=== PATIENT | female | born 1960 | race Caucasian/White ===

== ENCOUNTER 2017-12-22 09:45 | Emergency (ER) | END 2017-12-22 11:54 | disposition home or self-care (01) ==

== ENCOUNTER 2018-10-29 05:25 | Day surgery (SDC) | payer OTHER ==
[2018-10-29] VITALS (8 sets, daily range): BP systolic 111–160; BP diastolic 48–75; PULSE 68–75; RESP 16–18; Ht 165.1 cm; Wt 59.3 kg
[~2018-10-29] VITALS: Ht 165.1 cm; Wt 59.3 kg
[~2018-10-29 05:25] MED LIST: ACET325T33 PO; ATOR40TA68 PO; CARAS PO; CEPH500C PO; CHOL200056 PO; CLOP75TA19 PO; FENO160T13 PO; FER325 PO; GABA100C14 PO; GLIP10TA14 PO; Insulin Glargine SC; LACT1CAP28 PO; LEVO250T9 PO; LISI-313 PO; NOVO3I SC; PANT40TA4 PO; SAN30GM TOP; SITA1TBM7 PO
[2018-10-29] MEDS ORDERED: CEFAZOLIN 2 GM/50 ML (PMX) 50 ML IVPB ONE (07:00)
[2018-10-29] MEDS ORDERED: LACTATED RINGER'S 1,000 ML IV* SCH (07:00)
[2018-10-29] MEDS ORDERED: POLYMYXIN/BACITRACIN 1L IRRIG ONE (07:00)
[2018-10-29] MEDS ORDERED: BUPIVACAINE 0.5% (SDV) 30 ML INJ ONE (07:00)
[2018-10-29] MEDS ORDERED: INSU200I SQ (07:01)
[2018-10-29] MEDS ORDERED: INSU100I33 SC (07:02)
--- NOTE | 2018-10-29 07:02 | HPN ---
Date/Time of Note Date/Time of Note DATE: 10/29/18 TIME: 07:02 Interval H&P Admission Note Pt. seen H&P reviewed: No system changes MEENU PATRICK DPM Oct 29, 2018 07:02
[2018-10-29] MEDS ORDERED: FER325 PO (07:04)
[2018-10-29] MEDS ORDERED: HYDR100T25 PO (07:06)
[2018-10-29] MEDS ORDERED: MECL-77 PO (07:08)
--- NOTE | 2018-10-29 07:18 | PREAC ---
Date/Time of Note Date/Time of Note DATE: 10/29/18 TIME: 07:16 Anesthesia Eval and Record Evaluation Time Pre-Procedure Interview DATE: 10/29/18 TIME: 07:16 Age 58 Sex female NPO: 8 hrs Preoperative diagnosis left foot diabetic ulcer Planned procedure left foot debridement Past Medical History Past Medical History: Includes Cardio: HTN, Dyslipidemia Endo: Diabetes Neuro: Peripheral neuropathy Surgery & Anesthesia Issues No known issue Meds Anticoagulation: No Beta Kristen within 24 hr: No Reason Beta Kristen not given: Pt. not on B-Kristen Active Scripts Levofloxacin* (Levofloxacin*) 250 Mg Tablet, 250 MG PO DAILY@06, #38 TAB 6 weeks therapy (already received 4 days). Prov:LAMONT MARTINS SCIENTOLOGIST 09/05/18 Pantoprazole* (Pantoprazole*) 40 Mg Tablet.dr, 40 MG PO DAILY@06 for 14 Days, #14 Prov:CASSIUS NEGRETE MD 08/26/18 Acetaminophen* (Tylenol*) 325 Mg Tablet, 650 MG PO Q6H PRN for FEVER GREATER THAN 100.6 for 1 Day, #1 TAB Prov:CASSIUS NEGRETE MD 08/26/18 Reported Medications Meclizine Hcl* (Meclizine Hcl*) 25 Mg Tablet, 25 MG PO TID PRN for DIZZINESS, TAB 10/29/18 Hydralazine Hcl* (Hydralazine Hcl*) 100 Mg Tablet, 100 MG PO BID PRN for ELEVATED BLOOD PRESSURE, #90 TAB 10/29/18 Ferrous Sulfate* (Ferrous Sulfate*) 325 Mg Tabec, 325 MG PO DAILY, TAB 10/29/18 Insulin Glargine,Hum.rec.anlog (Basaglar Kwikpen U-100) 100 Unit/1 Ml Insuln.pen, 40 UNIT SC QHS, EA 10/29/18 Insulin Lispro (Humalog Kwikpen) 200 Unit/1 Ml Insuln.pen, 20 UNIT SQ AC BREAKFAST DINNER, EA 10/29/18 Cholecalciferol (Vitamin D3) (Vitamin D-3) 2,000 Unit Tablet, 2000 UNIT PO DAILY, TAB 08/20/18 Glipizide* (Glipizide*) 10 Mg Tablet, 10 MG PO AC BREAKFAST DINNER, TAB 08/20/18 Sitagliptin Phos-Metformin Hcl (Janumet XR) 100-1,000 Mg Tbmp.24hr, 1 TAB PO WITH DINNER, #30 TAB 08/20/18 Lisinopril* (Lisinopril*) 5 Mg Tablet, 5 MG PO BID, #30 TAB 08/20/18 Gabapentin* (Gabapentin*) 100 Mg Capsule, 100 MG PO BID, #90 CAP 08/20/18 Discontinued Reported Medications Ferrous Sulfate* (Ferrous Sulfate*) 325 Mg Tabec, 325 MG PO DAILY, TAB 08/20/18 Clopidogrel Bisulfate* (Clopidogrel Bisulfate*) 75 Mg Tablet, 75 MG PO DAILY, #30 TAB 08/20/18 Fenofibrate, Micronized* (Fenofibrate*) 160 Mg Tablet, 160 MG PO DAILY, TAB 08/20/18 Atorvastatin* (Atorvastatin*) 40 Mg Tablet, 40 MG PO QHS, #30 TAB 08/20/18 Cephalexin* (Cephalexin*) 500 Mg Capsule, 500 MG PO QID, #28 CAP 08/20/18 Discontinued Scripts Collagenase* (Santyl*) 30 Gm Oint..gm., 1 APPLIC TOP DAILY for 14 Days, #14 Prov:CASSIUS NEGRETE MD 08/26/18 [Insulin Glargine] 100 UNITS/ML SOLN No Conflict Check, 40 UNITS SC QHS for 14 Days Check blood sugars at home before meals and at bedtime. Prov:CASSIUS NEGRETE MD 08/26/18 Insulin Aspart* (Novolog Insulin Pen*) 100 Unit/Ml Soln, 13 UNIT SC WITH MEALS for 10 Days, #1 Prov:CASSIUS NEGRETE MD 08/26/18 Sucralfate* (Carafate*) 1 Gm/10 Ml Susp, 1 GM PO QID for 14 Days, #30 2 Refills Prov:CASSIUS NEGRETE MD 08/26/18 Lactobacillus Rhamnosus GG (Culturelle) 1 Each Capsule, 1 CAP PO BID for 7 Days, CAP OTC Prov:CASSIUS NEGRETE MD 08/26/18 Current Medications Cefazolin Sodium/ Dextrose 50 ml @ 100 mls/hr PRE-OP ONCE IVPB ; Start 10/29/18 at 07:00; Stop 10/29/18 at 07:29 Lactated Ringer's 1,000 ml @ 25 mls/hr Q24H IV* ; Start 10/29/18 at 07:00; Stop 10/30/18 at 22:59 Insulin Human Regular (Humulin R) 10 unit ONCE ONCE SC ; Start 10/29/18 at 07:30; Stop 10/29/18 at 07:31; Status UNV Meds reviewed: Yes Allergies Coded Allergies: aspirin (Unverified Allergy, Unknown, itching, 10/29/18) Allergies Reviewed: Yes Labs/Studies Labs Reviewed: Reviewed by anesthesiologist (glucose 298, dr keith is aware and wishes to proceed with case, plan to give 10 units insulin.) test: N/A Studies: ECG, CXR Pre-procedure Exam Last vitals Vital Signs Date Temp Pulse Resp B/P (MAP) Pulse Ox O2 O2 Flow FiO2 Time Delivery Rate 10/29/18 97.8 68 16 160/75 96 05:40 (103) Airway: Adequate mouth opening, Adequate thyromental dist Mallampati: Mallampati II Teeth: Normal (edentulous) Lung: Normal Heart: Normal ASA Physical Status ASA physical status: 3 Emergency: None Planned Anesthetic General/MAC: LMA Planned Pain Management Parenteral pain med, Local by surgeon Pre-operative Attestations Prior to commencing anesthesia and surgery, the patient was re-evaluated, there was verification of: *The patient's identity *The results of appropriate recent lab work and preoperative vital signs *The above evaluation not changing prior to induction *Anesthetic plan, risk benefits, alternative and complications discussed with patient/family; questions answered; patient/family understands, accepts and wishes to proceed. JIMI PATEL Oct 29, 2018 07:18
[2018-10-29] MEDS ORDERED: FENTAnyl 50 MCG/ML VIAL ONE (07:27)
[2018-10-29] MEDS ORDERED: CEFAZOLIN 1 GM INJ ONE (07:27)
[2018-10-29] MEDS ORDERED: PROPOFOL 40 ML ONE (07:27)
[2018-10-29] MEDS ORDERED: MIDAZOLAM 1 MG/ML 2 ML INJ ONE (07:27)
[2018-10-29] MEDS ORDERED: HYDROCODONE/APAP (10/325) TAB PO PRN (07:30)
[2018-10-29] MEDS ORDERED: ONDANSETRON (ODT) 4 MG TAB ODT PRN (07:30)
[2018-10-29] MEDS ORDERED: GLUCAGON 1 MG INJ IM PRN (07:30)
[2018-10-29] MEDS ORDERED: GLUCOSE GEL 15 GRAM TUBE BUCCAL PRN (07:30)
[2018-10-29] MEDS ORDERED: GLUCOSE GEL 15 GRAM TUBE PO PRN ×2 (07:30)
[2018-10-29] MEDS ORDERED: DEXTROSE 50% 50 ML SYRINGE IV PRN ×2 (07:30)
[2018-10-29] MEDS ORDERED: INSULIN REGULAR, HUMAN 100 UNIT/1 ML 3ML VIAL SC ONE (07:30)
[2018-10-29] MEDS ORDERED: METOCLOPRAMIDE 10 MG INJ ONE (07:38)
[2018-10-29] MEDS ORDERED: ONDANSETRON 4 MG INJ ONE (07:38)
[2018-10-29] MEDS ORDERED: POLYMYXIN B 500000 UNIT INJ ONE (07:38)
[2018-10-29] MEDS ORDERED: BACITRACIN 50000 UNITS INJ ONE (07:39)
[2018-10-29] MEDS ORDERED: VANCOMYCIN 1 GM INJ ONE (07:48)
[2018-10-29] MEDS ORDERED: TOBRAMYCIN 1.2 GM POWDER ONE (07:48)
[2018-10-29] MEDS ORDERED: FENTAnyl 50 MCG/ML VIAL IV PRN ×3 (08:30)
[2018-10-29] MEDS ORDERED: ONDANSETRON 4 MG INJ IV PRN (08:30)
[2018-10-29] MEDS ORDERED: OXYCODONE/ACETAMINOPHEN (5/325) TAB PO PRN ×2 (08:30)
--- NOTE | 2018-10-29 09:04 | SIPON ---
Date/Time of Note Date/Time of Note DATE: 10/29/18 TIME: 09:01 Operative Report Preoperative Diagnosis Osteomyelitis 1st Met. and Prox Phalanx Postoperative Diagnosis Same Operation/Procedure Performed Debridement of Osteomyelitis Bone application of antibiotic beads. Allograft. Calcaneal region. Surgeon see signature line operator/assistant foreman none. Anesthesia: MAC Estimated blood loss: minimal Transfusion Required none Specimen Osteomyelitic bone. Grafts/Implants none Complications none MEENU PATRICK DPM Oct 29, 2018 09:04
--- NOTE | 2018-10-29 09:21 | PAC ---
Date/Time of Note Date/Time of Note DATE: 10/29/18 TIME: 09:21 Post-Anesthesia Notes Post-Anesthesia Note Last documented vital signs Vital Signs Date Temp Pulse Resp B/P (MAP) Pulse Ox O2 O2 Flow FiO2 Time Delivery Rate 10/29/18 98.9 09:04 10/29/18 75 118/54 99 Room Air 08:58 (75) 10/29/18 16 05:40 Activity: WNL Respiratory function: WNL Cardiovascular function: WNL Mental status: Baseline Pain reasonably controlled: Yes Hydration appropriate: Yes Nausea/Vomiting absent: Yes JIMI PATEL Oct 29, 2018 09:21
--- NOTE | 2018-10-29 13:34 | OPR ---
DATE OF OPERATION: 10/29/2018 PREOPERATIVE DIAGNOSIS: Left foot osteomyelitis of the 1st metatarsal and proximal phalanx. POSTOPERATIVE DIAGNOSIS: Left foot osteomyelitis of the 1st metatarsal and proximal phalanx. OPERATIONS: Debridement of osteomyelitic bone of the 1st metatarsal and proximal phalanx of the left foot, ulceration of the medial calcaneal region, osteomyelitis. DESCRIPTION OF PROCEDURE: The patient was brought into the OR and left foot and ankle was prepared utilizing Betadine solution. A tourniquet was applied around the left ankle. The foot and ankle were then exsanguinated and the tourniquet was applied and was elevated to approximately 250 mmHg. It should be noted that approximately 10 mL of 0.5% plain Marcaine was utilized circumferentially around the 1st metatarsophalangeal joint region and approximately 5 mL was used around the ulceration at the calcaneal region medially, left foot. Attention was then directed to the dorsomedial aspect where the ulceration which is approximately 2.5 x 2 cm was circumscribed with a skin arthroplasty. The incision site was then deepened down to the capsular tissue. It should be noted that the capsular tissue demonstrated very atypical dystrophic scar tissue. The #15 blade was then utilized to perform a linear capsulotomy down to the bone of head of 1st metatarsal and the base of the proximal phalanx. The osteomyelitic bone was noted at the distal aspect of the 1st metatarsal. Utilizing a sagittal saw, the osteomyelitic bone region was removed in toto. At the base of proximal phalanx, the sagittal saw was utilized to remove approximately 3 to 4 mm of bone which was osteomyelitic. The bone was then inspected both at the proximal phalanx and the 1st metatarsal and no osteomyelitic changes clinically were noted. It should be noted that deep culture was taken, aerobic and anaerobic. The joint space was then once again inspected and the area was copiously lavaged with antibiotic solution. Utilizing a #15 blade, the scar tissue was freed up more over at lateral aspect of head of the 1st metatarsal as well as base of the proximal phalanx. After copiously lavaged with antibiotic solution, the deep space was filled utilizing antibiotic beads approximately 10 mL of Stimulan into the space area. This aligned and approximated the 1st metatarsal and the proximal phalanx. The area was then inspected once again utilizing a scissor and #15 blade, any remaining scar tissue was removed around the capsular region. The capsule was then closed utilizing 2-0 Vicryl suture. There was good range of motion noted of the great toe on the 1st metatarsal. The capsular area was closed in the subcutaneous tissue was closed with 2-0 Vicryl suture. Utilizing 3-0 nylon suture in horizontal mattress was utilized to close the incision site back to the proximal aspect. Approximately 1 cm of the proximal incision was left nonsutured and quarter-inch [place] drain was applied to the area. Attention was then redirected to the medial calcaneal region where utilizing a #10 blade and a curet, the ulceration was debrided down to the fascial layer. After debridement, application of Stravix 2 x 4 cm allograft was applied over the ulceration. This was secured down with a 3-0 nylon suture of circumferentially around the allograft. At the end of the case, approximately 7 mL of 0.5% plain Marcaine was utilized around the 1st metatarsal and the calcaneal region. The dressing of Adaptic, 4 x 4's, rolled gauze and Coban was then applied. The tourniquet was released and normoactive hyperemia was noted to the digits of the left foot. The patient tolerated the procedure well and left the room in stable condition. There were no intraoperative complications. There was minimal blood loss noted. Dictated By: MEENU SHEPHERD/KAMRYN Conf#: [id number] DID#: [id number]
== END 2018-10-29 12:06 | disposition home or self-care (01) ==
LOC: SDS 05:25
PROVIDERS: ATTEND Podiatrist Foot & Ankle Surgery
DX: M86.672 Other chronic osteomyelitis, left ankle and foot (principal); E11.621 Type 2 diabetes mellitus with foot ulcer; I10 Essential (primary) hypertension
CPT/HCPCS: 11044; 73630; 82962; 84132; 87070; 87075; 88304; 88311; 97162; C1713; J0690; J1815; J2250; J2405; J2765; J3010; J3370; Z7512; Z7610

== ENCOUNTER 2018-11-11 03:35 | Inpatient (IN) | payer OTHER ==
[~2018-11-11] VITALS: Ht 162.6 cm; Wt 67.8 kg
[~2018-11-11 03:35] MED LIST changes: -ATOR40TA68 PO; -CARAS PO; -CEPH500C PO; -CLOP75TA19 PO; -FENO160T13 PO; +HYDR100T25 PO; +INSU100I33 SC; +INSU200I SQ; -Insulin Glargine SC; -LACT1CAP28 PO; +MECL-77 PO; -NOVO3I SC; -SAN30GM TOP
[2018-11-11] MEDS ORDERED: SOD CHLORIDE 0.9% 500 ML IV STA (05:09)
[2018-11-11] MEDS ORDERED: ONDANSETRON 4 MG INJ IV STA (05:09)
[2018-11-11] MEDS ORDERED: morphine 4 MG/ML VIAL IV STA (05:09)
[2018-11-11] MEDS ORDERED: PIPER-TAZO 3.375 GM IV (PMX) 100 ML IVPB STA (06:10)
[2018-11-11] MEDS ORDERED: ACETAMINOPHEN 325 MG TAB PO PRN ×2 (06:30→07:00)
[2018-11-11] MEDS ORDERED: VANCOMYCIN 1 GM (PMX) 250 ML IVPB ONE (06:30)
[2018-11-11] MEDS ORDERED: ONDANSETRON 4 MG INJ IV PRN ×2 (06:30→07:00)
[2018-11-11] MEDS ORDERED: VANCOMYCIN IV PER PHARMACY XX SCH (07:00)
[2018-11-11] MEDS ORDERED: LEVOFLOXACIN 750MG/D5W (PMX) 150 ML IVPB SCH (07:00)
[2018-11-11] MEDS ORDERED: BISACODYL (EC) 5 MG TAB PO PRN (07:00)
[2018-11-11] MEDS ORDERED: HYDROCODONE/APAP (5/325) TAB PO PRN (07:00)
[2018-11-11] MEDS ORDERED: NACL 0.9% 3 ML SYG IV SCH (07:00)
[2018-11-11] MEDS ORDERED: DOCUSATE SODIUM 100 MG CAP PO PRN (07:00)
[2018-11-11] MEDS ORDERED: hydrALAzine 20 MG INJ IV ONE (07:30)
--- NOTE | 2018-11-11 07:32 | ERD ---
ER Documentation Chief Complaint Chief Complaint Pt reports sx on L foot 10/29/18 c/o vomiting and pain to foot HPI Patient is a 58-year-old female with hypertension and diabetes who presents with a left foot wound. The patient said that she recently had a procedure done on her left foot by podiatry and they took out the stitches. However the wound is open and there is yellow water coming from the wound. The patient has no fever s. She is having vomiting. She has foot pain as well. Upon review of old medical records this is the patient's third visit to the ER since November 2017. ROS All systems reviewed and are negative except as per history of present illness. Medications Home Meds Active Scripts Levofloxacin* (Levofloxacin*) 250 Mg Tablet, 250 MG PO DAILY@06, #38 TAB 6 weeks therapy (already received 4 days). Prov:LAMONT MARTINS NP 09/05/18 Pantoprazole* (Pantoprazole*) 40 Mg Tablet.dr, 40 MG PO DAILY@06 for 14 Days, #14 Prov:CASSIUS NEGRETE MD 08/26/18 Acetaminophen* (Tylenol*) 325 Mg Tablet, 650 MG PO Q6H PRN for FEVER GREATER THAN 100.6 for 1 Day, #1 TAB Prov:CASSIUS NEGRETE MD 08/26/18 Reported Medications Meclizine Hcl* (Meclizine Hcl*) 25 Mg Tablet, 25 MG PO TID PRN for DIZZINESS, TAB 10/29/18 Hydralazine Hcl* (Hydralazine Hcl*) 100 Mg Tablet, 100 MG PO BID PRN for ELEVATED BLOOD PRESSURE, #90 TAB 10/29/18 Ferrous Sulfate* (Ferrous Sulfate*) 325 Mg Tabec, 325 MG PO DAILY, TAB 10/29/18 Insulin Glargine,Hum.rec.anlog (Basaglar Kwikpen U-100) 100 Unit/1 Ml Insuln.pen, 40 UNIT SC QHS, EA 10/29/18 Insulin Lispro (Humalog Kwikpen) 200 Unit/1 Ml Insuln.pen, 20 UNIT SQ AC BREAKFAST DINNER, EA 10/29/18 Cholecalciferol (Vitamin D3) (Vitamin D-3) 2,000 Unit Tablet, 2000 UNIT PO DAILY, TAB 08/20/18 Glipizide* (Glipizide*) 10 Mg Tablet, 10 MG PO AC BREAKFAST DINNER, TAB 08/20/18 Sitagliptin Phos-Metformin Hcl (Janumet XR) 100-1,000 Mg Tbmp.24hr, 1 TAB PO WITH DINNER, #30 TAB 08/20/18 Lisinopril* (Lisinopril*) 5 Mg Tablet, 5 MG PO BID, #30 TAB 08/20/18 Gabapentin* (Gabapentin*) 100 Mg Capsule, 100 MG PO BID, #90 CAP 08/20/18 Allergies Allergies: Coded Allergies: aspirin (Unverified Allergy, Unknown, itching, 10/29/18) PMhx/Soc History of Surgery: Yes (LEFT FOOT X2,RIGHT FOOT X1) Anesthesia Reaction: No Hx Neurological Disorder: No Hx Respiratory Disorders: No Hx Cardiac Disorders: Yes (HTN, HLD) Hx Psychiatric Problems: No Hx Miscellaneous Medical Probl: Yes (DM) Hx Alcohol Use: No Hx Substance Use: No Hx Tobacco Use: No Smoking Status: Never smoker FmHx Family History: No diabetes Physical Exam Vitals Vital Signs Date Temp Pulse Resp B/P (MAP) Pulse Ox O2 O2 Flow FiO2 Time Delivery Rate 11/11/18 98.4 82 19 156/77 100 Room Air 07:20 (103) 11/11/18 97.8 96 20 227/88 99 03:37 (134) Physical Exam Const: No acute distress Head: Atraumatic Eyes: Normal Conjunctiva ENT: Normal External Ears, Nose and Mouth. Neck: Full range of motion. No meningismus. Resp: Clear to auscultation bilaterally Cardio: Regular rate and rhythm, no murmurs Abd: Soft, non tender, non distended. Normal bowel sounds Skin: Open wound to the medial aspect of the left foot with drainage, foul- smelling, dry wound to the left heel Back: No midline or flank tenderness Ext: No cyanosis, or edema Neur: Awake and alert Psych: Normal Mood and Affect Result Diagram: 11/11/1852511/11/18 0526 Results 24 hrs Laboratory Tests Test 11/11/18 05:26 White Blood Count 9.7 10^3/ul Red Blood Count 4.29 10^6/ul Hemoglobin 8.4 g/dl Hematocrit 27.9 % Mean Corpuscular Volume 65.0 fl Mean Corpuscular Hemoglobin 19.6 pg Mean Corpuscular Hemoglobin Concent 30.1 g/dl Red Cell Distribution Width 16.0 % Platelet Count 322 10^3/UL Mean Platelet Volume 10.4 fl Immature Granulocytes % 0.300 % Neutrophils % 72.7 % Lymphocytes % 18.9 % Monocytes % 6.5 % Eosinophils % 1.2 % Basophils % 0.4 % Nucleated Red Blood Cells % 0.0 /100WBC Immature Granulocytes # 0.030 10^3/ul Neutrophils # 7.0 10^3/ul Lymphocytes # 1.8 10^3/ul Monocytes # 0.6 10^3/ul Eosinophils # 0.1 10^3/ul Basophils # 0.0 10^3/ul Nucleated Red Blood Cells # 0.0 10^3/ul Sodium Level 138 mmol/L Potassium Level 5.4 mmol/L Chloride Level 105 mmol/L Carbon Dioxide Level 22 mmol/L Anion Gap 11 Blood Urea Nitrogen 26 mg/dl Creatinine 0.98 mg/dl Est Glomerular Filtrat Rate mL/min 58 mL/min Glucose Level 220 mg/dl Calcium Level 10.4 mg/dl Total Bilirubin 0.2 mg/dl Direct Bilirubin 0.00 mg/dl Indirect Bilirubin 0.2 mg/dl Aspartate Amino Transf (AST/SGOT) 19 IU/L Alanine Aminotransferase (ALT/SGPT) 17 IU/L Alkaline Phosphatase 170 IU/L Troponin I < 0.012 ng/ml B-Type Natriuretic Peptide 340 PG/ML Total Protein 8.0 g/dl Albumin 4.4 g/dl Globulin 3.60 g/dl Albumin/Globulin Ratio 1.22 Current Medications Medications Dose Sig/Jyothi Start Time Status Last (Trade) Ordered Route PRN Stop Time Admin Dose Reason Admin Sodium 500 ml @ Q1H STAT 11/11/18 DC 11/11/18 Chloride 500 mls/hr IV 05:09 05:26 11/11/18 06:08 Morphine 4 mg ONCE STAT 11/11/18 DC 11/11/18 Sulfate IV 05:09 05:26 (morphine) 11/11/18 05:10 Ondansetron 4 mg ONCE STAT 11/11/18 DC 11/11/18 HCl (Zofran IV 05:09 05:26 Inj) 11/11/18 05:10 Vancomycin 250 ml @ ONCE ONCE 11/11/18 11/11/18 HCl 125 mls/hr IVPB 06:30 07:27 11/11/18 08:29 Piperacillin 100 ml @ ONCE STAT 11/11/18 DC 11/11/18 Sod/ 200 mls/hr IVPB 06:10 06:58 Tazobactam 11/11/18 06:39 Sod Ondansetron 4 mg BRIDGE ORDER 11/11/18 DC HCl (Zofran PRN IV 06:30 Inj) NAUSEA/VOMITI 11/11/18 07:23 NG 650 mg ER BRIDGE 11/11/18 DC Acetaminophen PRN PO 06:30 (Tylenol .MILD PAIN 11/11/18 07:23 Tab) 1-3 OR TEMP IV Flush 3 ml PER 11/11/18 (NS 3 ml) PROTOCOL IV 07:00 Ondansetron 4 mg Q6H PRN 11/11/18 HCl (Zofran IV 07:00 Inj) NAUSEA/VOMITI NG 650 mg Q6H PRN 11/11/18 Acetaminophen PO .PAIN 1-3 07:00 (Tylenol OR TEMP Tab) 1 tab Q6H PRN 11/11/18 Acetaminophen PO .MOD PAIN 07:00 / 4-6 Hydrocodone Bitart ([place] (5/325)) Docusate 100 mg Q12H PRN 11/11/18 Sodium PO 07:00 (Colace) .CONSTIPATION Bisacodyl 5 mg DAILY PRN 11/11/18 (Dulcolax) PO 07:00 .CONSTIPATION 150 ml @ Q24H IVPB 11/11/18 UNV Levofloxacin/ 100 mls/hr 07:00 Dextrose Vancomycin VANCOMYCIN PER 11/11/18 UNV HCl (Vanco PER PHARMACY PROTOCOL XX 07:00 Iv Per Pharmacy) Hydralazine 100 mg BID PRN 11/11/18 UNV HCl PO ELEVATED 07:30 (Apresoline) BLOOD PRESSURE Insulin 40 unit QHS SC 11/11/18 UNV Glargine 21:00 (Lantus) 40 mg DAILY@06 11/12/18 Pantoprazole PO 06:00 (Protonix Tab) 20 unit AC BREAKFAST 11/11/18 UNV Miscellaneous DINNER SQ 17:30 Information Lisinopril 5 mg BID PO 11/11/18 UNV (Zestril) 09:00 Hydralazine 10 mg ONCE ONCE 11/11/18 HCl IV 07:30 (Apresoline) 11/11/18 07:31 Procedures/MDM Chest x-ray done by radiology. X-ray left foot read by radiology. Ultrasound of the lower extremities read by radiology. Patient is a 58-year-old female who presents with a diabetic foot wound with infection. I doubt sepsis at this time. However this is a nonhealing wound that is getting worse. There is drainage and she does have diabetes. For this reason I believe the patient requires inpatient admission for IV antibiotics. Vancomycin and Zosyn were given after blood cultures were obtained. The patient will be admitted to the care of Dr. Topete from the panel team. The patient will likely need podiatry and wound care consults while admitted to the hospital. Departure Diagnosis: Primary Impression: Diabetic foot infection Additional Impression: Vomiting Vomiting type: unspecified Vomiting Intractability: non-intractable Nausea presence: with nausea Qualified Codes: R11.2 - Nausea with vomiting, unspecified Condition: GOLDIE Duarte MD Nov 11, 2018 07:31
[2018-11-11] MEDS ORDERED: GLUCOSE GEL 15 GRAM TUBE PO PRN ×2 (08:00)
[2018-11-11] MEDS ORDERED: INSULIN ASPART [NOVOLOG] 3 ML PEN SC SCH (08:00)
[2018-11-11] MEDS ORDERED: GLUCOSE GEL 15 GRAM TUBE BUCCAL PRN (08:00)
[2018-11-11] MEDS ORDERED: DEXTROSE 50% 50 ML SYRINGE IV PRN ×2 (08:00)
[2018-11-11] MEDS ORDERED: GLUCAGON 1 MG INJ IM PRN (08:00)
[2018-11-11] MEDS ORDERED: LISINOPRIL 5 MG TAB PO SCH (09:00)
[2018-11-11 09:50] VITALS: Ht 162.6 cm; Wt 67.8 kg
[2018-11-11 10:05] VITALS: BP 119/57; PULSE 85; RESP 18
--- NOTE | 2018-11-11 13:17 | HP ---
Date/Time of Note Date/Time of Note DATE: 11/11/18 TIME: 13:07 Assessment/Plan VTE Prophylaxis SCD contraindicated: other Pharmacological prophylaxis: LMWH Lines/Catheters IV Catheter Type (from Nrs): Saline Lock Assessment/Plan Hospital Course SUBJECTIVE: Lying in bed comfortably. No acute distress. OBJECTIVE: Vital signs-see below PHYSICAL EXAM: Constitutional: Well-developed, well-nourished not in acute distress. HEENT: Head atraumatic and normocephalic. Eyes: Extraocular muscles intact. Anicteric sclerae. Pupils equal bilaterally, reactive to light. NECK: Supple without lymph node. CHEST: Clear and good breath sounds equally. No wheezing. No rhonchi. HEART: S1, S2. Regular rate and rhythm. ABDOMEN: Soft with no rebound tenderness. Bowel sounds were present. EXTREMITIES: Left foot covered with Kerlix dressing, clean/dry/intact. No oozing noted outside. Full range of motion in all the extremities. No cyanosis, clubbing or edema. NEUROLOGIC: Alert and oriented x3. No focal deficit. No sensory deficit. PSYCHOSOCIAL: In a good mood. No signs of depression. INTEGUMENTARY: Moist mucous membranes. Good skin turgor, intact. ASSESSMENT AND PLAN: 58-year-old female with diabetes, hypertension, diabetic foot ulcers with history of multiple toe amputations, osteomyelitis, who also had a recent procedure done on her left foot with sutures removed last week, came back with wound remained open and started draining yellow secretions. 1. Left draining diabetic foot ulcer. -Podiatry consult with -Wound management per side stapler. Obtain cultures. -IV antimicrobials and ID consultation for further abx management. 2. Chronic anemia with inflammation -Stable H&H -on iron 3. Essential hypertension. -Needs more control. We will up titrate lisinopril 4.Diabetic neuropathy Resume gabapentin 5.Type 2 diabetes -A1c -Continue insulin Lantus. Start Accu-Cheks/pre-meal insulin and sliding scale insulin. -Normal heart rate controlled diet. 6.Vitamin D deficiency. -resume supplementation. DVT prophylaxis: Lovenox PUD prophylaxis: PPI Rest of the management depend on hospital course. Approximately 60 m spent on this history and physical. Patient was seen in collaboration with Dr. Junior. Result Diagram: 4/16/19 0526 4/16/19 0526 Results 24hrs Laboratory Tests Test 11/11/18 05:26 White Blood Count 9.7 # Red Blood Count 4.29 Hemoglobin 8.4 L Hematocrit 27.9 L Mean Corpuscular Volume 65.0 L Mean Corpuscular Hemoglobin 19.6 L Mean Corpuscular Hemoglobin Concent 30.1 L Red Cell Distribution Width 16.0 H Platelet Count 322 Mean Platelet Volume 10.4 Immature Granulocytes % 0.300 Neutrophils % 72.7 Lymphocytes % 18.9 Monocytes % 6.5 Eosinophils % 1.2 Basophils % 0.4 Nucleated Red Blood Cells % 0.0 Immature Granulocytes # 0.030 Neutrophils # 7.0 Lymphocytes # 1.8 Monocytes # 0.6 Eosinophils # 0.1 Basophils # 0.0 Nucleated Red Blood Cells # 0.0 Sodium Level 138 Potassium Level 5.4 H Chloride Level 105 Carbon Dioxide Level 22 Anion Gap 11 Blood Urea Nitrogen 26 H Creatinine 0.98 Est Glomerular Filtrat Rate mL/min 58 L Glucose Level 220 Calcium Level 10.4 H Total Bilirubin 0.2 Direct Bilirubin 0.00 Indirect Bilirubin 0.2 Aspartate Amino Transf (AST/SGOT) 19 Alanine Aminotransferase (ALT/SGPT) 17 Alkaline Phosphatase 170 H Troponin I < 0.012 B-Type Natriuretic Peptide 340 H Total Protein 8.0 Albumin 4.4 Globulin 3.60 H Albumin/Globulin Ratio 1.22 HPI/ROS Admit Date/Time Admit Date/Time Nov 11, 2018 at 06:24 Hx of Present Illness This is a 58-year-old female with type 2 diabetes, hypertension, iron deficient anemia, diabetic foot ulceration, history of multiple toe amputations, neurop athy, history of osteomyelitis, admitted with left foot diabetic ulcer with draining. Apparently, patient had recent left foot/toe debridement about 2 weeks ago and was seen by her side stapler in the clinic last week and her sutures were removed. Wound remained open since sutures were taken out and then it started to drain yellow secretions for which she decided to come back to the emergency room. Patient denied chest pain, dizziness, shortness of breath, nausea, vomiting, abdominal pain, loss of consciousness, dizziness, speech difficulties, vision changes, numbness, tingling or other constitutional symptoms. Initial labs hemoglobin 8.4, hematocrit 27.9, potassium 5.4. Did not show any acute process or evidence of osteomyelitis. Venous ultrasound was negative for DVT. ROS A 12 point review of system was assessed and is negative other than what is ment ioned in the HPI. PMH/Family/Social Past Medical History See HPI Medications Current Medications IV Flush (NS 3 ml) 3 ml PER PROTOCOL IV ; Start 11/11/18 at 07:00 Ondansetron HCl (Zofran Inj) 4 mg Q6H PRN IV NAUSEA/VOMITING; Start 11/11/18 at 07:00 Acetaminophen (Tylenol Tab) 650 mg Q6H PRN PO .PAIN 1-3 OR TEMP; Start 11/11/18 at 07:00 Acetaminophen/ Hydrocodone Bitart ([place] (5/325)) 1 tab Q6H PRN PO .MOD PAIN 4- 6; Start 11/11/18 at 07:00 Docusate Sodium (Colace) 100 mg Q12H PRN PO .CONSTIPATION; Start 11/11/18 at 07:00 Bisacodyl (Dulcolax) 5 mg DAILY PRN PO .CONSTIPATION; Start 11/11/18 at 07:00 Vancomycin HCl (Vanco Iv Per Pharmacy) VANCOMYCIN PER PHARMACY PER PROTOCOL XX ; Start 11/11/18 at 07:00 Hydralazine HCl (Apresoline) 100 mg BID PO ; Start 11/11/18 at 09:00 Insulin Glargine (Lantus) 40 units QHS SC ; Start 11/11/18 at 21:00 Pantoprazole (Protonix Tab) 40 mg DAILY@06 PO ; Start 11/12/18 at 06:00 Insulin Aspart (Novolog Insulin Pen) 20 unit AC BREAKFAST DINNER SC ; Start 11/11/18 at 08:00 Lisinopril (Zestril) 5 mg BID PO ; Start 11/11/18 at 09:00 Miscellaneous Information 1 ea NOTE XX ; Start 11/11/18 at 08:00 Glucose (Glutose) 15 gm Q15M PRN PO DECREASED GLUCOSE; Start 11/11/18 at 08:00 Glucose (Glutose) 22.5 gm Q15M PRN PO DECREASED GLUCOSE; Start 11/11/18 at 08:00 Dextrose (D50w Syringe) 25 ml Q15M PRN IV DECREASED GLUCOSE; Start 11/11/18 at 08:00 Dextrose (D50w Syringe) 50 ml Q15M PRN IV DECREASED GLUCOSE; Start 11/11/18 at 08:00 Glucagon (Glucagen) 1 mg Q15M PRN IM DECREASED GLUCOSE; Start 11/11/18 at 08:00 Glucose (Glutose) 15 gm Q15M PRN BUCCAL DECREASED GLUCOSE; Start 11/11/18 at 08:00 Vancomycin HCl 100 ml @ 100 mls/hr Q12H IVPB ; Start 11/11/18 at 18:00 Levofloxacin/ Dextrose 150 ml @ 100 mls/hr Q24H IVPB ; Start 11/11/18 at 14:00 Miscellaneous Information (* Miscellaneous Pharmacy Order) Discontinue current oral sulfonylur... ONCE ONCE XX ; Start 11/11/18 at 13:00; Stop 11/11/18 at 13:01; Status UNV Diagnostic Test (Pha) (Accu-Chek) 1 ea 02 XX ; Start 11/12/18 at 02:00; Status UNV Insulin Aspart (Novolog Insulin Pen) 7 unit WITH MEALS SC ; Start 11/11/18 at 17:35; Status UNV Miscellaneous Information (* Miscellaneous Pharmacy Order) HYPOGLYCEMIA PROTOCOL w... ONCE ONCE XX ; Start 11/11/18 at 13:00; Stop 11/11/18 at 13:01; Status UNV Insulin Aspart (Novolog Insulin Pen) NOVOLOG *MILD* ALGORITHM WITH MEALS BEDTIME SC ; Start 11/11/18 at 18:05; Status UNV Miscellaneous Information (* Miscellaneous Pharmacy Order) Discontinue all previ... ONCE ONCE XX ; Start 11/11/18 at 13:00; Stop 11/11/18 at 13:01; Status UNV Coded Allergies: aspirin (Verified Allergy, Unknown, itching, 11/11/18) Past Surgical History See HPI Family History Significant Family History: no pertinent family hx Social History Denied history of alcohol, smoking or illicit drug use. Smoking Status: Never smoker Exam/Review of Systems Vital Signs Vitals Vital Signs Date Temp Pulse Resp B/P (MAP) Pulse Ox O2 O2 Flow FiO2 Time Delivery Rate 11/11/18 98.6 85 18 119/57 94 Room Air 10:05 (77) FLORENCE SAUNDERS NP Nov 11, 2018 13:17
[2018-11-11 14:52] VITALS: BP 136/62; PULSE 81; RESP 18
[2018-11-11] MEDS: LEVOFLOXACIN 750MG/D5W (PMX) 150 ML IVPB SCH (15:23)
--- NOTE | 2018-11-11 17:32 | CONS ---
Consultation Date/Type/Reason Admit Date/Time Nov 11, 2018 at 06:24 Date/Time of Note DATE: 11/11/18 TIME: 17:30 Hx of Present Illness Approximately 2 weeks post debridement of the osteomyelitic bone of the left foot 1st Met. Past Medical History Home Meds Active Scripts Levofloxacin* (Levofloxacin*) 250 Mg Tablet, 250 MG PO DAILY@06, #38 TAB 6 weeks therapy (already received 4 days). Prov:LAMONT MARTINS NP 09/05/18 Pantoprazole* (Pantoprazole*) 40 Mg Tablet.dr, 40 MG PO DAILY@06 for 14 Days, #14 Prov:CASSIUS NEGRETE MD 08/26/18 Acetaminophen* (Tylenol*) 325 Mg Tablet, 650 MG PO Q6H PRN for FEVER GREATER THAN 100.6 for 1 Day, #1 TAB Prov:CASSIUS NEGRETE MD 08/26/18 Reported Medications Meclizine Hcl* (Meclizine Hcl*) 25 Mg Tablet, 25 MG PO TID PRN for DIZZINESS, TAB 10/29/18 Hydralazine Hcl* (Hydralazine Hcl*) 100 Mg Tablet, 100 MG PO BID PRN for ELEVATED BLOOD PRESSURE, #90 TAB 10/29/18 Ferrous Sulfate* (Ferrous Sulfate*) 325 Mg Tabec, 325 MG PO DAILY, TAB 10/29/18 Insulin Glargine,Hum.rec.anlog (Basaglar Kwikpen U-100) 100 Unit/1 Ml Ins uln.pen, 40 UNIT SC QHS, EA 10/29/18 Insulin Lispro (Humalog Kwikpen) 200 Unit/1 Ml Insuln.pen, 20 UNIT SQ AC BREAKFAST DINNER, EA 10/29/18 Cholecalciferol (Vitamin D3) (Vitamin D-3) 2,000 Unit Tablet, 2000 UNIT PO DAILY, TAB 08/20/18 Glipizide* (Glipizide*) 10 Mg Tablet, 10 MG PO AC BREAKFAST DINNER, TAB 08/20/18 Sitagliptin Phos-Metformin Hcl (Janumet XR) 100-1,000 Mg Tbmp.24hr, 1 TAB PO WITH DINNER, #30 TAB 08/20/18 Lisinopril* (Lisinopril*) 5 Mg Tablet, 5 MG PO BID, #30 TAB 08/20/18 Gabapentin* (Gabapentin*) 100 Mg Capsule, 100 MG PO BID, #90 CAP 08/20/18 Medications Current Medications IV Flush (NS 3 ml) 3 ml PER PROTOCOL IV ; Start 11/11/18 at 07:00 Ondansetron HCl (Zofran Inj) 4 mg Q6H PRN IV NAUSEA/VOMITING; Start 11/11/18 at 07:00 Acetaminophen (Tylenol Tab) 650 mg Q6H PRN PO .PAIN 1-3 OR TEMP; Start 11/11/18 at 07:00 Acetaminophen/ Hydrocodone Bitart ([place] (5/325)) 1 tab Q6H PRN PO .MOD PAIN 4- 6; Start 11/11/18 at 07:00 Docusate Sodium (Colace) 100 mg Q12H PRN PO .CONSTIPATION; Start 11/11/18 at 07:00 Bisacodyl (Dulcolax) 5 mg DAILY PRN PO .CONSTIPATION; Start 11/11/18 at 07:00 Vancomycin HCl (Vanco Iv Per Pharmacy) VANCOMYCIN PER PHARMACY PER PROTOCOL XX ; Start 11/11/18 at 07:00 Insulin Glargine (Lantus) 40 units QHS SC ; Start 11/11/18 at 21:00 Pantoprazole (Protonix Tab) 40 mg DAILY@06 PO ; Start 11/12/18 at 06:00 Miscellaneous Information 1 ea NOTE XX ; Start 11/11/18 at 08:00 Glucose (Glutose) 15 gm Q15M PRN PO DECREASED GLUCOSE; Start 11/11/18 at 08:00 Glucose (Glutose) 22.5 gm Q15M PRN PO DECREASED GLUCOSE; Start 11/11/18 at 08:00 Dextrose (D50w Syringe) 25 ml Q15M PRN IV DECREASED GLUCOSE; Start 11/11/18 at 08:00 Dextrose (D50w Syringe) 50 ml Q15M PRN IV DECREASED GLUCOSE; Start 11/11/18 at 08:00 Glucagon (Glucagen) 1 mg Q15M PRN IM DECREASED GLUCOSE; Start 11/11/18 at 08:00 Glucose (Glutose) 15 gm Q15M PRN BUCCAL DECREASED GLUCOSE; Start 11/11/18 at 08:00 Vancomycin HCl 100 ml @ 100 mls/hr Q12H IVPB ; Start 11/11/18 at 18:00 Levofloxacin/ Dextrose 150 ml @ 100 mls/hr Q24H IVPB Last administered on 11/11/18at 15:23; Admin Dose 100 MLS/HR; Start 11/11/18 at 14:00 Diagnostic Test (Pha) (Accu-Chek) 1 ea 02 XX ; Start 11/12/18 at 02:00 Insulin Aspart (Novolog Insulin Pen) 7 unit WITH MEALS SC ; Start 11/11/18 at 17:35 Insulin Aspart (Novolog Insulin Pen) NOVOLOG *MILD* ALGORITHM WITH MEALS BEDTIME SC ; Start 11/11/18 at 18:05 Lisinopril (Zestril) 10 mg BID PO ; Start 11/11/18 at 21:00 Hydralazine HCl (Apresoline) 50 mg BID PO ; Start 11/11/18 at 21:00 Enoxaparin Sodium (Lovenox) 40 mg DAILY SC ; Start 11/12/18 at 09:00 Allergies: Coded Allergies: aspirin (Verified Allergy, Unknown, itching, 11/11/18) Social History Smoking Status: Never smoker Exam/Review of Systems Exam Vitals Vital Signs Date Temp Pulse Resp B/P (MAP) Pulse Ox O2 O2 Flow FiO2 Time Delivery Rate 11/11/18 98.6 81 18 136/62 97 Room Air 14:52 (86) Results Result Diagram: 11/11/18 0511/11/18 05 Results 24hrs Laboratory Tests Test 11/11/18 05:26 11/11/18 17:26 White Blood Count 9.7 # Red Blood Count 4.29 Hemoglobin 8.4 L Hematocrit 27.9 L Mean Corpuscular Volume 65.0 L Mean Corpuscular Hemoglobin 19.6 L Mean Corpuscular Hemoglobin Concent 30.1 L Red Cell Distribution Width 16.0 H Platelet Count 322 Mean Platelet Volume 10.4 Immature Granulocytes % 0.300 Neutrophils % 72.7 Lymphocytes % 18.9 Monocytes % 6.5 Eosinophils % 1.2 Basophils % 0.4 Nucleated Red Blood Cells % 0.0 Immature Granulocytes # 0.030 Neutrophils # 7.0 Lymphocytes # 1.8 Monocytes # 0.6 Eosinophils # 0.1 Basophils # 0.0 Nucleated Red Blood Cells # 0.0 Sodium Level 138 Potassium Level 5.4 H Chloride Level 105 Carbon Dioxide Level 22 Anion Gap 11 Blood Urea Nitrogen 26 H Creatinine 0.98 Est Glomerular Filtrat Rate mL/min 58 L Glucose Level 220 Calcium Level 10.4 H Total Bilirubin 0.2 Direct Bilirubin 0.00 Indirect Bilirubin 0.2 Aspartate Amino Transf (AST/SGOT) 19 Alanine Aminotransferase (ALT/SGPT) 17 Alkaline Phosphatase 170 H Troponin I < 0.012 B-Type Natriuretic Peptide 340 H Total Protein 8.0 Albumin 4.4 Globulin 3.60 H Albumin/Globulin Ratio 1.22 Bedside Glucose 306 H Medications Medication Current Medications IV Flush (NS 3 ml) 3 ml PER PROTOCOL IV ; Start 11/11/18 at 07:00 Ondansetron HCl (Zofran Inj) 4 mg Q6H PRN IV NAUSEA/VOMITING; Start 11/11/18 at 07:00 Acetaminophen (Tylenol Tab) 650 mg Q6H PRN PO .PAIN 1-3 OR TEMP; Start 11/11/18 at 07:00 Acetaminophen/ Hydrocodone Bitart ([place] (5/325)) 1 tab Q6H PRN PO .MOD PAIN 4- 6; Start 11/11/18 at 07:00 Docusate Sodium (Colace) 100 mg Q12H PRN PO .CONSTIPATION; Start 11/11/18 at 07:00 Bisacodyl (Dulcolax) 5 mg DAILY PRN PO .CONSTIPATION; Start 11/11/18 at 07:00 Vancomycin HCl (Vanco Iv Per Pharmacy) VANCOMYCIN PER PHARMACY PER PROTOCOL XX ; Start 11/11/18 at 07:00 Insulin Glargine (Lantus) 40 units QHS SC ; Start 11/11/18 at 21:00 Pantoprazole (Protonix Tab) 40 mg DAILY@06 PO ; Start 11/12/18 at 06:00 Miscellaneous Information 1 ea NOTE XX ; Start 11/11/18 at 08:00 Glucose (Glutose) 15 gm Q15M PRN PO DECREASED GLUCOSE; Start 11/11/18 at 08:00 Glucose (Glutose) 22.5 gm Q15M PRN PO DECREASED GLUCOSE; Start 11/11/18 at 08:00 Dextrose (D50w Syringe) 25 ml Q15M PRN IV DECREASED GLUCOSE; Start 11/11/18 at 08:00 Dextrose (D50w Syringe) 50 ml Q15M PRN IV DECREASED GLUCOSE; Start 11/11/18 at 08:00 Glucagon (Glucagen) 1 mg Q15M PRN IM DECREASED GLUCOSE; Start 11/11/18 at 08:00 Glucose (Glutose) 15 gm Q15M PRN BUCCAL DECREASED GLUCOSE; Start 11/11/18 at 08:00 Vancomycin HCl 100 ml @ 100 mls/hr Q12H IVPB ; Start 11/11/18 at 18:00 Levofloxacin/ Dextrose 150 ml @ 100 mls/hr Q24H IVPB Last administered on 11/11/18at 15:23; Admin Dose 100 MLS/HR; Start 11/11/18 at 14:00 Diagnostic Test (Pha) (Accu-Chek) 1 ea 02 XX ; Start 11/12/18 at 02:00 Insulin Aspart (Novolog Insulin Pen) 7 unit WITH MEALS SC ; Start 11/11/18 at 17:35 Insulin Aspart (Novolog Insulin Pen) NOVOLOG *MILD* ALGORITHM WITH MEALS BEDTIME SC ; Start 11/11/18 at 18:05 Lisinopril (Zestril) 10 mg BID PO ; Start 11/11/18 at 21:00 Hydralazine HCl (Apresoline) 50 mg BID PO ; Start 11/11/18 at 21:00 Enoxaparin Sodium (Lovenox) 40 mg DAILY SC ; Start 11/12/18 at 09:00 MEENU PATRICK DPM Nov 11, 2018 17:32
--- NOTE | 2018-11-11 17:37 | CONS ---
DATE OF ADMISSION: 11/11/2018 DATE OF CONSULTATION: 11/11/2018 TYPE OF CONSULTATION: Infectious Disease. REASON FOR CONSULTATION: Antibiotic management. HISTORY OF PRESENT ILLNESS: Sharee Lazcano is a 58-year-old female with a number of proble ms including hypertension and diabetes, who presents with a left foot wound. She recently had a proc edure done on her left foot by podiatry and the stitches were all taken out. However, the wound open ed and there is yellow fluid coming from the wound. She has no fever. She does have nausea and vomi ting. She has foot pain as well. Her past problems include as noted. 1. Hypertension. 2. Diabetes. 3. Hyperlipidemia. 4. Surgery on her left foot x2. Her right foot x1. FAMILY HISTORY: Noncontributory. SOCIAL HISTORY: She does not smoke, drink or abuse drugs. ALLERGIES: NONE TO PENICILLIN, SULFA OR FOODS. MEDICATIONS: Per chart. REVIEW OF SYSTEMS: As per HPI. PHYSICAL EXAMINATION: GENERAL: The patient is a well-developed, well-nourished female, who is alert, responsive, in no acu te distress. VITAL SIGNS: Stable. She is afebrile. SKIN: Without generalized rash. HEENT: Within normal limits. NECK: Supple. LYMPH NODES: None palpable. CHEST: Decreased breath sounds at the bases. HEART: Without murmur or gallop. ABDOMEN: Soft, nontender, without organosplenomegaly or masses. EXTREMITIES: Without cyanosis, clubbing, or edema. She has an open wound on the medial aspect of he r left foot with drainage, which is foul smelling. There is a dry wound in the left heel. RECTAL AND GENITAL: Deferred. NEUROLOGIC EVALUATION: No focal neurological abnormality. ANCILLARY LABORATORY DATA: On admission, white count 9.7 with 73% neutrophils, H and H of 8.4 and 27 .9, platelet count 322,000. BUN and creatinine 26/0.98, with a glucose of 220 random. The patient w as started on vancomycin and Zosyn, also on Levaquin. Chest x-ray shows no acute cardiopulmonary disease. X-ray of the foot, soft tissue swelling at the b ase of the great toe and throughout the mid foot with associated postsurgical changes and amputations , which include a second and third digits of the left foot being amputated at the base of the 2nd pro ximal phalanx and the distal third metatarsal. Postsurgical changes versus bony remodeling at the la teral aspect of the distal first metatarsal. There is generalized soft tissue swelling at the base o f the great toe and throughout the mid foot. No soft tissue gas or evidence of foreign body. No def inite radiographic evidence of osteomyelitis. The patient was started on vancomycin as noted before, and is also on Levaquin. She had previously b een on Zosyn as well. She has a left draining diabetic foot ulcer. Podiatry consult was called with Dr. Uribe. We will continue her on her current regimen. I will dictate my findings to the hospital ist and to Dr. Uribe. Dictated By: SALEEM CRUZ MD, JD/NTS Conf#: [id number] DID#: [id number] CC: ANABELLE ZHANG MD;*EndCC*
[2018-11-11] MEDS: INSULIN ASPART [NOVOLOG] 3 ML PEN SC SCH ×3 (18:06→21:48)
[2018-11-11] MEDS: VANCOMYCIN 500 MG (PMX) 100 ML IVPB SCH (18:46)
--- NOTE | 2018-11-11 18:50 | PN ---
DATE: 11/11/2018 HISTORY OF PRESENT ILLNESS: This is a patient that had debridement of osteomyelitic bone of the proximal phalanx and head of the 1st metatarsal approximately 2 weeks ago. She was admitted through the ER today with nausea. She she is on IV antibiotics and bedrest. She is a diabetic who has a history of previous amputations of the left foot. PAST MEDICAL HISTORY: Diabetes with neuropathy, previous ulcerations, previous chronic osteomyelitis. PHYSICAL EXAMINATION: VASCULAR: A +2/4 for dorsalis pedis and posterior tibial pulses bilaterally. NEUROLOGIC: Neuropathic to the metatarsophalangeal joint regions bilaterally confirmed with 5.07 monofilament. DERMATOLOGIC: There is approximately a 2 x 2 ulceration of the medial aspect of the left foot 1st metatarsophalangeal joint region. Allograft covering ulceration on calcaneal region. There is local erythema, but no ascending cellulitis noted from forefoot ulceration. There is the ability to probe to bone. There is no odor and minimal drainage. IMPRESSION: Osteomyelitis, 1st metatarsal of the foot. PLAN: Continue bed rest with IV antibiotics. We need to get her labs and her diabetes under better control. Continue with daily local wound care with Betadine and dry dressing over the left foot ulceration. Dry dressing only for resolving ulceration of the calcaneal region. Possible debridement of the osteomyelitic bone of the 1st metatarsal while she is in-house once stabilized. Authorization for Wound Vac. Dictated By: MEENU PATRICK MD RS/NTS Conf#: [id number] DID#: [id number] CC: SALEEM CRUZ MD; ANABELLE ZHANG MD;*EndCC* MTDD
[2018-11-11 20:05] VITALS: BP 136/63; PULSE 74; RESP 18
[2018-11-11] MEDS: LISINOPRIL 10 MG TAB PO SCH (20:56)
[2018-11-11] MEDS ORDERED: INSULIN GLARGINE [LANTus] (100 UNITS/ML) SYG SC SCH (21:00)
[2018-11-11] MEDS ORDERED: INSULIN ASPART [NOVOLOG] 3 ML PEN SC ONE (23:30)
[2018-11-11] MEDS ORDERED: ACCU-CHEK XX ONE (23:30)
[2018-11-12] MEDS: ACCU-CHEK XX SCH (02:00)
[2018-11-12 02:10] VITALS: BP 108/53; PULSE 73; RESP 18
[2018-11-12] MEDS: PANTOPRAZOLE (EC) 40 MG TAB PO SCH (06:14)
[2018-11-12] MEDS: VANCOMYCIN 500 MG (PMX) 100 ML IVPB SCH (06:15)
[2018-11-12] MEDS: INSULIN ASPART [NOVOLOG] 3 ML PEN SC SCH ×7 (08:00→20:56)
[2018-11-12 08:06] VITALS: BP 108/55; PULSE 65; RESP 18
[2018-11-12] MEDS: LISINOPRIL 10 MG TAB PO SCH ×2 (08:44→21:00)
[2018-11-12] MEDS ORDERED: ENOXAPARIN 40 MG/0.4 ML SYG SC SCH (09:00)
[2018-11-12] MEDS: NA POLYST SULFON 15 GM/60 ML BTL PO ONE ×2 (12:19→12:42)
[2018-11-12] MEDS ORDERED: SOD CHLORIDE 0.9% 250 ML IV* ONE (13:37)
--- NOTE | 2018-11-12 13:45 | PN ---
Date/Time of Note Date/Time of Note DATE: 11/12/18 TIME: 13:33 Assessment/Plan VTE Prophylaxis Risk score (from Ns)>0 risk: 2 SCD applied (from [facility] [place]): Yes Pharmacological prophylaxis: NA/contraindicated Pharm contraindication: anticoag not tolerated Lines/Catheters IV C[facility]ter Type (from [facility]): Saline Lock Assessment/Plan Hospital Course Change sUBJECTIVE: no acute distress OBJECTIVE: Vital signs-see below PHYSICAL EXAM: Constitutional: Well-developed, well-nourished not in acute distress. HEENT: Head atraumatic and normocephalic. Eyes: Extraocular muscles intact. Anicteric sclerae. Pupils equal bilaterally, reactive to light. NECK: Supple without lymph node. CHEST: Clear and good breath sounds equally. No wheezing. No rhonchi. HEART: S1, S2. Regular rate and rhythm. ABDOMEN: Soft with no rebound tenderness. Bowel sounds were present. EXTREMITIES: Left foot covered with Kerlix dressing, clean/dry/intact. No oozing noted outside. Full range of motion in all the extremities. No cyanosis, clubbing or edema. NEUROLOGIC: Alert and oriented x3. No focal deficit. No sensory deficit. PSYCHOSOCIAL: In a good mood. No signs of depression. INTEGUMENTARY: Moist mucous membranes. Good skin turgor, intact. ASSESSMENT AND PLAN: 58-year-old female with diabetes, hypertension, diabetic foot ulcers with history of multiple toe amputations, osteomyelitis, who also had a recent procedure done on her left foot with sutures removed last week, came back with wound remained open and started draining yellow secretions. 1. Left foot draining diabetic ulcer w/OM -management per podiatry=>Plan for wound Vac application w/ possible debridement of the osteomyelitic bone of the 1st metatarsal. -Cont.wound care as instructed per podiatry -CS growing polymicrobials-abx per ID-growing GNR/Enterococcus 2. Acute on Chronic anemia with inflammation -HH dropped-give 1 PRBC -Obtain iron panel, stool ob. Hold Lovenox for now. -1 Dose IV iron for now 3. Mild acute kidney injury, likely secondary to hemodynamics versus up titration of ben inhibitors. -Currently blood pressure stable, as such I will change a centimeters back to 5 mg. Give 500 mm normal saline bolus. -Continue monitoring renal function. -Renal us 4.Hyperkalemia in light of CHRISSY -Shaina exalate -monitor. 5. Essential hypertension. -now stable. -Decrease ACEI dose back 2/2 CHRISSY 6.Diabetic neuropathy cont. gabapentin 7.Type 2 diabetes,poorly controlled -Stable glycemic trends..Cont. Accu-Cheks/lantus/pre-meal insulin and sliding scale insulin. -carb-controlled controlled diet. 8.Vitamin D deficiency. -on supplementation. 9.Triglyceridemia -Fish oil sup. LDL stable DVT prophylaxis:SCDs PUD prophylaxis: PPI disp;cont.wound care per podiatry.cont.antimicrobials. Await for cultures final. Patient was seen in collaboration with Dr. Junior. Result Diagram: 11/12/18 0552 11/12/18 0552 Results 24hrs Laboratory Tests Test 11/11/18 17:26 11/11/18 21:45 11/12/18 02:11 11/12/18 05:52 Bedside Glucose 306 H 355 H 129 White Blood Count 7.8 Red Blood Count 3.85 L Hemoglobin 7.6 L Hematocrit 25.4 L Mean Corpuscular 66.0 L Volume Mean Corpuscular 19.7 L Hemoglobin Mean Corpuscular 29.9 L Hemoglobin Concent Red Cell 15.9 H Distribution Width Platelet Count 314 Mean Platelet Volume 10.2 Immature 0.400 Granulocytes % Neutrophils % 64.0 Lymphocytes % 24.5 Monocytes % 8.8 Eosinophils % 1.8 Basophils % 0.5 Nucleated Red Blood 0.0 Cells % Immature 0.030 Granulocytes # Neutrophils # 5.0 Lymphocytes # 1.9 Monocytes # 0.7 Eosinophils # 0.1 Basophils # 0.0 Nucleated Red Blood 0.0 Cells # Sodium Level 138 Potassium Level 5.4 H Chloride Level 105 Carbon Dioxide Level 26 Anion Gap 7 Blood Urea Nitrogen 21 H Creatinine 1.22 H Est Glomerular 45 L Filtrat Rate mL/min Glucose Level 134 # Hemoglobin A1c 9.4 H Calcium Level 9.9 Magnesium Level 2.0 Total Bilirubin 0.2 Direct Bilirubin 0.00 Indirect Bilirubin 0.2 Aspartate Amino 14 L Transf (AST/SGOT) Alanine 14 Aminotransferase (AL T/SGPT) Alkaline Phosphatase 123 H Total Protein 6.4 # Albumin 3.5 Globulin 2.90 Albumin/Globulin 1.20 Ratio Triglycerides Level 255 H Cholesterol Level 178 LDL Cholesterol, 95 Calculated HDL Cholesterol 32 L Cholesterol/HDL 5.5 Ratio Test 4/17/19 08:11 11/12/18 12:16 Bedside Glucose 138 119 Exam/Review of Systems Exam Vitals Vital Signs Date Temp Pulse Resp B/P (MAP) Pulse Ox O2 O2 Flow FiO2 Time Delivery Rate 11/12/18 98.6 65 18 108/55 96 Room Air 08:06 (72) Intake and Output 11/11/18 11/11/18 11/12/18 1515:00 23:00 07:00 IntakeIntake Total 450 ml 970 ml 240 ml BalanceBalance 450 ml 970 ml 240 ml Results Results 24hrs Laboratory Tests Test 11/11/18 17:26 11/11/18 21:45 11/12/18 02:11 11/12/18 05:52 Bedside Glucose 306 H 355 H 129 White Blood Count 7.8 Red Blood Count 3.85 L Hemoglobin 7.6 L Hematocrit 25.4 L Mean Corpuscular 66.0 L Volume Mean Corpuscular 19.7 L Hemoglobin Mean Corpuscular 29.9 L Hemoglobin Concent Red Cell 15.9 H Distribution Width Platelet Count 314 Mean Platelet Volume 10.2 Immature 0.400 Granulocytes % Neutrophils % 64.0 Lymphocytes % 24.5 Monocytes % 8.8 Eosinophils % 1.8 Basophils % 0.5 Nucleated Red Blood 0.0 Cells % Immature 0.030 Granulocytes # Neutrophils # 5.0 Lymphocytes # 1.9 Monocytes # 0.7 Eosinophils # 0.1 Basophils # 0.0 Nucleated Red Blood 0.0 Cells # Sodium Level 138 Potassium Level 5.4 H Chloride Level 105 Carbon Dioxide Level 26 Anion Gap 7 Blood Urea Nitrogen 21 H Creatinine 1.22 H Est Glomerular 45 L Filtrat Rate mL/min Glucose Level 134 # Hemoglobin A1c 9.4 H Calcium Level 9.9 Magnesium Level 2.0 Total Bilirubin 0.2 Direct Bilirubin 0.00 Indirect Bilirubin 0.2 Aspartate Amino 14 L Transf (AST/SGOT) Alanine 14 Aminotransferase (AL T/SGPT) Alkaline Phosphatase 123 H Total Protein 6.4 # Albumin 3.5 Globulin 2.90 Albumin/Globulin 1.20 Ratio Triglycerides Level 255 H Cholesterol Level 178 LDL Cholesterol, 95 Calculated HDL Cholesterol 32 L Cholesterol/HDL 5.5 Ratio Test 11/12/18 08:11 11/12/18 12:16 Bedside Glucose 138 119 Medications Medication Current Medications IV Flush (NS 3 ml) 3 ml PER PROTOCOL IV ; Start 11/11/18 at 07:00 Ondansetron HCl (Zofran Inj) 4 mg Q6H PRN IV NAUSEA/VOMITING; Start 11/11/18 at 07:00 Acetaminophen (Tylenol Tab) 650 mg Q6H PRN PO .PAIN 1-3 OR TEMP; Start 11/11/18 at 07:00 Acetaminophen/ Hydrocodone Bitart ([place] (5/325)) 1 tab Q6H PRN PO .MOD PAIN 4- 6; Start 11/11/18 at 07:00 Docusate Sodium (Colace) 100 mg Q12H PRN PO .CONSTIPATION; Start 11/11/18 at 07:00 Bisacodyl (Dulcolax) 5 mg DAILY PRN PO .CONSTIPATION; Start 11/11/18 at 07:00 Vancomycin HCl (Vanco Iv Per Pharmacy) VANCOMYCIN PER PHARMACY PER PROTOCOL XX ; Start 11/11/18 at 07:00 Pantoprazole (Protonix Tab) 40 mg DAILY@06 PO Last administered on 11/12/18at 06:14; Admin Dose 40 MG; Start 11/12/18 at 06:00 Miscellaneous Information 1 ea NOTE XX ; Start 11/11/18 at 08:00 Glucose (Glutose) 15 gm Q15M PRN PO DECREASED GLUCOSE; Start 11/11/18 at 08:00 Glucose (Glutose) 22.5 gm Q15M PRN PO DECREASED GLUCOSE; Start 11/11/18 at 08:00 Dextrose (D50w Syringe) 25 ml Q15M PRN IV DECREASED GLUCOSE; Start 11/11/18 at 08:00 Dextrose (D50w Syringe) 50 ml Q15M PRN IV DECREASED GLUCOSE; Start 11/11/18 at 08:00 Glucagon (Glucagen) 1 mg Q15M PRN IM DECREASED GLUCOSE; Start 11/11/18 at 08:00 Glucose (Glutose) 15 gm Q15M PRN BUCCAL DECREASED GLUCOSE; Start 11/11/18 at 08:00 Vancomycin HCl 100 ml @ 100 mls/hr Q12H IVPB Last administered on 11/12/18at 06:15; Admin Dose 100 MLS/HR; Start 11/11/18 at 18:00 Levofloxacin/ Dextrose 150 ml @ 100 mls/hr Q24H IVPB Last administered on 11/11/18at 15:23; Admin Dose 100 MLS/HR; Start 11/11/18 at 14:00 Diagnostic Test (Pha) (Accu-Chek) 1 ea 02 XX ; Start 11/12/18 at 02:00 Insulin Aspart (Novolog Insulin Pen) 7 unit WITH MEALS SC Last administered on 11/12/18at 12:24; Admin Dose 7 UNIT; Start 11/11/18 at 17:35 Insulin Aspart (Novolog Insulin Pen) NOVOLOG *MILD* ALGORITHM WITH MEALS BEDTIME SC Last administered on 11/11/18at 21:48; Admin Dose 4 UNIT; Start 11/11/18 at 18:05 Lisinopril (Zestril) 10 mg BID PO Last administered on 11/12/18 08:44; Admin Dose 10 MG; Start 11/11/18 at 21:00 Hydralazine HCl (Apresoline) 50 mg BID PO Last administered on 11/11/18at 20:56; Admin Dose 50 MG; Start 11/11/18 at 21:00 Enoxaparin Sodium (Lovenox) 40 mg DAILY SC Last administered on 11/12/18at 08:44; Admin Dose 40 MG; Start 11/12/18 at 09:00 Insulin Glargine (Lantus) 40 units QHS SC ; Start 11/11/18 at 21:55 FLORENCE SAUNDERS NP Nov 12, 2018 13:44
[2018-11-12] MEDS ORDERED: SOD CHLORIDE 0.9% 500 ML IV ONE (14:00)
[2018-11-12] MEDS: LEVOFLOXACIN 750MG/D5W (PMX) 150 ML IVPB SCH (14:02)
[2018-11-12] MEDS ORDERED: SOD FERRIC GLUC COMPLX 125 MG in SOD CHLORIDE 0.9% 100 ML IVPB ONE (15:00)
[2018-11-12 15:14] VITALS: BP 105/52; PULSE 68; RESP 18
--- NOTE | 2018-11-12 15:26 | CONS ---
Assessment/Plan Assessment/Plan Hospital Course (Demo Recall) No acute changes overnight patient is alert complaining of diarrhea looks comfortable no fevers overnight. WBC 7.8 no shift no bands BUN 21 creatinine 1.22 Microbiology: Blood culture since admission grew gram-positive cocci in clusters, 1 set, left foot wound culture growing enterococcus and gram-negative rods. Antimicrobials: Vancomycin, Levaquin Physical examination: This is well-developed fragile elderly woman who is awake in no distress. Head atraumatic normocephalic sclera nonicteric vehicle mucosa dry neck is supple chest rise symmetrical breath sounds diminished bases. Hear t: S1-S2. Abdomen soft bowel sounds present. Extremities with left foot dressing intact Assessment: 1. Left diabetic ulceration with osteomyelitis 2. Diabetes 3. Diarrhea, rule out C. difficile 4. Anemia 5. Peripheral arterial disease 6. Bacteremia Plan: Patient is stable, podiatry on case, were going to send stool for C. difficile and add Flagyl, f/u final cx. Possible debridement per podiatry note Consultation Date/Type/Reason Admit Date/Time Nov 11, 2018 at 06:24 Initial Consult Date Type of Consult id Date/Time of Note DATE: 11/12/18 TIME: 15:26 Exam/Review of Systems Exam Vitals Vital Signs Date Temp Pulse Resp B/P (MAP) Pulse Ox O2 O2 Flow FiO2 Time Delivery Rate 11/12/18 98.8 68 18 105/52 97 Room Air 15:14 (69) Intake and Output 11/11/18 11/11/18 11/12/18 1515:00 23:00 07:00 IntakeIntake Total 450 ml 970 ml 240 ml BalanceBalance 450 ml 970 ml 240 ml Results Result Diagram: 11/12/18 0552 11/12/18 0552 Results 24hrs Laboratory Tests Test 11/11/18 17:26 11/11/18 21:45 11/12/18 02:11 11/12/18 05:50 Bedside Glucose 306 H 355 H 129 Iron Level 57 Total Iron Binding 238 L Capacity Percent Iron 24 Saturation Test 11/12/18 05:52 11/12/18 08:11 11/12/18 12:16 White Blood Count 7.8 Red Blood Count 3.85 L Hemoglobin 7.6 L Hematocrit 25.4 L Mean Corpuscular 66.0 L Volume Mean Corpuscular 19.7 L Hemoglobin Mean Corpuscular 29.9 L Hemoglobin Concent Red Cell 15.9 H Distribution Width Platelet Count 314 Mean Platelet Volume 10.2 Immature 0.400 Granulocytes % Neutrophils % 64.0 Lymphocytes % 24.5 Monocytes % 8.8 Eosinophils % 1.8 Basophils % 0.5 Nucleated Red Blood 0.0 Cells % Immature 0.030 Granulocytes # Neutrophils # 5.0 Lymphocytes # 1.9 Monocytes # 0.7 Eosinophils # 0.1 Basophils # 0.0 Nucleated Red Blood 0.0 Cells # Sodium Level 138 Potassium Level 5.4 H Chloride Level 105 Carbon Dioxide Level 26 Anion Gap 7 Blood Urea Nitrogen 21 H Creatinine 1.22 H Est Glomerular 45 L Filtrat Rate mL/min Glucose Level 134 # Hemoglobin A1c 9.4 H Calcium Level 9.9 Magnesium Level 2.0 Total Bilirubin 0.2 Direct Bilirubin 0.00 Indirect Bilirubin 0.2 Aspartate Amino 14 L Transf (AST/SGOT) Alanine 14 Aminotransferase (AL T/SGPT) Alkaline Phosphatase 123 H Total Protein 6.4 # Albumin 3.5 Globulin 2.90 Albumin/Globulin 1.20 Ratio Triglycerides Level 255 H Cholesterol Level 178 LDL Cholesterol, 95 Calculated HDL Cholesterol 32 L Cholesterol/HDL 5.5 Ratio Bedside Glucose 138 119 Medications Medication Current Medications IV Flush (NS 3 ml) 3 ml PER PROTOCOL IV ; Start 11/11/18 at 07:00 Ondansetron HCl (Zofran Inj) 4 mg Q6H PRN IV NAUSEA/VOMITING; Start 11/11/18 at 07:00 Acetaminophen (Tylenol Tab) 650 mg Q6H PRN PO .PAIN 1-3 OR TEMP; Start 11/11/18 at 07:00 Acetaminophen/ Hydrocodone Bitart ([place] (5/325)) 1 tab Q6H PRN PO .MOD PAIN 4- 6; Start 11/11/18 at 07:00 Docusate Sodium (Colace) 100 mg Q12H PRN PO .CONSTIPATION; Start 11/11/18 at 07:00 Bisacodyl (Dulcolax) 5 mg DAILY PRN PO .CONSTIPATION; Start 11/11/18 at 07:00 Vancomycin HCl (Vanco Iv Per Pharmacy) VANCOMYCIN PER PHARMACY PER PROTOCOL XX ; Start 11/11/18 at 07:00 Pantoprazole (Protonix Tab) 40 mg DAILY@06 PO Last administered on 11/12/18at 06:14; Admin Dose 40 MG; Start 11/12/18 at 06:00 Miscellaneous Information 1 ea NOTE XX ; Start 11/11/18 at 08:00 Glucose (Glutose) 15 gm Q15M PRN PO DECREASED GLUCOSE; Start 11/11/18 at 08:00 Glucose (Glutose) 22.5 gm Q15M PRN PO DECREASED GLUCOSE; Start 11/11/18 at 08:00 Dextrose (D50w Syringe) 25 ml Q15M PRN IV DECREASED GLUCOSE; Start 11/11/18 at 08:00 Dextrose (D50w Syringe) 50 ml Q15M PRN IV DECREASED GLUCOSE; Start 11/11/18 at 08:00 Glucagon (Glucagen) 1 mg Q15M PRN IM DECREASED GLUCOSE; Start 11/11/18 at 08:00 Glucose (Glutose) 15 gm Q15M PRN BUCCAL DECREASED GLUCOSE; Start 11/11/18 at 08:00 Vancomycin HCl 100 ml @ 100 mls/hr Q12H IVPB Last administered on 11/12/18at 06:15; Admin Dose 100 MLS/HR; Start 11/11/18 at 18:00 Levofloxacin/ Dextrose 150 ml @ 100 mls/hr Q24H IVPB Last administered on 11/12/18at 14:02; Admin Dose 100 MLS/HR; Start 11/11/18 at 14:00 Diagnostic Test (Pha) (Accu-Chek) 1 ea 02 XX ; Start 11/12/18 at 02:00 Insulin Aspart (Novolog Insulin Pen) 7 unit WITH MEALS SC Last administered on 11/12/18at 12:24; Admin Dose 7 UNIT; Start 11/11/18 at 17:35 Insulin Aspart (Novolog Insulin Pen) NOVOLOG *MILD* ALGORITHM WITH MEALS BEDTIME SC Last administered on 11/11/18at 21:48; Admin Dose 4 UNIT; Start 10/27 01/14 at 18:05 Hydralazine HCl (Apresoline) 50 mg BID PO Last administered on 11/11/18at 20:56; Admin Dose 50 MG; Start 11/11/18 at 21:00 Enoxaparin Sodium (Lovenox) 40 mg DAILY SC Last administered on 11/12/18at 08:44; Admin Dose 40 MG; Start 11/12/18 at 09:00; Status Hold Insulin Glargine (Lantus) 40 units QHS SC ; Start 11/11/18 at 21:55 Lisinopril (Zestril) 5 mg BID PO ; Start 11/12/18 at 21:00 Ferric Sodium Gluconate Complex 125 mg/Sodium Chloride 100 ml @ 100 mls/hr ONCE ONCE IVPB ; Start 11/12/18 at 15:00; Stop 11/12/18 at 15:59 VIVIENNE COOL NP Nov 12, 2018 15:26
[2018-11-12 20:14] VITALS: BP 172/73; PULSE 76; RESP 18
[2018-11-12] MEDS ORDERED: metroNIDAZOLE 500 MG TAB ONE (20:44)
[2018-11-12] MEDS: INSULIN GLARGINE [LANTus] (100 UNITS/ML) SYG SC SCH (20:57)
[2018-11-12] MEDS: metroNIDAZOLE 500 MG TAB PO SCH (21:00)
[2018-11-13 01:59] VITALS: BP 162/68; PULSE 66; RESP 20
[2018-11-13] MEDS: ACCU-CHEK XX SCH (02:51)
[2018-11-13] MEDS: VANCOMYCIN 500 MG (PMX) 100 ML IVPB SCH ×2 (03:06→15:43)
[2018-11-13] MEDS: metroNIDAZOLE 500 MG TAB PO SCH ×3 (05:23→21:37)
[2018-11-13] MEDS: PANTOPRAZOLE (EC) 40 MG TAB PO SCH (05:23)
[2018-11-13 08:00] VITALS: BP 133/60; PULSE 70; RESP 20
[2018-11-13] MEDS: INSULIN ASPART [NOVOLOG] 3 ML PEN SC SCH ×7 (08:00→20:34)
[2018-11-13] MEDS: LISINOPRIL 10 MG TAB PO SCH ×2 (08:07→20:41)
--- NOTE | 2018-11-13 11:55 | PN ---
Date/Time of Note Date/Time of Note DATE: 11/13/18 TIME: 11:50 Assessment/Plan VTE Prophylaxis Risk score (from Ns)>0 risk: 2 SCD applied (from Ns): No SCD contraindicated: other Pharmacological prophylaxis: LMWH Lines/Catheters IV [facility] Type [facility]from [facility] Saline Lock Urinary Cath still in place: No Assessment/Plan Hospital Course SUBJECTIVE: no acute distress OBJECTIVE: Vital signs-see below PHYSICAL EXAM: Constitutional: Well-developed, well-nourished not in acute distress. HEENT: Head atraumatic and normocephalic. Eyes: Extraocular muscles intact. Anicteric sclerae. Pupils equal bilaterally, reactive to light. NECK: Supple without lymph node. CHEST: Clear and good breath sounds equally. No wheezing. No rhonchi. HEART: S1, S2. Regular rate and rhythm. ABDOMEN: Soft with no rebound tenderness. Bowel sounds were present. EXTREMITIES: Left foot covered with Kerlix dressing, clean/dry/intact. No oozing noted outside. Full range of motion in all the extremities. No cyanosis, clubbing or edema. NEUROLOGIC: Alert and oriented x3. No focal deficit. No sensory deficit. PSYCHOSOCIAL: In a good mood. No signs of depression. INTEGUMENTARY: Moist mucous membranes. Good skin turgor, intact. ASSESSMENT AND PLAN: 58-year-old female with diabetes, hypertension, diabetic foot ulcers with history of multiple toe amputations, osteomyelitis, who also had a recent procedure done on her left foot with sutures removed last week, came back with wound remained open and started draining yellow secretions. 1. Left foot draining diabetic ulcer w/OM -management per podiatry=>On wound vac therapy w/ possible debridement of the osteomyelitic bone of the 1st metatarsal. -Cont.wound care as instructed per podiatry -CS growing polymicrobials-abx per ID 2. Acute on Chronic anemia with inflammation -s/p1 PRBC ,now stable HH -Monitor 3. Mild acute kidney injury, likely secondary to hemodynamics -resolved w/fluids -tolerates ACEI 4.Hyperkalemia in light of CHRISSY -S/P Shaina exalate-Resolved 5. Essential hypertension. -now stable. -cont.low dose ACEi 6.Diabetic neuropathy cont. gabapentin 7.Type 2 diabetes,poorly controlled -Stable glycemic trends..Cont. Accu-Cheks/lantus/pre-meal insulin and sliding scale insulin. -carb-controlled controlled diet. 8.Vitamin D deficiency. -on supplementation. 9.Triglyceridemia -Fish oil sup. LDL stable DVT prophylaxis:SCDs PUD prophylaxis: PPI disp;cont.wound care per podiatry.cont.antimicrobials. f/u podiatry recs Patient was seen in collaboration with Dr. Junior. Result Diagram: 11/13/1815 11/13/1815 Results 24hrs Laboratory Tests Test 11/12/18 12:16 11/12/18 14:40 11/12/18 17:18 11/12/18 20:53 Bedside Glucose 119 162 292 H Stool Occult NEGATIVE Blood Test 11/13/18 02:40 11/13/18 05:15 11/13/18 08:05 11/13/18 08:58 Bedside Glucose 136 78 White Blood Count 5.6 # Red Blood Count 4.25 Hemoglobin 8.8 L Hematocrit 28.6 L Mean Corpuscular 67.3 L Volume Mean Corpuscular 20.7 L Hemoglobin Mean Corpuscular 30.8 L Hemoglobin Concen t Red Cell 18.6 H Distribution Width Platelet Count 304 Mean Platelet 10.2 Volume Immature 0.200 Granulocytes % Neutrophils % 52.8 Lymphocytes % 34.6 Monocytes % 9.0 Eosinophils % 2.3 Basophils % 1.1 Nucleated Red 0.0 Blood Cells % Immature 0.010 Granulocytes # Neutrophils # 3.0 Lymphocytes # 2.0 Monocytes # 0.5 Eosinophils # 0.1 Basophils # 0.1 Nucleated Red 0.0 Blood Cells # Sodium Level 141 Potassium Level 4.2 Chloride Level 110 Carbon Dioxide 23 Level Anion Gap 8 Blood Urea 16 Nitrogen Creatinine 0.93 Est Glomerular > 60 Filtrat Rate mL/min Glucose Level 108 Calcium Level 9.6 Lab Scanned BLOOD TRANSFUSIO Report N Exam/Review of Systems Exam Vitals Vital Signs Date Temp Pulse Resp B/P (MAP) Pulse Ox O2 O2 Flow FiO2 Time Delivery Rate 11/13/18 98.6 70 20 133/60 96 08:00 (84) 11/12/18 Room Air 15:14 Intake and Output 11/12/18 11/12/18 11/13/18 1515:00 23:00 07:00 IntakeIntake Total 340 ml 1110 ml 100 ml BalanceBalance 340 ml 1110 ml 100 ml Results Results 24hrs Laboratory Tests Test 11/12/18 12:16 11/12/18 14:40 11/12/18 17:18 11/12/18 20:53 Bedside Glucose 119 162 292 H Stool Occult NEGATIVE Blood Test 11/13/18 02:40 11/13/18 05:15 11/13/18 08:05 11/13/18 08:58 Bedside Glucose 136 78 White Blood Count 5.6 # Red Blood Count 4.25 Hemoglobin 8.8 L Hematocrit 28.6 L Mean Corpuscular 67.3 L Volume Mean Corpuscular 20.7 L Hemoglobin Mean Corpuscular 30.8 L Hemoglobin Concen t Red Cell 18.6 H Distribution Width Platelet Count 304 Mean Platelet 10.2 Volume Immature 0.200 Granulocytes % Neutrophils % 52.8 Lymphocytes % 34.6 Monocytes % 9.0 Eosinophils % 2.3 Basophils % 1.1 Nucleated Red 0.0 Blood Cells % Immature 0.010 Granulocytes # Neutrophils # 3.0 Lymphocytes # 2.0 Monocytes # 0.5 Eosinophils # 0.1 Basophils # 0.1 Nucleated Red 0.0 Blood Cells # Sodium Level 141 Potassium Level 4.2 Chloride Level 110 Carbon Dioxide 23 Level Anion Gap 8 Blood Urea 16 Nitrogen Creatinine 0.93 Est Glomerular > 60 Filtrat Rate mL/min Glucose Level 108 Calcium Level 9.6 Lab Scanned BLOOD TRANSFUSIO Report N Medications Medication Current Medications IV Flush (NS 3 ml) 3 ml PER PROTOCOL IV ; Start 11/11/18 at 07:00 Ondansetron HCl (Zofran Inj) 4 mg Q6H PRN IV NAUSEA/VOMITING; Start 11/11/18 at 07:00 Acetaminophen (Tylenol Tab) 650 mg Q6H PRN PO .PAIN 1-3 OR TEMP; Start 11/11/18 at 07:00 Acetaminophen/ Hydrocodone Bitart ([place] (5/325)) 1 tab Q6H PRN PO .MOD PAIN 4- 6; Start 11/11/18 at 07:00 Docusate Sodium (Colace) 100 mg Q12H PRN PO .CONSTIPATION; Start 11/11/18 at 07:00 Bisacodyl (Dulcolax) 5 mg DAILY PRN PO .CONSTIPATION; Start 11/11/18 at 07:00 Vancomycin HCl (Vanco Iv Per Pharmacy) VANCOMYCIN PER PHARMACY PER PROTOCOL XX ; Start 11/11/18 at 07:00 Pantoprazole (Protonix Tab) 40 mg DAILY@06 PO Last administered on 11/13/18at 05:23; Admin Dose 40 MG; Start 11/12/18 at 06:00 Miscellaneous Information 1 ea NOTE XX ; Start 11/11/18 at 08:00 Glucose (Glutose) 15 gm Q15M PRN PO DECREASED GLUCOSE; Start 11/11/18 at 08:00 Glucose (Glutose) 22.5 gm Q15M PRN PO DECREASED GLUCOSE; Start 11/11/18 at 08:00 Dextrose (D50w Syringe) 25 ml Q15M PRN IV DECREASED GLUCOSE; Start 11/11/18 at 08:00 Dextrose (D50w Syringe) 50 ml Q15M PRN IV DECREASED GLUCOSE; Start 11/11/18 at 08:00 Glucagon (Glucagen) 1 mg Q15M PRN IM DECREASED GLUCOSE; Start 11/11/18 at 08:00 Glucose (Glutose) 15 gm Q15M PRN BUCCAL DECREASED GLUCOSE; Start 11/11/18 at 08:00 Levofloxacin/ Dextrose 150 ml @ 100 mls/hr Q24H IVPB Last administered on 11/12/18at 14:02; Admin Dose 100 MLS/HR; Start 11/11/18 at 14:00 Diagnostic Test (Pha) (Accu-Chek) 1 ea 02 XX Last administered on 11/13/18at 02:51; Admin Dose 1 EA; Start 11/12/18 at 02:00 Insulin Aspart (Novolog Insulin Pen) 7 unit WITH MEALS SC Last administered on 11/13/18at 08:10; Admin Dose 7 UNIT; Start 11/11/18 at 17:35 Insulin Aspart (Novolog Insulin Pen) NOVOLOG *MILD* ALGORITHM WITH MEALS BEDT JO ANN SC Last administered on 11/12/18at 20:56; Admin Dose 3 UNIT; Start 11/11/18 at 18:05 Hydralazine HCl (Apresoline) 50 mg BID PO Last administered on 11/13/18at 08:07; Admin Dose 50 MG; Start 11/11/18 at 21:00 Enoxaparin Sodium (Lovenox) 40 mg DAILY SC Last administered on 11/12/18at 08:44; Admin Dose 40 MG; Start 11/12/18 at 09:00; Status Hold Insulin Glargine (Lantus) 40 units QHS SC Last administered on 11/12/18at 20:57; Admin Dose 40 UNITS; Start 11/11/18 at 21:55 Lisinopril (Zestril) 5 mg BID PO Last administered on 11/13/18 08:07; Admin Dose 5 MG; Start 11/12/18 at 21:00 Metronidazole (Flagyl) 500 mg Q8 PO Last administered on 11/13/18at 05:23; Admin Dose 500 MG; Start 11/12/18 at 22:00 Vancomycin HCl 100 ml @ 100 mls/hr Q12H IVPB Last administered on 11/13/18 03:06; Admin Dose 100 MLS/HR; Start 11/13/18 at 03:00 Simethicone (Mylicon) 80 mg Q6H PRN PO gas Last administered on 11/13/18at 03:06; Admin Dose 80 MG; Start 11/13/18 at 03:00 Miscellaneous Information (*Rx Drug Level Order Reminder*) 1 0200 ONCE XX ; Start 11/14/18 at 02:00; Stop 11/14/18 at 02:01 FLORENCE SAUNDERS NP Nov 13, 2018 11:55
[2018-11-13] MEDS: LEVOFLOXACIN 750MG/D5W (PMX) 150 ML IVPB SCH (13:53)
[2018-11-13 14:00] VITALS: BP 188/75; PULSE 71; RESP 20
--- NOTE | 2018-11-13 14:06 | CONS ---
Assessment/Plan Assessment/Plan Hospital Course (Demo Recall) Sleeping, looks comfortable, no fevers overnight. WBC today 5.6, no shift no bands BUN 16 creatinine 0.93 Microbiology: Blood culture on admission grew coag negative staph species one set. Wound cultures growing Klebsiella, enterococcus, gram-negative rods Antimicrobials: Vancomycin, Levaquin Flagyl Physical examination: This is well-developed fragile elderly woman who is awake in no distress. Head atraumatic normocephalic sclera nonicteric vehicle mucosa dry neck is supple chest rise symmetrical breath sounds diminished bases. Heart: S1-S2. Abdomen soft bowel sounds present. Extremities with left foot dressing intact Assessment: 1. Left diabetic ulceration with osteomyelitis 2. Diabetes 3. Diarrhea, rule out C. difficile 4. Anemia 5. Peripheral arterial disease 6. Bacteremia, consistent with contaminant Plan: Remains stable, continue antibiotics, follow final cultures, stool for C. difficile, podiatry recommendations Consultation Date/Type/Reason Admit Date/Time Nov 11, 2018 at 06:24 Initial Consult Date Type of Consult id Date/Time of Note DATE: 11/13/18 TIME: 14:05 Exam/Review of Systems Exam Vitals Vital Signs Date Temp Pulse Resp B/P (MAP) Pulse Ox O2 O2 Flow FiO2 Time Delivery Rate 11/13/18 98.6 70 20 133/60 96 08:00 (84) 11/12/18 Room Air 15:14 Intake and Output 11/12/18 11/12/18 11/13/18 1414:59 22:59 06:59 IntakeIntake Total 340 ml 1110 ml 100 ml BalanceBalance 340 ml 1110 ml 100 ml Results Result Diagram: 11/13/18 0515 11/13/18 0515 Results 24hrs Laboratory Tests Test 11/12/18 14:40 11/12/18 17:18 11/12/18 20:53 11/13/18 02:40 Stool Occult NEGATIVE Blood Bedside Glucose 162 292 H 136 Test 11/13/18 05:15 11/13/18 08:05 11/13/18 08:58 11/13/18 12:06 White Blood Count 5.6 # Red Blood Count 4.25 Hemoglobin 8.8 L Hematocrit 28.6 L Mean Corpuscular 67.3 L Volume Mean Corpuscular 20.7 L Hemoglobin Mean Corpuscular 30.8 L Hemoglobin Concen t Red Cell 18.6 H Distribution Width Platelet Count 304 Mean Platelet 10.2 Volume Immature 0.200 Granulocytes % Neutrophils % 52.8 Lymphocytes % 34.6 Monocytes % 9.0 Eosinophils % 2.3 Basophils % 1.1 Nucleated Red 0.0 Blood Cells % Immature 0.010 Granulocytes # Neutrophils # 3.0 Lymphocytes # 2.0 Monocytes # 0.5 Eosinophils # 0.1 Basophils # 0.1 Nucleated Red 0.0 Blood Cells # Sodium Level 141 Potassium Level 4.2 Chloride Level 110 Carbon Dioxide 23 Level Anion Gap 8 Blood Urea 16 Nitrogen Creatinine 0.93 Est Glomerular > 60 Filtrat Rate mL/min Glucose Level 108 Calcium Level 9.6 Bedside Glucose 78 154 Lab Scanned BLOOD TRANSFUSIO Report N Medications Medication Current Medications IV Flush (NS 3 ml) 3 ml PER PROTOCOL IV ; Start 11/11/18 at 07:00 Ondansetron HCl (Zofran Inj) 4 mg Q6H PRN IV NAUSEA/VOMITING; Start 11/11/18 at 07:00 Acetaminophen (Tylenol Tab) 650 mg Q6H PRN PO .PAIN 1-3 OR TEMP; Start 11/11/18 at 07:00 Acetaminophen/ Hydrocodone Bitart ([place] (5/325)) 1 tab Q6H PRN PO .MOD PAIN 4- 6; Start 11/11/18 at 07:00 Docusate Sodium (Colace) 100 mg Q12H PRN PO .CONSTIPATION; Start 11/11/18 at 07:00 Bisacodyl (Dulcolax) 5 mg DAILY PRN PO .CONSTIPATION; Start 11/11/18 at 07:00 Vancomycin HCl (Vanco Iv Per Pharmacy) VANCOMYCIN PER PHARMACY PER PROTOCOL XX ; Start 11/11/18 at 07:00 Pantoprazole (Protonix Tab) 40 mg DAILY@06 PO Last administered on 11/13/18at 05:23; Admin Dose 40 MG; Start 11/12/18 at 06:00 Miscellaneous Information 1 ea NOTE XX ; Start 11/11/18 at 08:00 Glucose (Glutose) 15 gm Q15M PRN PO DECREASED GLUCOSE; Start 11/11/18 at 08:00 Glucose (Glutose) 22.5 gm Q15M PRN PO DECREASED GLUCOSE; Start 11/11/18 at 08:00 Dextrose (D50w Syringe) 25 ml Q15M PRN IV DECREASED GLUCOSE; Start 11/11/18 at 08:00 Dextrose (D50w Syringe) 50 ml Q15M PRN IV DECREASED GLUCOSE; Start 11/11/18 at 08:00 Glucagon (Glucagen) 1 mg Q15M PRN IM DECREASED GLUCOSE; Start 11/11/18 at 08:00 Glucose (Glutose) 15 gm Q15M PRN BUCCAL DECREASED GLUCOSE; Start 11/11/18 at 08:00 Levofloxacin/ Dextrose 150 ml @ 100 mls/hr Q24H IVPB Last administered on 11/13/18 13:53; Admin Dose 100 MLS/HR; Start 11/11/18 at 14:00 Diagnostic Test (Pha) (Accu-Chek) 1 ea 02 XX Last administered on 11/13/18 02:51; Admin Dose 1 EA; Start 11/12/18 at 02:00 Insulin Aspart (Novolog Insulin Pen) 7 unit WITH MEALS SC Last administered on 11/13/18 12:12; Admin Dose 7 UNIT; Start 11/11/18 at 17:35 Insulin Aspart (Novolog Insulin Pen) NOVOLOG *MILD* ALGORITHM WITH MEALS BEDTIME SC Last administered on 11/13/18 12:12; Admin Dose 1 UNIT; Start 11/11/18 at 18:05 Hydralazine HCl (Apresoline) 50 mg BID PO Last administered on 11/13/18 08:07; Admin Dose 50 MG; Start 11/11/18 at 21:00 Insulin Glargine (Lantus) 40 units QHS SC Last administered on 11/12/18 20:57; Admin Dose 40 UNITS; Start 11/11/18 at 21:55 Lisinopril (Zestril) 5 mg BID PO Last administered on 11/13/18 08:07; Admin Dose 5 MG; Start 11/12/18 at 21:00 Metronidazole (Flagyl) 500 mg Q8 PO Last administered on 11/13/18 13:52; Admin Dose 500 MG; Start 11/12/18 at 22:00 Vancomycin HCl 100 ml @ 100 mls/hr Q12H IVPB Last administered on 11/13/18 03:06; Admin Dose 100 MLS/HR; Start 11/13/18 at 03:00 Simethicone (Mylicon) 80 mg Q6H PRN PO gas Last administered on 11/13/18at 03:06; Admin Dose 80 MG; Start 11/13/18 at 03:00 Miscellaneous Information (*Rx Drug Level Order Reminder*) 1 0200 ONCE XX ; Start 11/14/18 at 02:00; Stop 11/14/18 at 02:01 Enoxaparin Sodium (Lovenox) 30 mg DAILY SC ; Start 11/14/18 at 09:00 Fish Oil (Fish Oil) 1,000 mg BID PO ; Start 11/13/18 at 21:00 VIVIENNE COOL NP Nov 13, 2018 14:06
[2018-11-13 20:00] VITALS: BP 193/77; PULSE 74; RESP 20
[2018-11-13] MEDS: INSULIN GLARGINE [LANTus] (100 UNITS/ML) SYG SC SCH (20:40)
[2018-11-13] MEDS: FISH OIL 1,000 MG CAP PO SCH (20:40)
[2018-11-14 02:00] VITALS: BP 154/68; PULSE 68; RESP 18
[2018-11-14] MEDS: ACCU-CHEK XX SCH (02:00)
[2018-11-14] MEDS: VANCOMYCIN 500 MG (PMX) 100 ML IVPB SCH (03:20)
[2018-11-14] MEDS: metroNIDAZOLE 500 MG TAB PO SCH ×3 (04:54→21:02)
[2018-11-14] MEDS: PANTOPRAZOLE (EC) 40 MG TAB PO SCH (04:54)
[2018-11-14 07:25] VITALS: BP 104/50; PULSE 58; RESP 16
[2018-11-14] MEDS: INSULIN ASPART [NOVOLOG] 3 ML PEN SC SCH ×7 (08:00→20:59)
[2018-11-14] MEDS: ENOXAPARIN 30 MG/0.3 ML SYG SC SCH (08:13)
[2018-11-14] MEDS: LISINOPRIL 10 MG TAB PO SCH ×2 (08:13→21:04)
[2018-11-14] MEDS: FISH OIL 1,000 MG CAP PO SCH ×2 (08:14→21:01)
--- NOTE | 2018-11-14 09:17 | PREAC ---
Date/Time of Note Date/Time of Note DATE: 11/14/18 TIME: 09:15 Anesthesia Eval and Record Evaluation Time Pre-Procedure Interview DATE: 11/14/18 TIME: 09:15 Age 58 Sex female NPO: 8 hrs Preoperative diagnosis left inner foot wound Planned procedure WOUND DEBRIDEMENT LEFT INNER FOOT Past Medical History Past Medical History: Includes Cardio: HTN Endo: Diabetes Heme: Anemia Surgery & Anesthesia Issues No known issue Meds Anticoagulation: No Beta Kristen within 24 hr: No Reason Beta Kristen not given: Pt. not on B-Kristen Active Scripts Levofloxacin* (Levofloxacin*) 250 Mg Tablet, 250 MG PO DAILY@06, #38 TAB 6 weeks therapy (already received 4 days). 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 09/05/18 Pantoprazole* (Pantoprazole*) 40 Mg Tablet.dr, 40 MG PO DAILY@06 for 14 Days, #14 Prov:CASSIUS NEGRETE MD 08/26/18 Acetaminophen* (Tylenol*) 325 Mg Tablet, 650 MG PO Q6H PRN for FEVER GREATER THAN 100.6 for 1 Day, #1 TAB Prov:CASSIUS NEGRETE MD 08/26/18 Reported Medications Meclizine Hcl* (Meclizine Hcl*) 25 Mg Tablet, 25 MG PO TID PRN for DIZZINESS, TAB 10/29/18 Hydralazine Hcl* (Hydralazine Hcl*) 100 Mg Tablet, 100 MG PO BID PRN for ELEVATED BLOOD PRESSURE, #90 TAB 10/29/18 Ferrous Sulfate* (Ferrous Sulfate*) 325 Mg Tabec, 325 MG PO DAILY, TAB 10/29/18 Insulin Glargine,Hum.rec.anlog (Basaglar Kwikpen U-100) 100 Unit/1 Ml Insuln.pen, 40 UNIT SC QHS, EA 10/29/18 Insulin Lispro (Humalog Kwikpen) 200 Unit/1 Ml Insuln.pen, 20 UNIT SQ AC YARON AKFAST DINNER, EA 10/29/18 Cholecalciferol (Vitamin D3) (Vitamin D-3) 2,000 Unit Tablet, 2000 UNIT PO DAILY, TAB 08/20/18 Glipizide* (Glipizide*) 10 Mg Tablet, 10 MG PO AC BREAKFAST DINNER, TAB 08/20/18 Sitagliptin Phos-Metformin Hcl (Janumet XR) 100-1,000 Mg Tbmp.24hr, 1 TAB PO WITH DINNER, #30 TAB 08/20/18 Lisinopril* (Lisinopril*) 5 Mg Tablet, 5 MG PO BID, #30 TAB 08/20/18 Gabapentin* (Gabapentin*) 100 Mg Capsule, 100 MG PO BID, #90 CAP 08/20/18 Current Medications IV Flush (NS 3 ml) 3 ml PER PROTOCOL IV ; Start 11/11/18 at 07:00 Ondansetron HCl (Zofran Inj) 4 mg Q6H PRN IV NAUSEA/VOMITING; Start 11/11/18 at 07:00 Acetaminophen (Tylenol Tab) 650 mg Q6H PRN PO .PAIN 1-3 OR TEMP; Start 11/11/18 at 07:00 Acetaminophen/ Hydrocodone Bitart ([place] (5/325)) 1 tab Q6H PRN PO .MOD PAIN 4- 6 Last administered on 11/14/18at 04:49; Admin Dose 1 TAB; Start 11/11/18 at 07 :00 Docusate Sodium (Colace) 100 mg Q12H PRN PO .CONSTIPATION; Start 11/11/18 at 07:00 Bisacodyl (Dulcolax) 5 mg DAILY PRN PO .CONSTIPATION; Start 11/11/18 at 07:00 Vancomycin HCl (Vanco Iv Per Pharmacy) VANCOMYCIN PER PHARMACY PER PROTOCOL XX ; Start 11/11/18 at 07:00 Pantoprazole (Protonix Tab) 40 mg DAILY@06 PO Last administered on 11/14/18at 04:54; Admin Dose 40 MG; Start 11/12/18 at 06:00 Miscellaneous Information 1 ea NOTE XX ; Start 11/11/18 at 08:00 Glucose (Glutose) 15 gm Q15M PRN PO DECREASED GLUCOSE; Start 11/11/18 at 08:00 Glucose (Glutose) 22.5 gm Q15M PRN PO DECREASED GLUCOSE; Start 11/11/18 at 08:00 Dextrose (D50w Syringe) 25 ml Q15M PRN IV DECREASED GLUCOSE; Start 11/11/18 at 08:00 Dextrose (D50w Syringe) 50 ml Q15M PRN IV DECREASED GLUCOSE; Start 11/11/18 at 08:00 Glucagon (Glucagen) 1 mg Q15M PRN IM DECREASED GLUCOSE; Start 11/11/18 at 08:00 Glucose (Glutose) 15 gm Q15M PRN BUCCAL DECREASED GLUCOSE; Start 11/11/18 at 08:00 Levofloxacin/ Dextrose 150 ml @ 100 mls/hr Q24H IVPB Last administered on 11/13/18 13:53; Admin Dose 100 MLS/HR; Start 11/11/18 at 14:00 Diagnostic Test (Pha) (Accu-Chek) 1 ea 02 XX Last administered on 11/13/18 02:51; Admin Dose 1 EA; Start 11/12/18 at 02:00 Insulin Aspart (Novolog Insulin Pen) 7 unit WITH MEALS SC Last administered on 11/14/18 08:12; Admin Dose 7 UNIT; Start 11/11/18 at 17:35 Insulin Aspart (Novolog Insulin Pen) NOVOLOG *MILD* ALGORITHM WITH MEALS BEDTIME SC Last administered on 11/13/18 17:52; Admin Dose 2 UNIT; Start 11/11/18 at 18:05 Hydralazine HCl (Apresoline) 50 mg BID PO Last administered on 11/14/18 08:13; Admin Dose 50 MG; Start 11/11/18 at 21:00 Insulin Glargine (Lantus) 40 units QHS SC Last administered on 11/13/18 20:40; Admin Dose 40 UNITS; Start 11/11/18 at 21:55 Lisinopril (Zestril) 5 mg BID PO Last administered on 11/14/18 08:13; Admin Dose 5 MG; Start 11/12/18 at 21:00 Metronidazole (Flagyl) 500 mg Q8 PO Last administered on 11/14/18 04:54; Admin Dose 500 MG; Start 11/12/18 at 22:00 Vancomycin HCl 100 ml @ 100 mls/hr Q12H IVPB Last administered on 11/14/18 03:20; Admin Dose 100 MLS/HR; Start 11/13/18 at 03:00 Simethicone (Mylicon) 80 mg Q6H PRN PO gas Last administered on 11/13/18 03:06; Admin Dose 80 MG; Start 11/13/18 at 03:00 Enoxaparin Sodium (Lovenox) 30 mg DAILY SC Last administered on 4/19/19at 08:13; Admin Dose 30 MG; Start 11/14/18 at 09:00 Fish Oil (Fish Oil) 1,000 mg BID PO Last administered on 11/14/18at 08:14; Admin Dose 1,000 MG; Start 11/13/18 at 21:00 Meds reviewed: Yes Allergies Coded Allergies: aspirin (Verified Allergy, Unknown, itching, 11/11/18) Allergies Reviewed: Yes Labs/Studies Labs Reviewed: Reviewed by anesthesiologist Result Diagram: 11/13/1851411/13/18514 test: N/A Studies: ECG (SR), CXR (The cardiomediastinal silhouette is normal.The aortic arch is calcified. No focal consolidation, pleural effusion or pneumothorax is seen. The osseous structures are intact. ) Pre-procedure Exam Last vitals Vital Signs Date Temp Pulse Resp B/P (MAP) Pulse Ox O2 O2 Flow FiO2 Time Delivery Rate 11/14/18 98.1 58 16 104/50 99 Room Air 07:25 (68) Airway: Adequate mouth opening Mallampati: Mallampati II Teeth: Normal Lung: Normal Heart: Normal ASA Physical Status ASA physical status: 2 Emergency: None Planned Anesthetic General/MAC: ETT Pre-operative Attestations Prior to commencing anesthesia and surgery, the patient was re-evaluated, there was verification of: *The patient's identity *The results of appropriate recent lab work and preoperative vital signs *The above evaluation not changing prior to induction *Anesthetic plan, risk benefits, alternative and complications discussed with patient/family; questions answered; patient/family understands, accepts and wishes to proceed. TATI MALHOTRA Nov 14, 2018 09:17
--- NOTE | 2018-11-14 10:20 | PN ---
Date/Time of Note Date/Time of Note DATE: 11/14/18 TIME: 10:17 Assessment/Plan VTE Prophylaxis Risk score (from Ns)>0 risk: 2 SCD applied (from Ns): No SCD contraindicated: other Pharmacological prophylaxis: LMWH Lines/Catheters IV Catheter Type (from [facility]): Peripheral IV Urinary Cath still in place: No Assessment/Plan Hospital Course SUBJECTIVE: no acute distress OBJECTIVE: Vital signs-see below PHYSICAL EXAM: Constitutional: Well-developed, well-nourished not in acute distress. HEENT: Head atraumatic and normocephalic. Eyes: Extraocular muscles intact. Anicteric sclerae. Pupils equal bilaterally, reactive to light. NECK: Supple without lymph node. CHEST: Clear and good breath sounds equally. No wheezing. No rhonchi. HEART: S1, S2. Regular rate and rhythm. ABDOMEN: Soft with no rebound tenderness. Bowel sounds were present. EXTREMITIES: Left foot covered with Kerlix dressing, clean/dry/intact. No oozing noted outside. Full range of motion in all the extremities. No cyanosis, clubbing or edema. NEUROLOGIC: Alert and oriented x3. No focal deficit. No sensory deficit. PSYCHOSOCIAL: In a good mood. No signs of depression. INTEGUMENTARY: Moist mucous membranes. Good skin turgor, intact. ASSESSMENT AND PLAN: 58-year-old female with diabetes, hypertension, diabetic foot ulcers with history of multiple toe amputations, osteomyelitis, who also had a recent procedure done on her left foot with sutures removed last week, came back with wound remained open and started draining yellow secretions. 1. Left foot diabetic ulcer w/OM first MTP joint -management per podiatry=>On wound vac therapy w/ possible debridement of the osteomyelitic bone of the 1st metatarsal. -Cont.wound care as instructed per podiatry -CS growing polymicrobials-abx per ID -Picc line today 2. Acute on Chronic anemia with inflammation -s/p1 PRBC ,now stable HH -Monitor 3. Essential hypertension. -now stable. -cont.low dose ACEi 4.Diabetic neuropathy cont. gabapentin 5.Type 2 diabetes,poorly controlled -Stable glycemic trends..Cont. Accu-Cheks/lantus/pre-meal insulin and sliding scale insulin. -carb-controlled controlled diet. 6.Vitamin D deficiency. -on supplementation. 7.Triglyceridemia -Fish oil sup. LDL stable DVT prophylaxis:Lovenox PUD prophylaxis: PPI disp;cont.wound care per podiatry.cont.antimicrobials. f/u podiatry recs, likely plan for debridement of left first MT on Saturday. PICC line in anticipation for long-term IV antimicrobials, case management to arrange home health for IV antibiotic and wound VAC if needed on discharge. Patient was seen in collaboration with Dr. Junior. Result Diagram: 11/13/1851411/13/1815 Results 24hrs Laboratory Tests Test 11/13/18 12:06 11/13/18 17:50 11/13/18 20:32 11/14/18 02:02 Bedside Glucose 154 197 179 Vancomycin Level 11.1 Trough Test 11/14/18 02:20 11/14/18 08:07 Bedside Glucose 117 80 Exam/Review of Systems Exam Vitals Vital Signs Date Temp Pulse Resp B/P (MAP) Pulse Ox O2 O2 Flow FiO2 Time Delivery Rate 11/14/18 98.1 58 16 104/50 99 Room Air 07:25 (68) Intake and Output 11/13/18 11/13/18 11/14/18 1515:00 23:00 07:00 IntakeIntake Total 470 ml 250 ml 350 ml BalanceBalance 470 ml 250 ml 350 ml Results Results 24hrs Laboratory Tests Test 11/13/18 12:06 11/13/18 17:50 11/13/18 20:32 11/14/18 02:02 Bedside Glucose 154 197 179 Vancomycin Level 11.1 Trough Test 11/14/18 02:20 11/14/18 08:07 Bedside Glucose 117 80 Medications Medication Current Medications IV Flush (NS 3 ml) 3 ml PER PROTOCOL IV ; Start 11/11/18 at 07:00 Ondansetron HCl (Zofran Inj) 4 mg Q6H PRN IV NAUSEA/VOMITING; Start 11/11/18 at 07:00 Acetaminophen (Tylenol Tab) 650 mg Q6H PRN PO .PAIN 1-3 OR TEMP; Start 11/11/18 at 07:00 Acetaminophen/ Hydrocodone Bitart ([place] (5/325)) 1 tab Q6H PRN PO .MOD PAIN 4- 6 Last administered on 11/14/18at 04:49; Admin Dose 1 TAB; Start 11/11/18 at 07 :00 Docusate Sodium (Colace) 100 mg Q12H PRN PO .CONSTIPATION; Start 11/11/18 at 07:00 Bisacodyl (Dulcolax) 5 mg DAILY PRN PO .CONSTIPATION; Start 11/11/18 at 07:00 Vancomycin HCl (Vanco Iv Per Pharmacy) VANCOMYCIN PER PHARMACY PER PROTOCOL XX ; Start 11/11/18 at 07:00 Pantoprazole (Protonix Tab) 40 mg DAILY@06 PO Last administered on 11/14/18at 04:54; Admin Dose 40 MG; Start 11/12/18 at 06:00 Miscellaneous Information 1 ea NOTE XX ; Start 11/11/18 at 08:00 Glucose (Glutose) 15 gm Q15M PRN PO DECREASED GLUCOSE; Start 11/11/18 at 08:00 Glucose (Glutose) 22.5 gm Q15M PRN PO DECREASED GLUCOSE; Start 11/11/18 at 08:00 Dextrose (D50w Syringe) 25 ml Q15M PRN IV DECREASED GLUCOSE; Start 11/11/18 at 08:00 Dextrose (D50w Syringe) 50 ml Q15M PRN IV DECREASED GLUCOSE; Start 11/11/18 at 08:00 Glucagon (Glucagen) 1 mg Q15M PRN IM DECREASED GLUCOSE; Start 11/11/18 at 08:00 Glucose (Glutose) 15 gm Q15M PRN BUCCAL DECREASED GLUCOSE; Start 11/11/18 at 08:00 Levofloxacin/ Dextrose 150 ml @ 100 mls/hr Q24H IVPB Last administered on 11/13/18at 13:53; Admin Dose 100 MLS/HR; Start 11/11/18 at 14:00 Diagnostic Test (Pha) (Accu-Chek) 1 ea 02 XX Last administered on 11/13/18at 02:51; Admin Dose 1 EA; Start 11/12/18 at 02:00 Insulin Aspart (Novolog Insulin Pen) 7 unit WITH MEALS SC Last administered on 11/14/18at 08:12; Admin Dose 7 UNIT; Start 11/11/18 at 17:35 Insulin Aspart (Novolog Insulin Pen) NOVOLOG *MILD* ALGORITHM WITH MEALS BEDTIME SC Last administered on 11/13/18at 17:52; Admin Dose 2 UNIT; Start 11/11/18 at 18:05 Hydralazine HCl (Apresoline) 50 mg BID PO Last administered on 11/14/18 08:13; Admin Dose 50 MG; Start 11/11/18 at 21:00 Insulin Glargine (Lantus) 40 units QHS SC Last administered on 11/13/18 20:40; Admin Dose 40 UNITS; Start 11/11/18 at 21:55 Lisinopril (Zestril) 5 mg BID PO Last administered on 11/14/18 08:13; Admin Dose 5 MG; Start 11/12/18 at 21:00 Metronidazole (Flagyl) 500 mg Q8 PO Last administered on 11/14/18 04:54; Admin Dose 500 MG; Start 11/12/18 at 22:00 Vancomycin HCl 100 ml @ 100 mls/hr Q12H IVPB Last administered on 11/14/18 03:20; Admin Dose 100 MLS/HR; Start 11/13/18 at 03:00 Simethicone (Mylicon) 80 mg Q6H PRN PO gas Last administered on 11/13/18 03:06; Admin Dose 80 MG; Start 11/13/18 at 03:00 Enoxaparin Sodium (Lovenox) 30 mg DAILY SC Last administered on 11/14/18 08:13; Admin Dose 30 MG; Start 11/14/18 at 09:00 Fish Oil (Fish Oil) 1,000 mg BID PO Last administered on 11/14/18 08:14; Admin Dose 1,000 MG; Start 11/13/18 at 21:00 FLORENCE SAUNDERS NP Nov 14, 2018 10:20
[2018-11-14] MEDS ORDERED: LIDOCAINE 1% (MPF) 5 ML VIAL SC ONE (11:00)
--- NOTE | 2018-11-14 13:27 | CONS ---
Assessment/Plan Assessment/Plan Hospital Course (Demo Recall) Alert, feels good, no v/d Microbiology: Blood culture on admission grew coag negative staph species one set. Wound culture growing Klebsiella oxytoca, enterococcus, staph aureus, Enterobacter cloaca Antimicrobials: Vancomycin, Levaquin Flagyl Physical examination: This is well-developed fragile elderly woman who is awake in no distress. Head atraumatic normocephalic sclera nonicteric vehicle mucosa dry neck is supple chest rise symmetrical breath sounds diminished bases. Heart: S1-S2. Abdomen soft bowel sounds present. Extremities with left foot dressing intact Assessment: 1. Left diabetic ulceration with osteomyelitis 2. Diabetes 3. Diarrhea, rule out C. difficile 4. Anemia 5. Peripheral arterial disease 6. Bacteremia, consistent with contaminant Plan: Remains stable, continue antibiotics, follow final cultures, podiatry recommendations Consultation Date/Type/Reason Admit Date/Time Nov 11, 2018 at 06:24 Initial Consult Date Type of Consult id Date/Time of Note DATE: 11/14/18 TIME: 13:26 Exam/Review of Systems Exam Vitals Vital Signs Date Temp Pulse Resp B/P (MAP) Pulse Ox O2 O2 Flow FiO2 Time Delivery Rate 11/14/18 98.1 58 16 104/50 99 Room Air 07:25 (68) Intake and Output 11/13/18 11/13/18 11/14/18 1515:00 23:00 07:00 IntakeIntake Total 470 ml 250 ml 350 ml BalanceBalance 470 ml 250 ml 350 ml Results Result Diagram: 11/13/18 0515 11/13/18 0515 Results 24hrs Laboratory Tests Test 11/13/18 17:50 11/13/18 20:32 11/14/18 02:02 11/14/18 02:20 Bedside Glucose 197 179 117 Vancomycin Level 11.1 Trough Test 11/14/18 08:07 11/14/18 12:08 Bedside Glucose 80 182 Medications Medication Current Medications IV Flush (NS 3 ml) 3 ml PER PROTOCOL IV ; Start 11/11/18 at 07:00 Ondansetron HCl (Zofran Inj) 4 mg Q6H PRN IV NAUSEA/VOMITING; Start 11/11/18 at 07:00 Acetaminophen (Tylenol Tab) 650 mg Q6H PRN PO .PAIN 1-3 OR TEMP; Start 11/11/18 at 07:00 Acetaminophen/ Hydrocodone Bitart ([place] (5/325)) 1 tab Q6H PRN PO .MOD PAIN 4- 6 Last administered on 11/14/18at 04:49; Admin Dose 1 TAB; Start 11/11/18 at 07:00 Docusate Sodium (Colace) 100 mg Q12H PRN PO .CONSTIPATION; Start 11/11/18 at 07:00 Bisacodyl (Dulcolax) 5 mg DAILY PRN PO .CONSTIPATION; Start 11/11/18 at 07:00 Vancomycin HCl (Vanco Iv Per Pharmacy) VANCOMYCIN PER PHARMACY PER PROTOCOL XX ; Start 11/11/18 at 07:00 Pantoprazole (Protonix Tab) 40 mg DAILY@06 PO Last administered on 11/14/18at 04:54; Admin Dose 40 MG; Start 11/12/18 at 06:00 Miscellaneous Information 1 ea NOTE XX ; Start 11/11/18 at 08:00 Glucose (Glutose) 15 gm Q15M PRN PO DECREASED GLUCOSE; Start 11/11/18 at 08:00 Glucose (Glutose) 22.5 gm Q15M PRN PO DECREASED GLUCOSE; Start 11/11/18 at 08:00 Dextrose (D50w Syringe) 25 ml Q15M PRN IV DECREASED GLUCOSE; Start 11/11/18 at 08:00 Dextrose (D50w Syringe) 50 ml Q15M PRN IV DECREASED GLUCOSE; Start 11/11/18 at 08:00 Glucagon (Glucagen) 1 mg Q15M PRN IM DECREASED GLUCOSE; Start 11/11/18 at 08:00 Glucose (Glutose) 15 gm Q15M PRN BUCCAL DECREASED GLUCOSE; Start 11/11/18 at 08:00 Levofloxacin/ Dextrose 150 ml @ 100 mls/hr Q24H IVPB Last administered on 11/13/18at 13:53; Admin Dose 100 MLS/HR; Start 11/11/18 at 14:00 Diagnostic Test (Pha) (Accu-Chek) 1 ea 02 XX Last administered on 11/13/18at 02:51; Admin Dose 1 EA; Start 11/12/18 at 02:00 Insulin Aspart (Novolog Insulin Pen) NOVOLOG *MILD* ALGORITHM WITH MEALS BEDTIME SC Last administered on 11/14/18at 12:11; Admin Dose 2 UNIT; Start 11/11/18 at 18:05 Hydralazine HCl (Apresoline) 50 mg BID PO Last administered on 11/14/18 08:13; Admin Dose 50 MG; Start 11/11/18 at 21:00 Lisinopril (Zestril) 5 mg BID PO Last administered on 11/14/18 08:13; Admin Dose 5 MG; Start 11/12/18 at 21:00 Metronidazole (Flagyl) 500 mg Q8 PO Last administered on 11/14/18 04:54; Admin Dose 500 MG; Start 11/12/18 at 22:00 Simethicone (Mylicon) 80 mg Q6H PRN PO gas Last administered on 11/13/18 03:06; Admin Dose 80 MG; Start 11/13/18 at 03:00 Enoxaparin Sodium (Lovenox) 30 mg DAILY SC Last administered on 11/14/18 08:13; Admin Dose 30 MG; Start 11/14/18 at 09:00 Fish Oil (Fish Oil) 1,000 mg BID PO Last administered on 11/14/18 08:14; Admin Dose 1,000 MG; Start 11/13/18 at 21:00 Insulin Aspart (Novolog Insulin Pen) 3 unit WITH MEALS SC Last administered on 11/14/18 12:11; Admin Dose 3 UNIT; Start 11/14/18 at 11:30 Insulin Glargine (Lantus) 30 units QHS SC ; Start 11/14/18 at 21:00 Vancomycin/Sodium Chloride 250 ml @ 125 mls/hr Q12H IVPB ; Start 11/14/18 at 16:00 VIVIENNE COOL NP Nov 14, 2018 13:27
[2018-11-14] MEDS: LEVOFLOXACIN 750MG/D5W (PMX) 150 ML IVPB SCH (13:47)
[2018-11-14 14:23] VITALS: BP 140/63; PULSE 63; RESP 16
[2018-11-14] MEDS: VANCOMYCIN 750 MG (PMX) 250 ML IVPB SCH (15:47)
[2018-11-14 20:00] VITALS: BP 159/70; PULSE 88; RESP 18
[2018-11-14] MEDS: INSULIN GLARGINE [LANTus] (100 UNITS/ML) SYG SC SCH (20:58)
[2018-11-15 02:00] VITALS: BP 152/72; PULSE 65; RESP 17
[2018-11-15] MEDS: ACCU-CHEK XX SCH (02:40)
[2018-11-15] MEDS: VANCOMYCIN 750 MG (PMX) 250 ML IVPB SCH ×2 (03:38→15:58)
[2018-11-15] MEDS: PANTOPRAZOLE (EC) 40 MG TAB PO SCH (05:06)
[2018-11-15] MEDS: metroNIDAZOLE 500 MG TAB PO SCH ×3 (05:06→22:04)
[2018-11-15] MEDS: INSULIN ASPART [NOVOLOG] 3 ML PEN SC SCH ×7 (07:51→20:29)
[2018-11-15 08:09] VITALS: BP 157/70; PULSE 62; RESP 18
[2018-11-15] MEDS: FISH OIL 1,000 MG CAP PO SCH (08:27)
[2018-11-15] MEDS: LISINOPRIL 10 MG TAB PO SCH ×2 (08:27→20:38)
[2018-11-15] MEDS: ENOXAPARIN 30 MG/0.3 ML SYG SC SCH (08:28)
--- NOTE | 2018-11-15 11:09 | CONS ---
Consultation Date/Type/Reason Admit Date/Time Nov 11, 2018 at 06:24 Initial Consult Date Date/Time of Note DATE: 11/15/18 TIME: 11:07 24 HR Interval Summary Free Text/Dictation Saturday debridement of the osteomyelitic 1st Metatarsal. Application of allograft. NPO after midnight. Exam/Review of Systems Exam Vitals Vital Signs Date Temp Pulse Resp B/P (MAP) Pulse Ox O2 O2 Flow FiO2 Time Delivery Rate 11/15/18 98.1 62 18 157/70 99 Room Air 08:09 (99) Intake and Output 11/14/18 11/14/18 11/15/18 1515:00 23:00 07:00 IntakeIntake Total 670 ml 760 ml 550 ml BalanceBalance 670 ml 760 ml 550 ml Results Result Diagram: 11/15/18 0535 11/15/18 0535 Results 24hrs Laboratory Tests Test 11/14/18 12:08 11/14/18 17:25 11/14/18 20:55 11/15/18 02:36 Bedside Glucose 182 238 H 192 109 Test 11/15/18 05:35 11/15/18 07:50 White Blood Count 6.9 # Red Blood Count 4.07 L Hemoglobin 8.5 L Hematocrit 27.4 L Mean Corpuscular 67.3 L Volume Mean Corpuscular 20.9 L Hemoglobin Mean Corpuscular 31.0 L Hemoglobin Concent Red Cell 18.8 H Distribution Width Platelet Count 297 Mean Platelet Volume 9.8 Immature 0.100 Granulocytes % Neutrophils % 67.5 Lymphocytes % 24.7 Monocytes % 5.9 Eosinophils % 1.2 Basophils % 0.6 Nucleated Red Blood 0.0 Cells % Immature 0.010 Granulocytes # Neutrophils # 4.7 Lymphocytes # 1.7 Monocytes # 0.4 Eosinophils # 0.1 Basophils # 0.0 Nucleated Red Blood 0.0 Cells # Sodium Level 140 Potassium Level 4.1 Chloride Level 107 Carbon Dioxide Level 24 Anion Gap 9 Blood Urea Nitrogen 16 Creatinine 0.91 Est Glomerular > 60 Filtrat Rate mL/min Glucose Level 112 Calcium Level 9.7 Bedside Glucose 105 Medications Medication Current Medications IV Flush (NS 3 ml) 3 ml PER PROTOCOL IV ; Start 11/11/18 at 07:00 Ondansetron HCl (Zofran Inj) 4 mg Q6H PRN IV NAUSEA/VOMITING; Start 11/11/18 at 07:00 Acetaminophen (Tylenol Tab) 650 mg Q6H PRN PO .PAIN 1-3 OR TEMP; Start 11/11/18 at 07:00 Acetaminophen/ Hydrocodone Bitart ([place] (5/325)) 1 tab Q6H PRN PO .MOD PAIN 4- 6 Last administered on 11/14/18at 04:49; Admin Dose 1 TAB; Start 11/11/18 at 07:00 Docusate Sodium (Colace) 100 mg Q12H PRN PO .CONSTIPATION; Start 11/11/18 at 07:00 Bisacodyl (Dulcolax) 5 mg DAILY PRN PO .CONSTIPATION; Start 11/11/18 at 07:00 Vancomycin HCl (Vanco Iv Per Pharmacy) VANCOMYCIN PER PHARMACY PER PROTOCOL XX ; Start 11/11/18 at 07:00 Pantoprazole (Protonix Tab) 40 mg DAILY@06 PO Last administered on 11/15/18at 05:06; Admin Dose 40 MG; Start 11/12/18 at 06:00 Miscellaneous Information 1 ea NOTE XX ; Start 11/11/18 at 08:00 Glucose (Glutose) 15 gm Q15M PRN PO DECREASED GLUCOSE; Start 11/11/18 at 08:00 Glucose (Glutose) 22.5 gm Q15M PRN PO DECREASED GLUCOSE; Start 11/11/18 at 08:00 Dextrose (D50w Syringe) 25 ml Q15M PRN IV DECREASED GLUCOSE; Start 11/11/18 at 08:00 Dextrose (D50w Syringe) 50 ml Q15M PRN IV DECREASED GLUCOSE; Start 11/11/18 at 08:00 Glucagon (Glucagen) 1 mg Q15M PRN IM DECREASED GLUCOSE; Start 11/11/18 at 08:00 Glucose (Glutose) 15 gm Q15M PRN BUCCAL DECREASED GLUCOSE; Start 11/11/18 at 08:00 Levofloxacin/ Dextrose 150 ml @ 100 mls/hr Q24H IVPB Last administered on 11/14/18at 13:47; Admin Dose 100 MLS/HR; Start 11/11/18 at 14:00 Diagnostic Test (Pha) (Accu-Chek) 1 ea 02 XX Last administered on 11/15/18at 02:40; Admin Dose 1 EA; Start 11/12/18 at 02:00 Insulin Aspart (Novolog Insulin Pen) NOVOLOG *MILD* ALGORITHM WITH MEALS BEDTIME SC Last administered on 11/14/18 20:59; Admin Dose 1 UNIT; Start 11/11/18 at 18:05 Hydralazine HCl (Apresoline) 50 mg BID PO Last administered on 11/15/18 08:27; Admin Dose 50 MG; Start 11/11/18 at 21:00 Lisinopril (Zestril) 5 mg BID PO Last administered on 11/15/18 08:27; Admin Dose 5 MG; Start 11/12/18 at 21:00 Metronidazole (Flagyl) 500 mg Q8 PO Last administered on 11/15/18 05:06; Admin Dose 500 MG; Start 11/12/18 at 22:00 Simethicone (Mylicon) 80 mg Q6H PRN PO gas Last administered on 11/13/18 03:06; Admin Dose 80 MG; Start 11/13/18 at 03:00 Enoxaparin Sodium (Lovenox) 30 mg DAILY SC Last administered on 11/15/18 08:28; Admin Dose 30 MG; Start 11/14/18 at 09:00 Fish Oil (Fish Oil) 1,000 mg BID PO Last administered on 11/15/18 08:27; Admin Dose 1,000 MG; Start 11/13/18 at 21:00 Insulin Aspart (Novolog Insulin Pen) 3 unit WITH MEALS SC Last administered on 11/15/18 08:31; Admin Dose 3 UNIT; Start 11/14/18 at 11:30 Insulin Glargine (Lantus) 30 units QHS SC Last administered on 11/14/18 20:58; Admin Dose 30 UNITS; Start 11/14/18 at 21:00 Vancomycin/Sodium Chloride 250 ml @ 125 mls/hr Q12H IVPB Last administered on 11/15/18 03:38; Admin Dose 125 MLS/HR; Start 11/14/18 at 16:00 IV Flush (NS 10 ml) 10 ml PRN PRN IV FLUSH LINE; Start 11/14/18 at 19:00 MEENU PATRICK DPM Nov 15, 2018 11:09
--- NOTE | 2018-11-15 13:09 | CONS ---
Assessment/Plan Assessment/Plan Hospital Course (Demo Recall) No acute changes Microbiology: Blood culture on admission grew coag negative staph species one set. Wound cultures growing Klebsiella oxytoca, enterococcus species, Enterobacter cloaca, KEVIN Antimicrobials: Vancomycin, Levaquin Flagyl Physical examination: This is well-developed fragile elderly woman who is awake in no distress. Head atraumatic normocephalic sclera nonicteric vehicle mucosa dry neck is supple chest rise symmetrical breath sounds diminished bases. Heart: S1-S2. Abdomen soft bowel sounds present. Extremities with left foot dressing intact Assessment: 1. Left diabetic ulceration with osteomyelitis 2. Diabetes 3. Diarrhea, rule out C. difficile 4. Anemia 5. Peripheral arterial disease 6. Bacteremia, consistent with contaminant Plan: Remains stable, continue antibiotics for 6 weeks, follow podiatry recommendations, s/p PICC Consultation Date/Type/Reason Admit Date/Time Nov 11, 2018 at 06:24 Initial Consult Date Type of Consult id Date/Time of Note DATE: 11/15/18 TIME: 13:07 Exam/Review of Systems Exam Vitals Vital Signs Date Temp Pulse Resp B/P (MAP) Pulse Ox O2 O2 Flow FiO2 Time Delivery Rate 11/15/18 98.1 62 18 157/70 99 Room Air 08:09 (99) Intake and Output 11/14/18 11/14/18 11/15/18 1515:00 23:00 07:00 IntakeIntake Total 670 ml 760 ml 550 ml BalanceBalance 670 ml 760 ml 550 ml Results Result Diagram: 11/15/18 0535 11/15/18 0535 Results 24hrs Laboratory Tests Test 11/14/18 17:25 11/14/18 20:55 11/15/18 02:36 11/15/18 05:35 Bedside Glucose 238 H 192 109 White Blood Count 6.9 # Red Blood Count 4.07 L Hemoglobin 8.5 L Hematocrit 27.4 L Mean Corpuscular 67.3 L Volume Mean Corpuscular 20.9 L Hemoglobin Mean Corpuscular 31.0 L Hemoglobin Concent Red Cell 18.8 H Distribution Width Platelet Count 297 Mean Platelet Volume 9.8 Immature 0.100 Granulocytes % Neutrophils % 67.5 Lymphocytes % 24.7 Monocytes % 5.9 Eosinophils % 1.2 Basophils % 0.6 Nucleated Red Blood 0.0 Cells % Immature 0.010 Granulocytes # Neutrophils # 4.7 Lymphocytes # 1.7 Monocytes # 0.4 Eosinophils # 0.1 Basophils # 0.0 Nucleated Red Blood 0.0 Cells # Sodium Level 140 Potassium Level 4.1 Chloride Level 107 Carbon Dioxide Level 24 Anion Gap 9 Blood Urea Nitrogen 16 Creatinine 0.91 Est Glomerular > 60 Filtrat Rate mL/min Glucose Level 112 Calcium Level 9.7 Test 11/15/18 07:50 11/15/18 11:42 Bedside Glucose 105 146 Medications Medication Current Medications IV Flush (NS 3 ml) 3 ml PER PROTOCOL IV ; Start 11/11/18 at 07:00 Ondansetron HCl (Zofran Inj) 4 mg Q6H PRN IV NAUSEA/VOMITING; Start 11/11/18 at 07:00 Acetaminophen (Tylenol Tab) 650 mg Q6H PRN PO .PAIN 1-3 OR TEMP; Start 11/11/18 at 07:00 Acetaminophen/ Hydrocodone Bitart ([place] (5/325)) 1 tab Q6H PRN PO .MOD PAIN 4- 6 Last administered on 11/14/18at 04:49; Admin Dose 1 TAB; Start 11/11/18 at 07:00 Docusate Sodium (Colace) 100 mg Q12H PRN PO .CONSTIPATION; Start 11/11/18 at 07:00 Bisacodyl (Dulcolax) 5 mg DAILY PRN PO .CONSTIPATION; Start 11/11/18 at 07:00 Vancomycin HCl (Vanco Iv Per Pharmacy) VANCOMYCIN PER PHARMACY PER PROTOCOL XX ; Start 11/11/18 at 07:00 Pantoprazole (Protonix Tab) 40 mg DAILY@06 PO Last administered on 11/15/18at 05:06; Admin Dose 40 MG; Start 11/12/18 at 06:00 Miscellaneous Information 1 ea NOTE XX ; Start 11/11/18 at 08:00 Glucose (Glutose) 15 gm Q15M PRN PO DECREASED GLUCOSE; Start 11/11/18 at 08:00 Glucose (Glutose) 22.5 gm Q15M PRN PO DECREASED GLUCOSE; Start 11/11/18 at 08:00 Dextrose (D50w Syringe) 25 ml Q15M PRN IV DECREASED GLUCOSE; Start 11/11/18 at 08:00 Dextrose (D50w Syringe) 50 ml Q15M PRN IV DECREASED GLUCOSE; Start 11/11/18 at 08:00 Glucagon (Glucagen) 1 mg Q15M PRN IM DECREASED GLUCOSE; Start 11/11/18 at 08:00 Glucose (Glutose) 15 gm Q15M PRN BUCCAL DECREASED GLUCOSE; Start 11/11/18 at 08:00 Levofloxacin/ Dextrose 150 ml @ 100 mls/hr Q24H IVPB Last administered on 11/14/18 13:47; Admin Dose 100 MLS/HR; Start 11/11/18 at 14:00 Diagnostic Test (Pha) (Accu-Chek) 1 ea 02 XX Last administered on 11/15/18 02:40; Admin Dose 1 EA; Start 11/12/18 at 02:00 Insulin Aspart (Novolog Insulin Pen) NOVOLOG *MILD* ALGORITHM WITH MEALS BEDTIME SC Last administered on 11/15/18 12:20; Admin Dose 1 UNIT; Start 11/11/18 at 18:05 Hydralazine HCl (Apresoline) 50 mg BID PO Last administered on 11/15/18 08:27; Admin Dose 50 MG; Start 11/11/18 at 21:00 Lisinopril (Zestril) 5 mg BID PO Last administered on 11/15/18 08:27; Admin Dose 5 MG; Start 11/12/18 at 21:00 Metronidazole (Flagyl) 500 mg Q8 PO Last administered on 11/15/18 05:06; Admin Dose 500 MG; Start 11/12/18 at 22:00 Simethicone (Mylicon) 80 mg Q6H PRN PO gas Last administered on 11/13/18 03:06; Admin Dose 80 MG; Start 11/13/18 at 03:00 Enoxaparin Sodium (Lovenox) 30 mg DAILY SC Last administered on 11/15/18 08:28; Admin Dose 30 MG; Start 11/14/18 at 09:00 Fish Oil (Fish Oil) 1,000 mg BID PO Last administered on 11/15/18 08:27; Admin Dose 1,000 MG; Start 11/13/18 at 21:00 Insulin Aspart (Novolog Insulin Pen) 3 unit WITH MEALS SC Last administered on 11/15/18 12:20; Admin Dose 3 UNIT; Start 11/14/18 at 11:30 Insulin Glargine (Lantus) 30 units QHS SC Last administered on 11/14/18at 20:58; Admin Dose 30 UNITS; Start 11/14/18 at 21:00 Vancomycin/Sodium Chloride 250 ml @ 125 mls/hr Q12H IVPB Last administered on 11/15/18at 03:38; Admin Dose 125 MLS/HR; Start 11/14/18 at 16:00 IV Flush (NS 10 ml) 10 ml PRN PRN IV FLUSH LINE; Start 11/14/18 at 19:00 Miscellaneous Information (*Rx Drug Level Order Reminder*) VANCO TROUGH ON 10/28... 0300 ONCE XX ; Start 11/16/18 at 03:00; Stop 11/16/18 at 03:01 VIVIENNE COOL NP Nov 15, 2018 13:09
--- NOTE | 2018-11-15 13:43 | PN ---
Date/Time of Note Date/Time of Note DATE: 11/15/18 TIME: 13:40 Assessment/Plan VTE Prophylaxis Risk score (from Ns)>0 risk: 3 SCD applied (from Ns): Yes Pharmacological prophylaxis: heparin Lines/Catheters IV Catheter Type (from Nrs): PICC Line Central line still needed: Yes Urinary Cath still in place: No Assessment/Plan Problems: (1) Diabetes mellitus type 2 in nonobese Status: Chronic Comment: Good control in a controlled environment with controlled diet and controlled administration of medications. We could add in metformin to lower the dosing of the insulin. (2) Osteomyelitis of left foot Status: Chronic Comment: On IV antibiotic therapy. Qualifiers: Osteomyelitis type: other acute Qualified Codes: M86.172 - Other acute osteomyelitis, left ankle and foot (3) Diabetic peripheral neuropathy associated with type 2 diabetes mellitus Status: Chronic Comment: Noted. (4) Essential hypertension Status: Chronic Comment: Upward adjustment on the dosage of the ROBERTA inhibitor lower the hydralazine. Please note the patient develops a cough transition over to angiotensin II receptor brianne (5) Hyperlipidemia Status: Chronic Comment: Full dose fish oil and adding statin Qualifiers: Hyperlipidemia type: mixed hyperlipidemia Qualified Codes: E78.2 - Mixed hyperlipidemia (6) Vitamin D deficiency (7) Anemia Status: Chronic Comment: Inflammation. Qualifiers: Anemia type: unspecified type Qualified Codes: D64.9 - Anemia, unspecified Result Diagram: 11/15/18 0535 11/15/18 0535 Results 24hrs Laboratory Tests Test 11/14/18 17:25 11/14/18 20:55 11/15/18 02:36 11/15/18 05:35 Bedside Glucose 238 H 192 109 White Blood Count 6.9 # Red Blood Count 4.07 L Hemoglobin 8.5 L Hematocrit 27.4 L Mean Corpuscular 67.3 L Volume Mean Corpuscular 20.9 L Hemoglobin Mean Corpuscular 31.0 L Hemoglobin Concent Red Cell 18.8 H Distribution Width Platelet Count 297 Mean Platelet Volume 9.8 Immature 0.100 Granulocytes % Neutrophils % 67.5 Lymphocytes % 24.7 Monocytes % 5.9 Eosinophils % 1.2 Basophils % 0.6 Nucleated Red Blood 0.0 Cells % Immature 0.010 Granulocytes # Neutrophils # 4.7 Lymphocytes # 1.7 Monocytes # 0.4 Eosinophils # 0.1 Basophils # 0.0 Nucleated Red Blood 0.0 Cells # Sodium Level 140 Potassium Level 4.1 Chloride Level 107 Carbon Dioxide Level 24 Anion Gap 9 Blood Urea Nitrogen 16 Creatinine 0.91 Est Glomerular > 60 Filtrat Rate mL/min Glucose Level 112 Calcium Level 9.7 Test 11/15/18 07:50 11/15/18 11:42 Bedside Glucose 105 146 Subjective 24 Hr Interval Summary Free Text/Dictation Patient sleeping in bed reports that she is doing well ENT: no complaints Respiratory: no complaints Cardiovascular: no complaints Exam/Review of Systems Exam Vitals Vital Signs Date Temp Pulse Resp B/P (MAP) Pulse Ox O2 O2 Flow FiO2 Time Delivery Rate 11/15/18 98.1 62 18 157/70 99 Room Air 08:09 (99) Intake and Output 11/14/18 11/14/18 11/15/18 1515:00 23:00 07:00 IntakeIntake Total 670 ml 760 ml 550 ml BalanceBalance 670 ml 760 ml 550 ml Constitutional: alert, oriented Respiratory: clear to auscultation, normal air movement Cardiovascular: regular rate and rhythm, nl pulses Results Results 24hrs Laboratory Tests Test 11/14/18 17:25 11/14/18 20:55 11/15/18 02:36 11/15/18 05:35 Bedside Glucose 238 H 192 109 White Blood Count 6.9 # Red Blood Count 4.07 L Hemoglobin 8.5 L Hematocrit 27.4 L Mean Corpuscular 67.3 L Volume Mean Corpuscular 20.9 L Hemoglobin Mean Corpuscular 31.0 L Hemoglobin Concent Red Cell 18.8 H Distribution Width Platelet Count 297 Mean Platelet Volume 9.8 Immature 0.100 Granulocytes % Neutrophils % 67.5 Lymphocytes % 24.7 Monocytes % 5.9 Eosinophils % 1.2 Basophils % 0.6 Nucleated Red Blood 0.0 Cells % Immature 0.010 Granulocytes # Neutrophils # 4.7 Lymphocytes # 1.7 Monocytes # 0.4 Eosinophils # 0.1 Basophils # 0.0 Nucleated Red Blood 0.0 Cells # Sodium Level 140 Potassium Level 4.1 Chloride Level 107 Carbon Dioxide Level 24 Anion Gap 9 Blood Urea Nitrogen 16 Creatinine 0.91 Est Glomerular > 60 Filtrat Rate mL/min Glucose Level 112 Calcium Level 9.7 Test 11/15/18 07:50 11/15/18 11:42 Bedside Glucose 105 146 Medications Medication Current Medications IV Flush (NS 3 ml) 3 ml PER PROTOCOL IV ; Start 11/11/18 at 07:00 Ondansetron HCl (Zofran Inj) 4 mg Q6H PRN IV NAUSEA/VOMITING; Start 11/11/18 at 07:00 Acetaminophen (Tylenol Tab) 650 mg Q6H PRN PO .PAIN 1-3 OR TEMP; Start 11/11/18 at 07:00 Acetaminophen/ Hydrocodone Bitart ([place] (5/325)) 1 tab Q6H PRN PO .MOD PAIN 4- 6 Last administered on 11/14/18at 04:49; Admin Dose 1 TAB; Start 11/11/18 at 07:00 Docusate Sodium (Colace) 100 mg Q12H PRN PO .CONSTIPATION; Start 11/11/18 at 07:00 Bisacodyl (Dulcolax) 5 mg DAILY PRN PO .CONSTIPATION; Start 11/11/18 at 07:00 Vancomycin HCl (Vanco Iv Per Pharmacy) VANCOMYCIN PER PHARMACY PER PROTOCOL XX ; Start 11/11/18 at 07:00 Pantoprazole (Protonix Tab) 40 mg DAILY@06 PO Last administered on 11/15/18at 05:06; Admin Dose 40 MG; Start 11/12/18 at 06:00 Miscellaneous Information 1 ea NOTE XX ; Start 11/11/18 at 08:00 Glucose (Glutose) 15 gm Q15M PRN PO DECREASED GLUCOSE; Start 11/11/18 at 08:00 Glucose (Glutose) 22.5 gm Q15M PRN PO DECREASED GLUCOSE; Start 11/11/18 at 08:00 Dextrose (D50w Syringe) 25 ml Q15M PRN IV DECREASED GLUCOSE; Start 11/11/18 at 08:00 Dextrose (D50w Syringe) 50 ml Q15M PRN IV DECREASED GLUCOSE; Start 11/11/18 at 08:00 Glucagon (Glucagen) 1 mg Q15M PRN IM DECREASED GLUCOSE; Start 11/11/18 at 08:00 Glucose (Glutose) 15 gm Q15M PRN BUCCAL DECREASED GLUCOSE; Start 11/11/18 at 08:00 Levofloxacin/ Dextrose 150 ml @ 100 mls/hr Q24H IVPB Last administered on 11/14/18at 13:47; Admin Dose 100 MLS/HR; Start 11/11/18 at 14:00 Diagnostic Test (Pha) (Accu-Chek) 1 ea 02 XX Last administered on 11/15/18 02:40; Admin Dose 1 EA; Start 11/12/18 at 02:00 Insulin Aspart (Novolog Insulin Pen) NOVOLOG *MILD* ALGORITHM WITH MEALS BEDTIME SC Last administered on 11/15/18 12:20; Admin Dose 1 UNIT; Start 11/11/18 at 18:05 Hydralazine HCl (Apresoline) 50 mg BID PO Last administered on 11/15/18 08:27; Admin Dose 50 MG; Start 11/11/18 at 21:00 Lisinopril (Zestril) 5 mg BID PO Last administered on 11/15/18 08:27; Admin Dose 5 MG; Start 11/12/18 at 21:00 Metronidazole (Flagyl) 500 mg Q8 PO Last administered on 11/15/18 05:06; Admin Dose 500 MG; Start 11/12/18 at 22:00 Simethicone (Mylicon) 80 mg Q6H PRN PO gas Last administered on 11/13/18 03:06; Admin Dose 80 MG; Start 11/13/18 at 03:00 Enoxaparin Sodium (Lovenox) 30 mg DAILY SC Last administered on 11/15/18 08:28; Admin Dose 30 MG; Start 11/14/18 at 09:00 Fish Oil (Fish Oil) 1,000 mg BID PO Last administered on 11/15/18 08:27; Admin Dose 1,000 MG; Start 11/13/18 at 21:00 Insulin Aspart (Novolog Insulin Pen) 3 unit WITH MEALS SC Last administered on 11/15/18 12:20; Admin Dose 3 UNIT; Start 11/14/18 at 11:30 Insulin Glargine (Lantus) 30 units QHS SC Last administered on 11/14/18 20:58; Admin Dose 30 UNITS; Start 11/14/18 at 21:00 Vancomycin/Sodium Chloride 250 ml @ 125 mls/hr Q12H IVPB Last administered on 11/15/18 03:38; Admin Dose 125 MLS/HR; Start 11/14/18 at 16:00 IV Flush (NS 10 ml) 10 ml PRN PRN IV FLUSH LINE; Start 11/14/18 at 19:00 Miscellaneous Information (*Rx Drug Level Order Reminder*) VANCO TROUGH ON 10/28... 0300 ONCE XX ; Start 11/16/18 at 03:00; Stop 11/16/18 at 03:01 JOVAN MALLOY MD Nov 15, 2018 13:43
[2018-11-15] MEDS: LEVOFLOXACIN 750MG/D5W (PMX) 150 ML IVPB SCH (13:51)
[2018-11-15 14:00] VITALS: BP 120/59; PULSE 72; RESP 17
[2018-11-15 20:16] VITALS: BP 161/72; PULSE 70; RESP 18
[2018-11-15] MEDS: INSULIN GLARGINE [LANTus] (100 UNITS/ML) SYG SC SCH (20:34)
[2018-11-15] MEDS: ATORVASTATIN 10 MG TAB PO SCH (20:37)
[2018-11-15] MEDS ORDERED: LISINOPRIL 20 MG TAB PO SCH (21:00)
[2018-11-15] MEDS ORDERED: FISH OIL 1,000 MG CAP PO ONE (22:01)
[2018-11-16] MEDS: ACCU-CHEK XX SCH (02:00)
[2018-11-16 02:18] VITALS: BP 139/64; PULSE 73; RESP 16
[2018-11-16] MEDS: VANCOMYCIN 750 MG (PMX) 250 ML IVPB SCH ×2 (04:10→16:03)
[2018-11-16] MEDS: PANTOPRAZOLE (EC) 40 MG TAB PO SCH (05:21)
[2018-11-16] MEDS: metroNIDAZOLE 500 MG TAB PO SCH ×3 (05:21→21:34)
[2018-11-16] MEDS: INSULIN ASPART [NOVOLOG] 3 ML PEN SC SCH ×7 (07:35→20:26)
[2018-11-16 08:01] VITALS: BP 136/63; PULSE 62; RESP 16
[2018-11-16] MEDS: ENOXAPARIN 30 MG/0.3 ML SYG SC SCH (08:14)
[2018-11-16] MEDS: FISH OIL 1,000 MG CAP PO SCH ×2 (08:14→20:29)
[2018-11-16] MEDS: LISINOPRIL 10 MG TAB PO SCH ×2 (08:16→20:29)
--- NOTE | 2018-11-16 09:33 | PN ---
Date/Time of Note Date/Time of Note DATE: 11/16/18 TIME: 09:29 Assessment/Plan VTE Prophylaxis Risk score (from Ns)>0 risk: 2 SCD applied (from Ns): Yes Pharmacological prophylaxis: heparin Lines/Catheters IV Catheter Type (from Nrs): PICC Line Central line still needed: Yes Urinary Cath still in place: No Assessment/Plan Problems: (1) Osteomyelitis of left foot Status: Chronic Comment: For surgical intervention tomorrow. Please note the patient does have onychomycosis we will give Lamisil pulse therapy Qualifiers: Osteomyelitis type: other acute Qualified Codes: M86.172 - Other acute osteomyelitis, left ankle and foot (2) Diabetic peripheral neuropathy associated with type 2 diabetes mellitus Status: Chronic Comment: Stable at this time with adequate glycemic control (3) Essential hypertension Status: Chronic Comment: Adequate control blood pressure with current medication regimen (4) Hyperlipidemia Status: Chronic Comment: Continue with statin therapy Qualifiers: Hyperlipidemia type: mixed hyperlipidemia Qualified Codes: E78.2 - Mixed hyperlipidemia (5) Diabetes mellitus type 2 in nonobese Status: Chronic Comment: Adequate glycemic control (6) Anemia Status: Chronic Comment: Due to inflammation from the osteomyelitis Qualifiers: Anemia type: unspecified type Qualified Codes: D64.9 - Anemia, unspecified Result Diagram: 11/15/18 0535 11/16/18 0313 Results 24hrs Laboratory Tests Test 11/15/18 11:42 11/15/18 17:20 11/15/18 20:29 11/16/18 03:13 Bedside Glucose 146 204 135 Erythrocyte 40 H Sedimentation Rate Blood Urea Nitrogen 18 Creatinine 0.95 Vancomycin Level 13.0 Trough Test 11/16/18 07:41 Bedside Glucose 95 Subjective 24 Hr Interval Summary Free Text/Dictation She is more awake and alert today. Reports she is doing well but is nervous for the procedure tomorrow Constitutional: no complaints Respiratory: no complaints Cardiovascular: no complaints Gastrointestinal: no complaints Genitourinary: no complaints Exam/Review of Systems Exam Vitals Vital Signs Date Temp Pulse Resp B/P (MAP) Pulse Ox O2 O2 Flow FiO2 Time Delivery Rate 11/16/18 98.5 62 16 136/63 99 08:01 (87) 11/15/18 Room Air 14:00 Intake and Output 11/15/18 11/15/18 11/16/18 1515:00 23:00 07:00 IntakeIntake Total 600 ml 600 ml 500 ml BalanceBalance 600 ml 600 ml 500 ml Constitutional: alert, oriented Respiratory: clear to auscultation, normal air movement Cardiovascular: regular rate and rhythm, nl pulses Gastrointestinal: soft, nl liver, spleen, non-tender Extremities: other (Onychomycosis) Results Results 24hrs Laboratory Tests Test 11/15/18 11:42 11/15/18 17:20 11/15/18 20:29 11/16/18 03:13 Bedside Glucose 146 204 135 Erythrocyte 40 H Sedimentation Rate Blood Urea Nitrogen 18 Creatinine 0.95 Vancomycin Level 13.0 Trough Test 11/16/18 07:41 Bedside Glucose 95 Medications Medication Current Medications IV Flush (NS 3 ml) 3 ml PER PROTOCOL IV ; Start 11/11/18 at 07:00 Ondansetron HCl (Zofran Inj) 4 mg Q6H PRN IV NAUSEA/VOMITING; Start 11/11/18 at 07:00 Acetaminophen (Tylenol Tab) 650 mg Q6H PRN PO .PAIN 1-3 OR TEMP; Start 11/11/18 at 07:00 Acetaminophen/ Hydrocodone Bitart ([place] (5/325)) 1 tab Q6H PRN PO .MOD PAIN 4- 6 Last administered on 11/14/18at 04:49; Admin Dose 1 TAB; Start 11/11/18 at 07:00 Docusate Sodium (Colace) 100 mg Q12H PRN PO .CONSTIPATION; Start 11/11/18 at 07:00 Bisacodyl (Dulcolax) 5 mg DAILY PRN PO .CONSTIPATION; Start 11/11/18 at 07:00 Vancomycin HCl (Vanco Iv Per Pharmacy) VANCOMYCIN PER PHARMACY PER PROTOCOL XX ; Start 11/11/18 at 07:00 Pantoprazole (Protonix Tab) 40 mg DAILY@06 PO Last administered on 11/16/18at 05:21; Admin Dose 40 MG; Start 11/12/18 at 06:00 Miscellaneous Information 1 ea NOTE XX ; Start 11/11/18 at 08:00 Glucose (Glutose) 15 gm Q15M PRN PO DECREASED GLUCOSE; Start 11/11/18 at 08:00 Glucose (Glutose) 22.5 gm Q15M PRN PO DECREASED GLUCOSE; Start 11/11/18 at 08:00 Dextrose (D50w Syringe) 25 ml Q15M PRN IV DECREASED GLUCOSE; Start 11/11/18 at 08:00 Dextrose (D50w Syringe) 50 ml Q15M PRN IV DECREASED GLUCOSE; Start 11/11/18 at 08:00 Glucagon (Glucagen) 1 mg Q15M PRN IM DECREASED GLUCOSE; Start 11/11/18 at 08:00 Glucose (Glutose) 15 gm Q15M PRN BUCCAL DECREASED GLUCOSE; Start 11/11/18 at 08:00 Levofloxacin/ Dextrose 150 ml @ 100 mls/hr Q24H IVPB Last administered on 11/15/18 13:51; Admin Dose 100 MLS/HR; Start 11/11/18 at 14:00 Diagnostic Test (Pha) (Accu-Chek) 1 ea 02 XX Last administered on 11/15/18 02:40; Admin Dose 1 EA; Start 11/12/18 at 02:00 Insulin Aspart (Novolog Insulin Pen) NOVOLOG *MILD* ALGORITHM WITH MEALS BEDTIM E SC Last administered on 11/15/18 17:22; Admin Dose 2 UNIT; Start 11/11/18 at 18:05 Metronidazole (Flagyl) 500 mg Q8 PO Last administered on 11/16/18 05:21; Admin Dose 500 MG; Start 11/12/18 at 22:00 Simethicone (Mylicon) 80 mg Q6H PRN PO gas Last administered on 11/13/18 03:06; Admin Dose 80 MG; Start 11/13/18 at 03:00 Enoxaparin Sodium (Lovenox) 30 mg DAILY SC Last administered on 11/16/18 08:14; Admin Dose 30 MG; Start 11/14/18 at 09:00 Insulin Aspart (Novolog Insulin Pen) 3 unit WITH MEALS SC Last administered on 11/15/18 17:22; Admin Dose 3 UNIT; Start 11/14/18 at 11:30 Insulin Glargine (Lantus) 30 units QHS SC Last administered on 11/15/18 20:34; Admin Dose 30 UNITS; Start 11/14/18 at 21:00 Vancomycin/Sodium Chloride 250 ml @ 125 mls/hr Q12H IVPB Last administered on 11/16/18 04:10; Admin Dose 125 MLS/HR; Start 11/14/18 at 16:00 IV Flush (NS 10 ml) 10 ml PRN PRN IV FLUSH LINE; Start 11/14/18 at 19:00 Hydralazine HCl (Apresoline) 25 mg BID PO Last administered on 11/16/18 08:16; Admin Dose 25 MG; Start 11/15/18 at 21:00 Lisinopril (Zestril) 20 mg BID PO Last administered on 11/16/18 08:16; Admin Dose 20 MG; Start 11/15/18 at 21:00 Atorvastatin Calcium (Lipitor) 10 mg HS PO Last administered on 11/15/18at 20:37; Admin Dose 10 MG; Start 11/15/18 at 21:00 Fish Oil (Fish Oil) 2,000 mg BID PO Last administered on 11/16/18 08:14; Admin Dose 2,000 MG; Start 11/16/18 at 09:00 JOVAN MALLOY MD Nov 16, 2018 09:33
[2018-11-16] MEDS: TERBINAFINE 250 MG TAB PO SCH ×2 (10:58→20:29)
[2018-11-16] MEDS: LEVOFLOXACIN 750MG/D5W (PMX) 150 ML IVPB SCH (13:31)
[2018-11-16 14:30] VITALS: BP 132/60; PULSE 76; RESP 18
--- NOTE | 2018-11-16 16:58 | CONS ---
Consultation Date/Type/Reason Admit Date/Time Nov 11, 2018 at 06:24 Initial Consult Date SUBJECTIVE: Pt is awake, alert, afebrile. No acute changes. VS: stable T: 98.4 LABS: Reviewed. Microbiology: Blood culture on admission grew coag negative staph species one set. Wound cultures growing Klebsiella oxytoca, enterococcus species, Enterobacter cloaca, KEVIN Antimicrobials: Vancomycin, Levaquin Flagyl Physical examination: GEN:This is well-developed fragile elderly woman who is awake in no distress. HENT: Head atraumatic normocephalic, sclera nonicteric, vehicle mucosa dry, neck is supple PULM: chest rise symmetrical, breath sounds diminished bases. Heart: S1-S2. Abdomen soft bowel sounds present. Extremities with left foot dressing intact Assessment: 1. Left diabetic ulceration with osteomyelitis 2. Diabetes 3. Diarrhea, rule out C. difficile 4. Anemia 5. Peripheral arterial disease 6. Bacteremia, consistent with contaminant Plan: Pt remains stable. Pending DC today. Continue antibiotics for 6 weeks for OM. Podiatry recommendations, s/p PICC. Date/Time of Note DATE: 11/16/18 TIME: 16:55 Exam/Review of Systems Exam Vitals Vital Signs Date Temp Pulse Resp B/P (MAP) Pulse Ox O2 O2 Flow FiO2 Time Delivery Rate 11/16/18 98.4 76 18 132/60 96 14:30 (84) 11/15/18 Room Air 14:00 Intake and Output 11/15/18 11/15/18 11/16/18 1515:00 23:00 07:00 IntakeIntake Total 600 ml 600 ml 500 ml BalanceBalance 600 ml 600 ml 500 ml Results Result Diagram: 11/15/18 0535 11/16/18 0313 Results 24hrs Laboratory Tests Test 11/15/18 17:20 11/15/18 20:29 11/16/18 03:13 11/16/18 07:41 Bedside Glucose 204 135 95 Erythrocyte 40 H Sedimentation Rate Blood Urea Nitrogen 18 Creatinine 0.95 Vancomycin Level 13.0 Trough Test 11/16/18 12:11 Bedside Glucose 241 H Medications Medication Current Medications IV Flush (NS 3 ml) 3 ml PER PROTOCOL IV ; Start 11/11/18 at 07:00 Ondansetron HCl (Zofran Inj) 4 mg Q6H PRN IV NAUSEA/VOMITING; Start 11/11/18 at 07:00 Acetaminophen (Tylenol Tab) 650 mg Q6H PRN PO .PAIN 1-3 OR TEMP; Start 11/11/18 at 07:00 Acetaminophen/ Hydrocodone Bitart ([place] (5/325)) 1 tab Q6H PRN PO .MOD PAIN 4- 6 Last administered on 11/14/18at 04:49; Admin Dose 1 TAB; Start 11/11/18 at 07:00 Docusate Sodium (Colace) 100 mg Q12H PRN PO .CONSTIPATION; Start 11/11/18 at 07:00 Bisacodyl (Dulcolax) 5 mg DAILY PRN PO .CONSTIPATION; Start 11/11/18 at 07:00 Vancomycin HCl (Vanco Iv Per Pharmacy) VANCOMYCIN PER PHARMACY PER PROTOCOL XX ; Start 11/11/18 at 07:00 Pantoprazole (Protonix Tab) 40 mg DAILY@06 PO Last administered on 11/16/18at 05:21; Admin Dose 40 MG; Start 11/12/18 at 06:00 Miscellaneous Information 1 ea NOTE XX ; Start 11/11/18 at 08:00 Glucose (Glutose) 15 gm Q15M PRN PO DECREASED GLUCOSE; Start 11/11/18 at 08:00 Glucose (Glutose) 22.5 gm Q15M PRN PO DECREASED GLUCOSE; Start 11/11/18 at 08:00 Dextrose (D50w Syringe) 25 ml Q15M PRN IV DECREASED GLUCOSE; Start 11/11/18 at 08:00 Dextrose (D50w Syringe) 50 ml Q15M PRN IV DECREASED GLUCOSE; Start 11/11/18 at 08:00 Glucagon (Glucagen) 1 mg Q15M PRN IM DECREASED GLUCOSE; Start 11/11/18 at 08:00 Glucose (Glutose) 15 gm Q15M PRN BUCCAL DECREASED GLUCOSE; Start 11/11/18 at 08:00 Levofloxacin/ Dextrose 150 ml @ 100 mls/hr Q24H IVPB Last administered on 11/16/18at 13:31; Admin Dose 100 MLS/HR; Start 11/11/18 at 14:00 Diagnostic Test (Pha) (Accu-Chek) 1 ea 02 XX Last administered on 11/15/18at 02:40; Admin Dose 1 EA; Start 11/12/18 at 02:00 Insulin Aspart (Novolog Insulin Pen) NOVOLOG *MILD* ALGORITHM WITH MEALS BEDTIME SC Last administered on 11/16/18 12:37; Admin Dose 3 UNIT; Start 11/11/18 at 18:05 Metronidazole (Flagyl) 500 mg Q8 PO Last administered on 11/16/18 13:31; Admin Dose 500 MG; Start 11/12/18 at 22:00 Simethicone (Mylicon) 80 mg Q6H PRN PO gas Last administered on 11/13/18 03:06; Admin Dose 80 MG; Start 11/13/18 at 03:00 Enoxaparin Sodium (Lovenox) 30 mg DAILY SC Last administered on 11/16/18 08:14; Admin Dose 30 MG; Start 11/14/18 at 09:00 Insulin Aspart (Novolog Insulin Pen) 3 unit WITH MEALS SC Last administered on 11/16/18 12:36; Admin Dose 3 UNIT; Start 11/14/18 at 11:30 Insulin Glargine (Lantus) 30 units QHS SC Last administered on 11/15/18 20:34; Admin Dose 30 UNITS; Start 11/14/18 at 21:00 Vancomycin/Sodium Chloride 250 ml @ 125 mls/hr Q12H IVPB Last administered on 11/16/18 16:03; Admin Dose 125 MLS/HR; Start 11/14/18 at 16:00 IV Flush (NS 10 ml) 10 ml PRN PRN IV FLUSH LINE; Start 11/14/18 at 19:00 Hydralazine HCl (Apresoline) 25 mg BID PO Last administered on 11/16/18 08:16; Admin Dose 25 MG; Start 11/15/18 at 21:00 Lisinopril (Zestril) 20 mg BID PO Last administered on 11/16/18 08:16; Admin Dose 20 MG; Start 11/15/18 at 21:00 Atorvastatin Calcium (Lipitor) 10 mg HS PO Last administered on 11/15/18 20:37; Admin Dose 10 MG; Start 11/15/18 at 21:00 Fish Oil (Fish Oil) 2,000 mg BID PO Last administered on 11/16/18 08:14; Admin Dose 2,000 MG; Start 11/16/18 at 09:00 Terbinafine HCl (Lamisil) 250 mg BID PO Last administered on 11/16/18at 10:58; Admin Dose 250 MG; Start 11/16/18 at 10:00; Stop 11/23/18 at 09:59 SERGE REEVES Nov 16, 2018 16:58
[2018-11-16 20:05] VITALS: BP 153/67; PULSE 65; RESP 18
[2018-11-16] MEDS: INSULIN GLARGINE [LANTus] (100 UNITS/ML) SYG SC SCH (20:26)
[2018-11-16] MEDS: ATORVASTATIN 10 MG TAB PO SCH (20:29)
[2018-11-17] VITALS (10 sets, daily range): BP systolic 120–178; BP diastolic 55–76; PULSE 56–68; RESP 13–20
[2018-11-17] MEDS: ACCU-CHEK XX SCH ×2 (00:55→22:42)
[2018-11-17] MEDS: INSULIN ASPART [NOVOLOG] 3 ML PEN SC SCH ×9 (00:59→20:24)
[2018-11-17] MEDS: VANCOMYCIN 750 MG (PMX) 250 ML IVPB SCH ×2 (03:40→16:00)
[2018-11-17] MEDS: metroNIDAZOLE 500 MG TAB PO SCH ×3 (05:25→22:07)
[2018-11-17] MEDS: PANTOPRAZOLE (EC) 40 MG TAB PO SCH (05:25)
[2018-11-17] MEDS: ENOXAPARIN 30 MG/0.3 ML SYG SC SCH (09:00)
[2018-11-17] MEDS: TERBINAFINE 250 MG TAB PO SCH ×2 (09:00→20:23)
[2018-11-17] MEDS: FISH OIL 1,000 MG CAP PO SCH ×2 (09:00→20:23)
[2018-11-17] MEDS: LISINOPRIL 10 MG TAB PO SCH ×2 (09:00→20:23)
--- NOTE | 2018-11-17 12:05 | PN ---
Date/Time of Note Date/Time of Note DATE: 11/17/18 TIME: 11:55 Assessment/Plan VTE Prophylaxis Risk score (from [facility])>0 risk: 2 SCD applied (from [facility]): Yes Pharmacological prophylaxis: other Pharm contraindication: other Lines/Catheters IV Catheter Type (from [facility]): PICC Line Central line still needed: Yes Urinary Cath still in place: No Assessment/Plan Assessment/Plan 1. Left diabetic ulceration with osteomyelitis, on antibiotics, surgery today 2. Diabetes mellitus, stable on insulin 3. Microcytic anemia, follow up with H/H 4. HTN, on lisinopril 5. Dyslipidemia, on lipitor Result Diagram: 11/17/18 0545 11/16/18 0313 Results 24hrs Laboratory Tests Test 11/16/18 12:11 11/16/18 17:21 11/16/18 20:24 11/17/18 00:58 Bedside Glucose 241 H 185 137 129 Test 11/17/18 05:24 11/17/18 05:45 11/17/18 09:25 Bedside Glucose 108 72 White Blood Count 6.7 Red Blood Count 3.90 L Hemoglobin 8.2 L Hematocrit 26.3 L Mean Corpuscular 67.4 L Volume Mean Corpuscular 21.0 L Hemoglobin Mean Corpuscular 31.2 L Hemoglobin Concent Red Cell 19.0 H Distribution Width Platelet Count 269 Mean Platelet Volume 9.9 Immature 0.300 Granulocytes % Neutrophils % 59.7 Lymphocytes % 31.4 Monocytes % 6.1 Eosinophils % 1.9 Basophils % 0.6 Nucleated Red Blood 0.0 Cells % Immature 0.020 Granulocytes # Neutrophils # 4.0 Lymphocytes # 2.1 Monocytes # 0.4 Eosinophils # 0.1 Basophils # 0.0 Nucleated Red Blood 0.0 Cells # Subjective 24 Hr Interval Summary Free Text/Dictation no fever or chills no diarrhea Exam/Review of Systems Exam Vitals Vital Signs Date Temp Pulse Resp B/P (MAP) Pulse Ox O2 O2 Flow FiO2 Time Delivery Rate 11/17/18 99.0 64 17 156/71 99 Room Air 08:05 (99) Intake and Output 11/16/18 11/16/18 11/17/18 1515:00 23:00 07:00 IntakeIntake Total 2200 ml 250 ml BalanceBalance 2200 ml 250 ml Constitutional: alert, oriented, well developed Psych: no complaints, nl mood/affect Head: normocephalic, atraumatic Eyes: nl conjunctiva, EOMI, nl lids ENMT: nl external ears & nose, nl lips & teeth, nl nasal mucosa & septum Neck: supple, non-tender Respiratory: clear to auscultation, normal air movement; No congested cough, No crackles/rales, No diminished breath sounds, No intercostal retraction, No labored breathing, No respirations, No tactile fremitus, No wheezing, No other Cardiovascular: regular rate and rhythm, nl pulses; No bruits, No diastolic murmur, No edema, No gallop, No irregular rhythm, No jugular venous distention (JVD), No murmurs/extra sounds, No rub, No systolic murmur, No S3, No S4, No other Gastrointestinal: soft, nl liver, spleen, non-tender Extremities: other (right foot lesion) Neurological: MANAGER ICU II-XII intact, nl mental status, nl speech, nl strength Results Results 24hrs Laboratory Tests Test 11/16/18 12:11 11/16/18 17:21 11/16/18 20:24 11/17/18 00:58 Bedside Glucose 241 H 185 137 129 Test 11/17/18 05:24 11/17/18 05:45 11/17/18 09:25 Bedside Glucose 108 72 White Blood Count 6.7 Red Blood Count 3.90 L Hemoglobin 8.2 L Hematocrit 26.3 L Mean Corpuscular 67.4 L Volume Mean Corpuscular 21.0 L Hemoglobin Mean Corpuscular 31.2 L Hemoglobin Concent Red Cell 19.0 H Distribution Width Platelet Count 269 Mean Platelet Volume 9.9 Immature 0.300 Granulocytes % Neutrophils % 59.7 Lymphocytes % 31.4 Monocytes % 6.1 Eosinophils % 1.9 Basophils % 0.6 Nucleated Red Blood 0.0 Cells % Immature 0.020 Granulocytes # Neutrophils # 4.0 Lymphocytes # 2.1 Monocytes # 0.4 Eosinophils # 0.1 Basophils # 0.0 Nucleated Red Blood 0.0 Cells # Medications Medication Current Medications IV Flush (NS 3 ml) 3 ml PER PROTOCOL IV ; Start 11/11/18 at 07:00 Ondansetron HCl (Zofran Inj) 4 mg Q6H PRN IV NAUSEA/VOMITING; Start 11/11/18 at 07:00 Acetaminophen (Tylenol Tab) 650 mg Q6H PRN PO .PAIN 1-3 OR TEMP; Start 11/11/18 at 07:00 Acetaminophen/ Hydrocodone Bitart ([place] (5/325)) 1 tab Q6H PRN PO .MOD PAIN 4- 6 Last administered on 11/14/18at 04:49; Admin Dose 1 TAB; Start 11/11/18 at 07:00 Docusate Sodium (Colace) 100 mg Q12H PRN PO .CONSTIPATION; Start 11/11/18 at 07:00 Bisacodyl (Dulcolax) 5 mg DAILY PRN PO .CONSTIPATION; Start 11/11/18 at 07:00 Vancomycin HCl (Vanco Iv Per Pharmacy) VANCOMYCIN PER PHARMACY PER PROTOCOL XX ; Start 11/11/18 at 07:00 Pantoprazole (Protonix Tab) 40 mg DAILY@06 PO Last administered on 11/16/18at 05:21; Admin Dose 40 MG; Start 11/12/18 at 06:00 Miscellaneous Information 1 ea NOTE XX ; Start 11/11/18 at 08:00 Glucose (Glutose) 15 gm Q15M PRN PO DECREASED GLUCOSE; Start 11/11/18 at 08:00 Glucose (Glutose) 22.5 gm Q15M PRN PO DECREASED GLUCOSE; Start 11/11/18 at 08:00 Dextrose (D50w Syringe) 25 ml Q15M PRN IV DECREASED GLUCOSE; Start 11/11/18 at 08:00 Dextrose (D50w Syringe) 50 ml Q15M PRN IV DECREASED GLUCOSE; Start 11/11/18 at 08:00 Glucagon (Glucagen) 1 mg Q15M PRN IM DECREASED GLUCOSE; Start 11/11/18 at 08:00 Glucose (Glutose) 15 gm Q15M PRN BUCCAL DECREASED GLUCOSE; Start 11/11/18 at 08:00 Levofloxacin/ Dextrose 150 ml @ 100 mls/hr Q24H IVPB Last administered on 11/16/18at 13:31; Admin Dose 100 MLS/HR; Start 11/11/18 at 14:00 Diagnostic Test (Pha) (Accu-Chek) 1 ea 02 XX Last administered on 11/15/18at 02:40; Admin Dose 1 EA; Start 11/12/18 at 02:00 Metronidazole (Flagyl) 500 mg Q8 PO Last administered on 11/16/18 21:34; Admin Dose 500 MG; Start 11/12/18 at 22:00 Simethicone (Mylicon) 80 mg Q6H PRN PO gas Last administered on 11/13/18 03:06; Admin Dose 80 MG; Start 11/13/18 at 03:00 Enoxaparin Sodium (Lovenox) 30 mg DAILY SC Last administered on 11/16/18 08:14; Admin Dose 30 MG; Start 11/14/18 at 09:00 Insulin Aspart (Novolog Insulin Pen) 3 unit WITH MEALS SC Last administered on 11/16/18 17:40; Admin Dose 3 UNIT; Start 11/14/18 at 11:30 Insulin Glargine (Lantus) 30 units QHS SC Last administered on 11/16/18 20:26; Admin Dose 30 UNITS; Start 11/14/18 at 21:00 Vancomycin/Sodium Chloride 250 ml @ 125 mls/hr Q12H IVPB Last administered on 11/17/18 03:40; Admin Dose 125 MLS/HR; Start 11/14/18 at 16:00 IV Flush (NS 10 ml) 10 ml PRN PRN IV FLUSH LINE; Start 11/14/18 at 19:00 Hydralazine HCl (Apresoline) 25 mg BID PO Last administered on 11/16/18 20:29; Admin Dose 25 MG; Start 11/15/18 at 21:00 Lisinopril (Zestril) 20 mg BID PO Last administered on 11/16/18 20:29; Admin Dose 20 MG; Start 11/15/18 at 21:00 Atorvastatin Calcium (Lipitor) 10 mg HS PO Last administered on 11/16/18 20:29; Admin Dose 10 MG; Start 11/15/18 at 21:00 Fish Oil (Fish Oil) 2,000 mg BID PO Last administered on 11/16/18 20:29; Admin Dose 2,000 MG; Start 11/16/18 at 09:00 Terbinafine HCl (Lamisil) 250 mg BID PO Last administered on 11/16/18 20:29; Admin Dose 250 MG; Start 11/16/18 at 10:00; Stop 11/23/18 at 09:59 Insulin Aspart (Novolog Insulin Pen) NOVOLOG *MILD* ALGORI... Q4 SC ; Start 11/17/18 at 01:00 LUIZ WATSON MD Nov 17, 2018 12:05
--- NOTE | 2018-11-17 13:18 | HPN ---
Date/Time of Note Date/Time of Note DATE: 11/17/18 TIME: 13:17 Interval H&P Admission Note Pt. seen H&P reviewed: No system changes MEENU PATRICK DPM Nov 17, 2018 13:18
[2018-11-17] MEDS: LEVOFLOXACIN 750MG/D5W (PMX) 150 ML IVPB SCH (14:16)
--- NOTE | 2018-11-17 14:39 | CONS ---
Assessment/Plan Assessment/Plan Hospital Course (Demo Recall) No acute changes, sleeping, looks comfortable, afebrile Microbiology: Blood culture on admission grew coag negative staph species one set. Wound cultures growing Klebsiella oxytoca, enterococcus species, Enterobacter cloaca, KEVIN Antimicrobials: Vancomycin, Levaquin Flagyl Physical examination: This is well-developed fragile elderly woman who is awake in no distress. Head atraumatic normocephalic sclera nonicteric vehicle mucosa dry neck is supple chest rise symmetrical breath sounds diminished bases. Heart: S1-S2. Abdomen soft bowel sounds present. Extremities with left foot dressing intact Assessment: 1. Left diabetic ulceration with osteomyelitis 2. Diabetes 3. Diarrhea, rule out C. difficile 4. Anemia 5. Peripheral arterial disease 6. Bacteremia, consistent with contaminant Plan: Remains stable, continue antibiotics, plan for debridement today Consultation Date/Type/Reason Admit Date/Time Nov 11, 2018 at 06:24 Initial Consult Date Type of Consult id Date/Time of Note DATE: 11/17/18 TIME: 14:38 Exam/Review of Systems Exam Vitals Vital Signs Date Temp Pulse Resp B/P (MAP) Pulse Ox O2 O2 Flow FiO2 Time Delivery Rate 11/17/18 99.0 64 17 156/71 99 Room Air 08:05 (99) Intake and Output 11/16/18 11/16/18 11/17/18 1515:00 23:00 07:00 IntakeIntake Total 2200 ml 250 ml BalanceBalance 2200 ml 250 ml Results Result Diagram: 11/17/18 0545 11/16/18 0313 Results 24hrs Laboratory Tests Test 11/16/18 17:21 11/16/18 20:24 11/17/18 00:58 11/17/18 05:24 Bedside Glucose 185 137 129 108 Test 11/17/18 05:45 11/17/18 09:25 11/17/18 12:08 White Blood Count 6.7 Red Blood Count 3.90 L Hemoglobin 8.2 L Hematocrit 26.3 L Mean Corpuscular 67.4 L Volume Mean Corpuscular 21.0 L Hemoglobin Mean Corpuscular 31.2 L Hemoglobin Concent Red Cell 19.0 H Distribution Width Platelet Count 269 Mean Platelet Volume 9.9 Immature 0.300 Granulocytes % Neutrophils % 59.7 Lymphocytes % 31.4 Monocytes % 6.1 Eosinophils % 1.9 Basophils % 0.6 Nucleated Red Blood 0.0 Cells % Immature 0.020 Granulocytes # Neutrophils # 4.0 Lymphocytes # 2.1 Monocytes # 0.4 Eosinophils # 0.1 Basophils # 0.0 Nucleated Red Blood 0.0 Cells # Bedside Glucose 72 75 Medications Medication Current Medications IV Flush (NS 3 ml) 3 ml PER PROTOCOL IV ; Start 11/11/18 at 07:00 Ondansetron HCl (Zofran Inj) 4 mg Q6H PRN IV NAUSEA/VOMITING; Start 11/11/18 at 07:00 Acetaminophen (Tylenol Tab) 650 mg Q6H PRN PO .PAIN 1-3 OR TEMP; Start 11/11/18 at 07:00 Acetaminophen/ Hydrocodone Bitart ([place] (5/325)) 1 tab Q6H PRN PO .MOD PAIN 4- 6 Last administered on 11/14/18at 04:49; Admin Dose 1 TAB; Start 11/11/18 at 0 7:00 Docusate Sodium (Colace) 100 mg Q12H PRN PO .CONSTIPATION; Start 11/11/18 at 07:00 Bisacodyl (Dulcolax) 5 mg DAILY PRN PO .CONSTIPATION; Start 11/11/18 at 07:00 Vancomycin HCl (Vanco Iv Per Pharmacy) VANCOMYCIN PER PHARMACY PER PROTOCOL XX ; Start 11/11/18 at 07:00 Pantoprazole (Protonix Tab) 40 mg DAILY@06 PO Last administered on 11/16/18at 05:21; Admin Dose 40 MG; Start 11/12/18 at 06:00 Miscellaneous Information 1 ea NOTE XX ; Start 11/11/18 at 08:00 Glucose (Glutose) 15 gm Q15M PRN PO DECREASED GLUCOSE; Start 11/11/18 at 08:00 Glucose (Glutose) 22.5 gm Q15M PRN PO DECREASED GLUCOSE; Start 11/11/18 at 08:00 Dextrose (D50w Syringe) 25 ml Q15M PRN IV DECREASED GLUCOSE; Start 11/11/18 at 08:00 Dextrose (D50w Syringe) 50 ml Q15M PRN IV DECREASED GLUCOSE; Start 11/11/18 at 08:00 Glucagon (Glucagen) 1 mg Q15M PRN IM DECREASED GLUCOSE; Start 11/11/18 at 08:00 Glucose (Glutose) 15 gm Q15M PRN BUCCAL DECREASED GLUCOSE; Start 11/11/18 at 08:00 Levofloxacin/ Dextrose 150 ml @ 100 mls/hr Q24H IVPB Last administered on 11/17/18 14:16; Admin Dose 100 MLS/HR; Start 11/11/18 at 14:00 Diagnostic Test (Pha) (Accu-Chek) 1 ea 02 XX Last administered on 11/15/18 02:40; Admin Dose 1 EA; Start 11/12/18 at 02:00 Metronidazole (Flagyl) 500 mg Q8 PO Last administered on 11/16/18 21:34; Admin Dose 500 MG; Start 11/12/18 at 22:00 Simethicone (Mylicon) 80 mg Q6H PRN PO gas Last administered on 11/13/18 03:06; Admin Dose 80 MG; Start 11/13/18 at 03:00 Enoxaparin Sodium (Lovenox) 30 mg DAILY SC Last administered on 11/16/18 08:14; Admin Dose 30 MG; Start 11/14/18 at 09:00 Insulin Aspart (Novolog Insulin Pen) 3 unit WITH MEALS SC Last administered on 11/16/18 17:40; Admin Dose 3 UNIT; Start 11/14/18 at 11:30 Insulin Glargine (Lantus) 30 units QHS SC Last administered on 11/16/18 20:26; Admin Dose 30 UNITS; Start 11/14/18 at 21:00 Vancomycin/Sodium Chloride 250 ml @ 125 mls/hr Q12H IVPB Last administered on 11/17/18 03:40; Admin Dose 125 MLS/HR; Start 11/14/18 at 16:00 IV Flush (NS 10 ml) 10 ml PRN PRN IV FLUSH LINE; Start 11/14/18 at 19:00 Hydralazine HCl (Apresoline) 25 mg BID PO Last administered on 11/16/18 20:29; Admin Dose 25 MG; Start 11/15/18 at 21:00 Lisinopril (Zestril) 20 mg BID PO Last administered on 11/16/18 20:29; Admin Dose 20 MG; Start 11/15/18 at 21:00 Atorvastatin Calcium (Lipitor) 10 mg HS PO Last administered on 4/21/19at 20:29; Admin Dose 10 MG; Start 11/15/18 at 21:00 Fish Oil (Fish Oil) 2,000 mg BID PO Last administered on 11/16/18at 20:; Admin Dose 2,000 MG; Start 11/16/18 at 09:00 Terbinafine HCl (Lamisil) 250 mg BID PO Last administered on 11/16/18at 20:; Admin Dose 250 MG; Start 11/16/18 at 10:00; Stop 11/23/18 at 09:59 Insulin Aspart (Novolog Insulin Pen) NOVOLOG *MILD* ALGORI... Q4 SC ; Start 11/17/18 at 01:00 VIVIENNE COOL NP Nov 17, 2018 14:39
--- NOTE | 2018-11-17 15:24 | PREAC ---
Date/Time of Note Date/Time of Note DATE: 11/17/18 TIME: 15 Anesthesia Eval and Record Evaluation Time Pre-Procedure Interview DATE: 11/17/18 TIME: 15:22 Age 58 Sex female NPO: 8 hrs Preoperative diagnosis LEFT FOOT DIABETIC ULCER Planned procedure LEFT FOOT WOUND DEBRIDEMENT AND I AND D Past Medical History Past Medical History: Includes Cardio: HTN, Dyslipidemia Endo: Diabetes Musculoskeletal: Osteoarthritis Heme: Anemia Surgery & Anesthesia Issues No known issue Meds Anticoagulation: No Beta Kristen within 24 hr: No Reason Beta Kristen not given: Pt. not on B-Kristen Active Scripts Levofloxacin* (Levofloxacin*) 250 Mg Tablet, 250 MG PO DAILY@06, #38 TAB 6 weeks therapy (already received 4 days). Prov:LAMONT MARTINS RECORDS MANAGEMENT MANAGER 09/05/18 Pantoprazole* (Pantoprazole*) 40 Mg Tablet.dr, 40 MG PO DAILY@06 for 14 Days, #14 Prov:CASSIUS NEGRETE MD 08/26/18 Acetaminophen* (Tylenol*) 325 Mg Tablet, 650 MG PO Q6H PRN for FEVER GREATER THAN 100.6 for 1 Day, #1 TAB Prov:CASSIUS NEGRETE MD 08/26/18 Reported Medications Meclizine Hcl* (Meclizine Hcl*) 25 Mg Tablet, 25 MG PO TID PRN for DIZZINESS, TAB 10/29/18 Hydralazine Hcl* (Hydralazine Hcl*) 100 Mg Tablet, 100 MG PO BID PRN for ELEVATED BLOOD PRESSURE, #90 TAB 10/29/18 Ferrous Sulfate* (Ferrous Sulfate*) 325 Mg Tabec, 325 MG PO DAILY, TAB 10/29/18 Insulin Glargine,Hum.rec.anlog (Basaglar Kwikpen U-100) 100 Unit/1 Ml Insuln.pen, 40 UNIT SC QHS, EA 10/29/18 Insulin Lispro (Humalog Kwikpen) 200 Unit/1 Ml Insuln.pen, 20 UNIT SQ AC BREAKFAST DINNER, EA 10/29/18 Cholecalciferol (Vitamin D3) (Vitamin D-3) 2,000 Unit Tablet, 2000 UNIT PO DAILY, TAB 08/20/18 Glipizide* (Glipizide*) 10 Mg Tablet, 10 MG PO AC BREAKFAST DINNER, TAB 08/20/18 Sitagliptin Phos-Metformin Hcl (Janumet XR) 100-1,000 Mg Tbmp.24hr, 1 TAB PO WITH DINNER, #30 TAB 08/20/18 Lisinopril* (Lisinopril*) 5 Mg Tablet, 5 MG PO BID, #30 TAB 08/20/18 Gabapentin* (Gabapentin*) 100 Mg Capsule, 100 MG PO BID, #90 CAP 08/20/18 Current Medications IV Flush (NS 3 ml) 3 ml PER PROTOCOL IV ; Start 11/11/18 at 07:00 Ondansetron HCl (Zofran Inj) 4 mg Q6H PRN IV NAUSEA/VOMITING; Start 11/11/18 at 07:00 Acetaminophen (Tylenol Tab) 650 mg Q6H PRN PO .PAIN 1-3 OR TEMP; Start 11/11/18 at 07:00 Acetaminophen/ Hydrocodone Bitart ([place] (5/325)) 1 tab Q6H PRN PO .MOD PAIN 4- 6 Last administered on 11/14/18at 04:49; Admin Dose 1 TAB; Start 11/11/18 at 07:00 Docusate Sodium (Colace) 100 mg Q12H PRN PO .CONSTIPATION; Start 11/11/18 at 07:00 Bisacodyl (Dulcolax) 5 mg DAILY PRN PO .CONSTIPATION; Start 11/11/18 at 07:00 Vancomycin HCl (Vanco Iv Per Pharmacy) VANCOMYCIN PER PHARMACY PER PROTOCOL XX ; Start 11/11/18 at 07:00 Pantoprazole (Protonix Tab) 40 mg DAILY@06 PO Last administered on 11/16/18at 05:21; Admin Dose 40 MG; Start 11/12/18 at 06:00 Miscellaneous Information 1 ea NOTE XX ; Start 11/11/18 at 08:00 Glucose (Glutose) 15 gm Q15M PRN PO DECREASED GLUCOSE; Start 11/11/18 at 08:00 Glucose (Glutose) 22.5 gm Q15M PRN PO DECREASED GLUCOSE; Start 11/11/18 at 08:00 Dextrose (D50w Syringe) 25 ml Q15M PRN IV DECREASED GLUCOSE; Start 11/11/18 at 08:00 Dextrose (D50w Syringe) 50 ml Q15M PRN IV DECREASED GLUCOSE; Start 11/11/18 at 08:00 Glucagon (Glucagen) 1 mg Q15M PRN IM DECREASED GLUCOSE; Start 11/11/18 at 08:00 Glucose (Glutose) 15 gm Q15M PRN BUCCAL DECREASED GLUCOSE; Start 11/11/18 at 08:00 Levofloxacin/ Dextrose 150 ml @ 100 mls/hr Q24H IVPB Last administered on 11/17/18 14:16; Admin Dose 100 MLS/HR; Start 11/11/18 at 14:00 Diagnostic Test (Pha) (Accu-Chek) 1 ea 02 XX Last administered on 11/15/18 02:40; Admin Dose 1 EA; Start 11/12/18 at 02:00 Metronidazole (Flagyl) 500 mg Q8 PO Last administered on 11/16/18 21:34; Admin Dose 500 MG; Start 11/12/18 at 22:00 Simethicone (Mylicon) 80 mg Q6H PRN PO gas Last administered on 11/13/18 03:06; Admin Dose 80 MG; Start 11/13/18 at 03:00 Enoxaparin Sodium (Lovenox) 30 mg DAILY SC Last administered on 11/16/18 08:14; Admin Dose 30 MG; Start 11/14/18 at 09:00 Insulin Aspart (Novolog Insulin Pen) 3 unit WITH MEALS SC Last administered on 11/16/18 17:40; Admin Dose 3 UNIT; Start 11/14/18 at 11:30 Insulin Glargine (Lantus) 30 units QHS SC Last administered on 11/16/18 20:26; Admin Dose 30 UNITS; Start 11/14/18 at 21:00 Vancomycin/Sodium Chloride 250 ml @ 125 mls/hr Q12H IVPB Last administered on 11/17/18 03:40; Admin Dose 125 MLS/HR; Start 11/14/18 at 16:00 IV Flush (NS 10 ml) 10 ml PRN PRN IV FLUSH LINE; Start 11/14/18 at 19:00 Hydralazine HCl (Apresoline) 25 mg BID PO Last administered on 11/16/18 20:29; Admin Dose 25 MG; Start 11/15/18 at 21:00 Lisinopril (Zestril) 20 mg BID PO Last administered on 11/16/18 20:29; Admin Dose 20 MG; Start 11/15/18 at 21:00 Atorvastatin Calcium (Lipitor) 10 mg HS PO Last administered on 11/16/18at 20:29; Admin Dose 10 MG; Start 11/15/18 at 21:00 Fish Oil (Fish Oil) 2,000 mg BID PO Last administered on 11/16/18at 20:29; Admin Dose 2,000 MG; Start 11/16/18 at 09:00 Terbinafine HCl (Lamisil) 250 mg BID PO Last administered on 11/16/18at 20:29; Admin Dose 250 MG; Start 11/16/18 at 10:00; Stop 11/23/18 at 09:59 Insulin Aspart (Novolog Insulin Pen) NOVOLOG *MILD* ALGORI... Q4 SC ; Start 11/17/18 at 01:00 Meds reviewed: Yes Allergies Coded Allergies: aspirin (Verified Allergy, Unknown, itching, 11/11/18) Allergies Reviewed: Yes Labs/Studies Labs Reviewed: Reviewed by anesthesiologist Result Diagram: 11/17/18 0545 11/16/18 0313 Laboratory Tests 11/17/18 05:45 test: N/A Studies: ECG, CXR Pre-procedure Exam Last vitals Vital Signs Date Temp Pulse Resp B/P (MAP) Pulse Ox O2 O2 Flow FiO2 Time Delivery Rate 11/17/18 98.7 62 17 137/63 95 14:00 (87) 11/17/18 Room Air 08:05 Airway: Adequate mouth opening, Adequate thyromental dist Mallampati: Mallampati I Teeth: Normal Lung: Normal Heart: Normal ASA Physical Status ASA physical status: 3 Emergency: None Planned Anesthetic General/MAC: LMA Planned Pain Management Parenteral pain med Pre-operative Attestations Prior to commencing anesthesia and surgery, the patient was re-evaluated, there was verification of: *The patient's identity *The results of appropriate recent lab work and preoperative vital signs *The above evaluation not changing prior to induction *Anesthetic plan, risk benefits, alternative and complications discussed with patient/family; questions answered; patient/family understands, accepts and wishes to proceed. ELKIN PRICE Nov 17, 2018 15:24
[2018-11-17] MEDS ORDERED: BUPIVACAINE 0.5% (SDV) 30 ML INJ ONE (15:51)
[2018-11-17] MEDS ORDERED: PROPOFOL 20 ML ONE (16:09)
[2018-11-17] MEDS ORDERED: LIDOCAINE 2% (SDV) 5 ML INJ ONE (16:09)
[2018-11-17] MEDS ORDERED: MIDAZOLAM 1 MG/ML 2 ML INJ ONE (16:15)
--- NOTE | 2018-11-17 16:57 | SIPON ---
Date/Time of Note Date/Time of Note DATE: 11/17/18 TIME: 16:54 Operative Report Preoperative Diagnosis Osteomyelitis 1st met. left foot. Postoperative Diagnosis Same. Operation/Procedure Performed Debridement of the osteomyelitic bone. application of allograft. Surgeon see signature line culture media laboratory assistant none. Anesthesia: MAC Estimated blood loss: minimal Transfusion Required none Specimen Osteomyelitc bone 1st Met. Grafts/Implants none Complications none MEENU PATRICK DPM Nov 17, 2018 16:57
--- NOTE | 2018-11-17 17:03 | PAC ---
Date/Time of Note Date/Time of Note DATE: 11/17/18 TIME: 17:03 Post-Anesthesia Notes Post-Anesthesia Note Last documented vital signs Vital Signs Date Temp Pulse Resp B/P (MAP) Pulse Ox O2 O2 Flow FiO2 Time Delivery Rate 11/17/18 98.7 62 17 137/63 95 1700 (87) 11/17/18 Room Air 08:05 Activity: WNL Respiratory function: WNL Cardiovascular function: WNL Mental status: Baseline Pain reasonably controlled: Yes Hydration appropriate: Yes Nausea/Vomiting absent: Yes ELKIN PRICE Nov 17, 2018 17:03
[2018-11-17] MEDS ORDERED: FENTAnyl 50 MCG/ML VIAL IV PRN ×3 (17:30)
[2018-11-17] MEDS ORDERED: ALBUTEROL 0.083% (NEB) 2.5 MG/3 ML AMP HHN PRN (17:30)
[2018-11-17] MEDS ORDERED: MEPERIDINE 25 MG INJ IV PRN (17:30)
[2018-11-17] MEDS ORDERED: hydrALAzine 20 MG INJ IV PRN (17:30)
[2018-11-17] MEDS ORDERED: ONDANSETRON (ODT) 4 MG TAB ODT PRN (17:30)
[2018-11-17] MEDS ORDERED: EPHEDrine SULFATE 50 MG/5 ML SYG IV PRN (17:30)
[2018-11-17] MEDS ORDERED: LABETALOL HCL 20MG INJ IV PRN (17:30)
[2018-11-17] MEDS ORDERED: DIPHENHYDRAMINE 50 MG INJ IV PRN (17:30)
[2018-11-17] MEDS ORDERED: ONDANSETRON 4 MG INJ IV PRN (17:30)
[2018-11-17] MEDS ORDERED: HYDROCODONE/APAP (10/325) TAB PO PRN (17:30)
[2018-11-17] MEDS ORDERED: OXYCODONE/ACETAMINOPHEN (5/325) TAB PO PRN ×2 (17:30)
[2018-11-17] MEDS ORDERED: KETOROLAC 30 MG INJ IV PRN (17:30)
--- NOTE | 2018-11-17 18:19 | OPR ---
DATE OF OPERATION: 11/17/2018 PREOPERATIVE DIAGNOSIS: Osteomyelitis of the first metatarsal of the left foot. POSTOPERATIVE DIAGNOSIS: Osteomyelitis of the first metatarsal of the left foot. ANESTHESIA: MAC with local. PROCEDURE: Debridement of osteomyelitic bone of the first metatarsal and application of allograft of the first metatarsal. OPERATION: The patient was brought in the OR and approximately 10 mL of 0.5% plain Marcaine was util ized circumferentially around the first metatarsophalangeal joint region of the left foot. After ane sthesia was achieved, the tourniquet was applied around the left ankle. The foot and ankle was exsan guinated and the tourniquet was elevated to approximately 250 mmHg. Attention was then directed to t he medial aspect of the first metatarsophalangeal joint region. Utilizing a #15 blade circumferentia lly around the wound which was up for approximately 4 x 2 x 2 cm deep, the #15 blade was utilized to debride the necrotic tissue around the edges of the ulceration. Sharp and blunt dissection were then utilized. A culture was taken, both aerobic and anaerobic was taken at this point. The appearance of the head of the first metatarsal approximately 0.5 cm area to the articular cartilage area demonst rated osteomyelitic changes clinically. Utilizing the sagittal saw, the head of the first metatarsal was removed in toto. The area was then copiously lavaged with antibiotic solution. Care was taken to debride any necrotic tissue and all was sent to pathology for gross analysis. After lavaging the area, application of allograft was utilized, Cytal, into the surgical deficit. A 2 g of ACell MicroM atrix powder paste was applied. In addition, a 7 x 10 cm ACell sheet was utilized and also some Matr ix was utilized over the area. After this was applied to the surgical deficit, the area was then zachary ssed with Adaptic, Telfa and gauze. A rolled gauze was then applied around the area. It should be n oted that 2 sutures of nylon was utilized to both the proximal and distal aspect of the wound to hold the allograft material in place. Also, skin johnson were utilized to hold the Telfa in place as wel l as the Adaptic. The whole foot was then wrapped with a rolled gauzed. Then, bias was applied arou nd the area and tape was applied. The tourniquet was released and normoactive hyperemia was noted to all the digits of the left foot. This patient tolerated the procedure well and left the OR in stabl e condition. There was minimal blood loss noted during the procedure. No complications were noted i ntraoperatively. Dictated By: MEENU PATRICK MD RS/NTS Conf#: [id number] DID#: [id number]
[2018-11-17] MEDS: ATORVASTATIN 10 MG TAB PO SCH (20:23)
[2018-11-17] MEDS: INSULIN GLARGINE [LANTus] (100 UNITS/ML) SYG SC SCH (20:27)
[2018-11-18 01:55] VITALS: BP 132/61; PULSE 63; RESP 16
[2018-11-18] MEDS: VANCOMYCIN 750 MG (PMX) 250 ML IVPB SCH ×2 (04:02→16:28)
[2018-11-18] MEDS: PANTOPRAZOLE (EC) 40 MG TAB PO SCH (05:53)
[2018-11-18] MEDS: metroNIDAZOLE 500 MG TAB PO SCH (05:53)
[2018-11-18 08:00] VITALS: BP 152/67; PULSE 59; RESP 20
[2018-11-18] MEDS: INSULIN ASPART [NOVOLOG] 3 ML PEN SC SCH ×7 (08:00→20:26)
[2018-11-18] MEDS: TERBINAFINE 250 MG TAB PO SCH ×2 (09:29→20:23)
[2018-11-18] MEDS: LISINOPRIL 10 MG TAB PO SCH ×2 (09:29→20:24)
[2018-11-18] MEDS: FISH OIL 1,000 MG CAP PO SCH ×2 (09:29→20:23)
[2018-11-18] MEDS: ENOXAPARIN 30 MG/0.3 ML SYG SC SCH (09:30)
[2018-11-18] MEDS ORDERED: ATOR10TA65 PO (11:14)
[2018-11-18] MEDS ORDERED: LEVO500T48 PO (11:14)
[2018-11-18] MEDS ORDERED: VANC750P8 IV (11:14)
--- NOTE | 2018-11-18 11:24 | DS ---
Date/Time of Note Date/Time of Note DATE: 11/18/18 TIME: 11:18 Discharge Summary Admission/Discharge Info Admit Date/Time Nov 11, 2018 at 06:24 Discharge Date/Time Discharge Diagnosis 1. Left diabetic ulceration with osteomyelitis, s/p debridement on 11/17/2018, stable, antibiotics for 6 weeks 2. Diabetes mellitus, stable on insulin 3. Microcytic anemia, follow up with PCP 4. HTN, on lisinopril 5. Dyslipidemia, on lipitor Patient Condition: Stable Procedures Debridement of osteomyelitic bone of the first metatarsal and application of allograft of the first metatarsal., 11/17/2018 Hospital Course This is a 58-year-old female with type 2 diabetes, hypertension, iron deficient anemia, diabetic foot ulceration, history of multiple toe amputations, neuropathy, history of osteomyelitis, admitted with left foot diabetic ulcer with draining. Apparently, patient had recent left foot/toe debridement about 2 weeks ago and was seen by her clinical research assistant in the clinic last week and her sutures were removed. Wound remained open since sutures were taken out and then it started to drain yellow secretions for which she decided to come back to the emergency room. Patient denied chest pain, dizziness, shortness of breath, nausea, vomiting, abdominal pain, loss of consciousness, dizziness, speech difficulties, vision changes, numbness, tingling or other constitutional symptoms. Initial labs hemoglobin 8.4, hematocrit 27.9, potassium 5.4. Did not show any acute process or evidence of osteomyelitis. Venous ultrasound was negative for DVT. Osteomyelitis centered at the first MTP joint involving the first metatarsal and proximal phalanx with adjacent soft tissue wound/ulcer, patient has been on levaquin and vancomycin. She got Debridement of osteomyelitic bone of the first metatarsal and application of allograft of the first metatarsal on 11/17/2018 without complication. She is afebrile. She will be on antibiotics for 6 weeks and she will be followed by home health with wound care and iv antibiotics. She will follow up with PCP and podiatry in one week. Home Meds Active Scripts Levofloxacin* (Levaquin*) 500 Mg Tablet, 500 MG PO DAILY for 42 Days, TAB Prov:LUIZ WATSON MD 11/18/18 Atorvastatin (Atorvastatin) 10 Mg Tablet, 10 MG PO HS for 30 Days, TAB Prov:LUIZ WATSON MD 11/18/18 Vancomycin HCl in Dextrose 5 % (Vancomycin 750 mg/250 ml-D5w) 750 Mg/250 Ml Plast..bag, 750 MG IV BID for 42 Days Prov:LUIZ WATSON MD 11/18/18 Levofloxacin* (Levofloxacin*) 250 Mg Tablet, 250 MG PO DAILY@06, #38 TAB 6 weeks therapy (already received 4 days). Prov:LAMONT MARTINS NP 09/05/18 Pantoprazole* (Pantoprazole*) 40 Mg Tablet.dr, 40 MG PO DAILY@06 for 14 Days, #14 Prov:CASSIUS NEGRETE MD 08/26/18 Acetaminophen* (Tylenol*) 325 Mg Tablet, 650 MG PO Q6H PRN for FEVER GREATER THAN 100.6 for 1 Day, #1 TAB Prov:CASSIUS NEGRETE MD 08/26/18 Reported Medications Meclizine Hcl* (Meclizine Hcl*) 25 Mg Tablet, 25 MG PO TID PRN for DIZZINESS, TAB 10/29/18 Hydralazine Hcl* (Hydralazine Hcl*) 100 Mg Tablet, 100 MG PO BID PRN for ELEVATED BLOOD PRESSURE, #90 TAB 10/29/18 Ferrous Sulfate* (Ferrous Sulfate*) 325 Mg Tabec, 325 MG PO DAILY, TAB 10/29/18 Insulin Glargine,Hum.rec.anlog (Basaglar Kwikpen U-100) 100 Unit/1 Ml Insuln.pen, 40 UNIT SC QHS, EA 10/29/18 Insulin Lispro (Humalog Kwikpen) 200 Unit/1 Ml Insuln.pen, 20 UNIT SQ AC BREAKFAST DINNER, EA 10/29/18 Cholecalciferol (Vitamin D3) (Vitamin D-3) 2,000 Unit Tablet, 2000 UNIT PO DAILY, TAB 08/20/18 Glipizide* (Glipizide*) 10 Mg Tablet, 10 MG PO AC BREAKFAST DINNER, TAB 08/20/18 Sitagliptin Phos-Metformin Hcl (Janumet XR) 100-1,000 Mg Tbmp.24hr, 1 TAB PO WITH DINNER, #30 TAB 08/20/18 Lisinopril* (Lisinopril*) 5 Mg Tablet, 5 MG PO BID, #30 TAB 08/20/18 Gabapentin* (Gabapentin*) 100 Mg Capsule, 100 MG PO BID, #90 CAP 08/20/18 Follow-up Plan PCP and podiatry in one week home health Primary Care Provider [facility] Pending Labs Laboratory Tests Test 11/17/18 12:08 11/17/18 15:57 11/17/18 18:09 11/17/18 20:22 Bedside 75 86 102 123 Glucose mg/dL (70-220) mg/dL (70-220) mg/dL (70-220) mg/dL (70-220) Test 11/18/18 04:29 11/18/18 08:15 11/18/18 08:41 11/18/18 09:16 Blood Urea 16 mg/dl (7-20) Nitrogen Creatinine 0.87 mg/dl (0.44-1.0 0) Bedside 69 84 148 Glucose mg/dL (70-220) mg/dL (70-220) mg/dL (70-220) LUIZ WATSON MD Nov 18, 2018 11:24
--- NOTE | 2018-11-18 12:37 | CONS ---
Assessment/Plan Assessment/Plan Hospital Course (Demo Recall) No acute changes Microbiology: Blood culture on admission grew coag negative staph species one set. Wound cultures growing Klebsiella oxytoca, enterococcus species, Enterobacter cloaca, KEVIN Antimicrobials: Vancomycin, Levaquin Flagyl Physical examination: This is well-developed fragile elderly woman who is awake in no distress. Head atraumatic normocephalic sclera nonicteric vehicle mucosa dry neck is supple chest rise symmetrical breath sounds diminished bases. Heart: S1-S2. Abdomen soft bowel sounds present. Extremities with left foot dressing intact Assessment: 1. Left diabetic ulceration with osteomyelitis 2. Diabetes 3. Diarrhea, rule out C. difficile 4. Anemia 5. Peripheral arterial disease 6. Bacteremia, consistent with contaminant Plan: S/p debridement 11/17, pending dc on current abx for 6 weeks, pt to f/u with podiatry for further rec-s, dc Flagyl Consultation Date/Type/Reason Admit Date/Time Nov 11, 2018 at 06:24 Initial Consult Date Type of Consult id Date/Time of Note DATE: 11/18/18 TIME: 12:35 Exam/Review of Systems Exam Vitals Vital Signs Date Temp Pulse Resp B/P (MAP) Pulse Ox O2 O2 Flow FiO2 Time Delivery Rate 11/18/18 98.6 59 20 152/67 97 08:00 (95) 11/17/18 Room Air 17:14 Intake and Output 11/17/18 11/17/18 11/18/18 1515:00 23:00 07:00 IntakeIntake Total 350 ml 350 ml BalanceBalance 350 ml 350 ml Results Result Diagram: 11/17/18 0545 11/18/18 0429 Results 24hrs Laboratory Tests Test 11/17/18 15:57 11/17/18 18:09 11/17/18 20:22 11/18/18 04:29 Bedside Glucose 86 102 123 Blood Urea Nitrogen 16 Creatinine 0.87 Test 11/18/18 08:15 11/18/18 08:41 11/18/18 09:16 11/18/18 12:09 Bedside Glucose 69 L 84 148 196 Medications Medication Current Medications IV Flush (NS 3 ml) 3 ml PER PROTOCOL IV ; Start 11/11/18 at 07:00 Ondansetron HCl (Zofran Inj) 4 mg Q6H PRN IV NAUSEA/VOMITING; Start 11/11/18 at 07:00 Acetaminophen (Tylenol Tab) 650 mg Q6H PRN PO .PAIN 1-3 OR TEMP; Start 11/11/18 at 07:00 Acetaminophen/ Hydrocodone Bitart ([place] (5/325)) 1 tab Q6H PRN PO .MOD PAIN 4- 6 Last administered on 11/14/18at 04:49; Admin Dose 1 TAB; Start 11/11/18 at 07:00 Docusate Sodium (Colace) 100 mg Q12H PRN PO .CONSTIPATION; Start 11/11/18 at 07:00 Bisacodyl (Dulcolax) 5 mg DAILY PRN PO .CONSTIPATION; Start 11/11/18 at 07:00 Vancomycin HCl (Vanco Iv Per Pharmacy) VANCOMYCIN PER PHARMACY PER PROTOCOL XX ; Start 11/11/18 at 07:00 Pantoprazole (Protonix Tab) 40 mg DAILY@06 PO Last administered on 11/18/18at 05:53; Admin Dose 40 MG; Start 11/12/18 at 06:00 Miscellaneous Information 1 ea NOTE XX ; Start 11/11/18 at 08:00 Glucose (Glutose) 15 gm Q15M PRN PO DECREASED GLUCOSE; Start 11/11/18 at 08:00 Glucose (Glutose) 22.5 gm Q15M PRN PO DECREASED GLUCOSE; Start 11/11/18 at 08:00 Dextrose (D50w Syringe) 25 ml Q15M PRN IV DECREASED GLUCOSE; Start 11/11/18 at 08:00 Dextrose (D50w Syringe) 50 ml Q15M PRN IV DECREASED GLUCOSE; Start 11/11/18 at 08:00 Glucagon (Glucagen) 1 mg Q15M PRN IM DECREASED GLUCOSE; Start 11/11/18 at 08:00 Glucose (Glutose) 15 gm Q15M PRN BUCCAL DECREASED GLUCOSE; Start 11/11/18 at 08:00 Levofloxacin/ Dextrose 150 ml @ 100 mls/hr Q24H IVPB Last administered on 11/17/18at 14:16; Admin Dose 100 MLS/HR; Start 11/11/18 at 14:00 Metronidazole (Flagyl) 500 mg Q8 PO Last administered on 11/18/18at 05:53; Admin Dose 500 MG; Start 11/12/18 at 22:00 Simethicone (Mylicon) 80 mg Q6H PRN PO gas Last administered on 11/13/18 03:06; Admin Dose 80 MG; Start 11/13/18 at 03:00 Enoxaparin Sodium (Lovenox) 30 mg DAILY SC Last administered on 11/18/18 09:30; Admin Dose 30 MG; Start 11/14/18 at 09:00 Insulin Aspart (Novolog Insulin Pen) 3 unit WITH MEALS SC Last administered on 11/18/18 12:16; Admin Dose 3 UNIT; Start 11/14/18 at 11:30 Insulin Glargine (Lantus) 30 units QHS SC Last administered on 11/17/18 20:27; Admin Dose 30 UNITS; Start 11/14/18 at 21:00 Vancomycin/Sodium Chloride 250 ml @ 125 mls/hr Q12H IVPB Last administered on 11/18/18 04:02; Admin Dose 125 MLS/HR; Start 11/14/18 at 16:00 IV Flush (NS 10 ml) 10 ml PRN PRN IV FLUSH LINE; Start 11/14/18 at 19:00 Hydralazine HCl (Apresoline) 25 mg BID PO Last administered on 11/18/18 09:27; Admin Dose 25 MG; Start 11/15/18 at 21:00 Lisinopril (Zestril) 20 mg BID PO Last administered on 11/18/18 09:29; Admin Dose 20 MG; Start 11/15/18 at 21:00 Atorvastatin Calcium (Lipitor) 10 mg HS PO Last administered on 11/17/18 20:23; Admin Dose 10 MG; Start 11/15/18 at 21:00 Fish Oil (Fish Oil) 2,000 mg BID PO Last administered on 11/18/18 09:29; Admin Dose 2,000 MG; Start 11/16/18 at 09:00 Terbinafine HCl (Lamisil) 250 mg BID PO Last administered on 11/18/18 09:29; Admin Dose 250 MG; Start 11/16/18 at 10:00; Stop 11/23/18 at 09:59 Acetaminophen/ Hydrocodone Bitart ([place] (10/325)) 1 tab Q6H PRN PO PAIN LEVEL 4-7; Start 11/17/18 at 17:30 Ondansetron HCl (Zofran Odt) 8 mg Q6H PRN ODT NAUSEA AND/OR VOMITING; Start 11/17/18 at 17:30 Diagnostic Test (Pha) (Accu-Chek) 1 02 XX ; Start 11/18/18 at 02:00 Insulin Aspart (Novolog Insulin Pen) NOVOLOG *MILD* ALGORITHM WITH MEALS BEDTIME SC Last administered on 11/18/18at 12:17; Admin Dose 2 UNIT; Start 11/17/18 at 21:00 VIVIENNE COOL NP Nov 18, 2018 12:37
[2018-11-18] MEDS: LEVOFLOXACIN 750MG/D5W (PMX) 150 ML IVPB SCH (13:48)
[2018-11-18 14:00] VITALS: BP 154/70; PULSE 70; RESP 18
--- NOTE | 2018-11-18 17:58 | CONS ---
Assessment/Plan Assessment/Plan Assessment/Plan (Daily) Pt. has no fever, chills or nausea. Dressing is intact. Will remain in place for 10 days. Will follow in [facility]. 11/26/2018. Pt. can be discharged from Podiatry point of view. She will utilize walker partial weightbearing on heel. Continue IV antibiotics as directed. Consultation Date/Type/Reason Admit Date/Time Nov 11, 2018 at 06:24 Initial Consult Date Date/Time of Note DATE: 11/18/18 TIME: 17:53 Exam/Review of Systems Exam Vitals Vital Signs Date Temp Pulse Resp B/P (MAP) Pulse Ox O2 O2 Flow FiO2 Time Delivery Rate 11/18/18 98.6 70 18 154/70 96 14:00 (98) 11/17/18 Room Air 17:14 Intake and Output 11/17/18 11/17/18 11/18/18 1414:59 22:59 06:59 IntakeIntake Total 350 ml 350 ml BalanceBalance 350 ml 350 ml Results Result Diagram: 11/17/18 0545 11/18/18 0429 Results 24hrs Laboratory Tests Test 11/17/18 18:09 11/17/18 20:22 11/18/18 04:29 11/18/18 08:15 Bedside Glucose 102 123 69 L Blood Urea Nitrogen 16 Creatinine 0.87 Test 11/18/18 08:41 11/18/18 09:16 11/18/18 12:09 Bedside Glucose 84 148 196 Medications Medication Current Medications IV Flush (NS 3 ml) 3 ml PER PROTOCOL IV ; Start 11/11/18 at 07:00 Ondansetron HCl (Zofran Inj) 4 mg Q6H PRN IV NAUSEA/VOMITING; Start 11/11/18 at 07:00 Acetaminophen (Tylenol Tab) 650 mg Q6H PRN PO .PAIN 1-3 OR TEMP; Start 11/11/18 at 07:00 Acetaminophen/ Hydrocodone Bitart (Mcpherson (5/325)) 1 tab Q6H PRN PO .MOD PAIN 4- 6 Last administered on 11/14/18at 04:49; Admin Dose 1 TAB; Start 11/11/18 at 07:00 Docusate Sodium (Colace) 100 mg Q12H PRN PO .CONSTIPATION; Start 11/11/18 at 07:00 Bisacodyl (Dulcolax) 5 mg DAILY PRN PO .CONSTIPATION; Start 11/11/18 at 07:00 Vancomycin HCl (Vanco Iv Per Pharmacy) VANCOMYCIN PER PHARMACY PER PROTOCOL XX ; Start 11/11/18 at 07:00 Pantoprazole (Protonix Tab) 40 mg DAILY@06 PO Last administered on 11/18/18at 05:53; Admin Dose 40 MG; Start 11/12/18 at 06:00 Miscellaneous Information 1 ea NOTE XX ; Start 11/11/18 at 08:00 Glucose (Glutose) 15 gm Q15M PRN PO DECREASED GLUCOSE; Start 11/11/18 at 08:00 Glucose (Glutose) 22.5 gm Q15M PRN PO DECREASED GLUCOSE; Start 11/11/18 at 08:00 Dextrose (D50w Syringe) 25 ml Q15M PRN IV DECREASED GLUCOSE; Start 11/11/18 at 08:00 Dextrose (D50w Syringe) 50 ml Q15M PRN IV DECREASED GLUCOSE; Start 11/11/18 at 08:00 Glucagon (Glucagen) 1 mg Q15M PRN IM DECREASED GLUCOSE; Start 11/11/18 at 08:00 Glucose (Glutose) 15 gm Q15M PRN BUCCAL DECREASED GLUCOSE; Start 11/11/18 at 08:00 Levofloxacin/ Dextrose 150 ml @ 100 mls/hr Q24H IVPB Last administered on 11/18/18at 13:48; Admin Dose 100 MLS/HR; Start 11/11/18 at 14:00 Simethicone (Mylicon) 80 mg Q6H PRN PO gas Last administered on 11/13/18at 03:06; Admin Dose 80 MG; Start 11/13/18 at 03:00 Enoxaparin Sodium (Lovenox) 30 mg DAILY SC Last administered on 11/18/18at 09:30; Admin Dose 30 MG; Start 11/14/18 at 09:00 Insulin Aspart (Novolog Insulin Pen) 3 unit WITH MEALS SC Last administered on 11/18/18at 12:16; Admin Dose 3 UNIT; Start 11/14/18 at 11:30 Insulin Glargine (Lantus) 30 units QHS SC Last administered on 11/17/18at 20:27; Admin Dose 30 UNITS; Start 11/14/18 at 21:00 Vancomycin/Sodium Chloride 250 ml @ 125 mls/hr Q12H IVPB Last administered on 11/18/18 16:28; Admin Dose 125 MLS/HR; Start 11/14/18 at 16:00 IV Flush (NS 10 ml) 10 ml PRN PRN IV FLUSH LINE; Start 11/14/18 at 19:00 Hydralazine HCl (Apresoline) 25 mg BID PO Last administered on 11/18/18 09:27; Admin Dose 25 MG; Start 11/15/18 at 21:00 Lisinopril (Zestril) 20 mg BID PO Last administered on 11/18/18 09:29; Admin Dose 20 MG; Start 11/15/18 at 21:00 Atorvastatin Calcium (Lipitor) 10 mg HS PO Last administered on 11/17/18 20:23; Admin Dose 10 MG; Start 11/15/18 at 21:00 Fish Oil (Fish Oil) 2,000 mg BID PO Last administered on 11/18/18 09:29; Admin Dose 2,000 MG; Start 11/16/18 at 09:00 Terbinafine HCl (Lamisil) 250 mg BID PO Last administered on 11/18/18 09:29; Admin Dose 250 MG; Start 11/16/18 at 10:00; Stop 11/23/18 at 09:59 Acetaminophen/ Hydrocodone Bitart (Mcpherson (10/325)) 1 tab Q6H PRN PO PAIN LEVEL 4-7; Start 11/17/18 at 17:30 Ondansetron HCl (Zofran Odt) 8 mg Q6H PRN ODT NAUSEA AND/OR VOMITING; Start 11/17/18 at 17:30 Diagnostic Test (Pha) (Accu-Chek) 1 ea 02 XX ; Start 11/18/18 at 02:00 Insulin Aspart (Novolog Insulin Pen) NOVOLOG *MILD* ALGORITHM WITH MEALS BEDTIME SC Last administered on 11/18/18 12:17; Admin Dose 2 UNIT; Start 11/17/18 at 21:00 MEENU PATRICK DPM Nov 18, 2018 17:58
[2018-11-18] MEDS: ATORVASTATIN 10 MG TAB PO SCH (20:23)
[2018-11-18] MEDS: INSULIN GLARGINE [LANTus] (100 UNITS/ML) SYG SC SCH (20:25)
[2018-11-18 21:25] VITALS: BP 168/72; PULSE 67; RESP 20
[2018-11-19] MEDS: ACCU-CHEK XX SCH (01:10)
[2018-11-19 02:47] VITALS: BP 129/59; PULSE 74; RESP 18
[2018-11-19] MEDS: VANCOMYCIN 750 MG (PMX) 250 ML IVPB SCH ×2 (03:09→17:29)
[2018-11-19] MEDS: PANTOPRAZOLE (EC) 40 MG TAB PO SCH (05:23)
[2018-11-19 08:00] VITALS: BP 128/61; PULSE 59; RESP 20
[2018-11-19] MEDS: INSULIN ASPART [NOVOLOG] 3 ML PEN SC SCH ×6 (08:00→17:28)
[2018-11-19] MEDS: ENOXAPARIN 30 MG/0.3 ML SYG SC SCH (08:58)
[2018-11-19] MEDS: LISINOPRIL 10 MG TAB PO SCH (09:00)
[2018-11-19] MEDS: FISH OIL 1,000 MG CAP PO SCH (09:00)
[2018-11-19] MEDS: TERBINAFINE 250 MG TAB PO SCH (09:00)
--- NOTE | 2018-11-19 12:33 | DS ---
Date/Time of Note Date/Time of Note DATE: 11/19/18 TIME: 12:31 Discharge Summary Admission/Discharge Info Admit Date/Time Nov 11, 2018 at 06:24 Discharge Date/Time Discharge Diagnosis 1. Left diabetic ulceration with osteomyelitis, s/p debridement on 11/17/2018, stable, antibiotics for 6 weeks 2. Diabetes mellitus, stable on insulin 3. Microcytic anemia, follow up with PCP 4. HTN, on lisinopril 5. Dyslipidemia, on lipitor Patient Condition: Stable Hospital Course This is a 58-year-old female with type 2 diabetes, hypertension, iron deficient anemia, diabetic foot ulceration, history of multiple toe amputations, neuropathy, history of osteomyelitis, admitted with left foot diabetic ulcer with draining. Apparently, patient had recent left foot/toe debridement about 2 weeks ago and was seen by her coremaker supervisor in the clinic last week and her sutures were removed. Wound remained open since sutures were taken out and then it started to drain yellow secretions for which she decided to come back to the emergency room. Patient denied chest pain, dizziness, shortness of breath, nausea, vomiting, abdominal pain, loss of consciousness, dizziness, speech difficulties, vision changes, numbness, tingling or other constitutional symptoms. Initial labs hemoglobin 8.4, hematocrit 27.9, potassium 5.4. Did not show any acute process or evidence of osteomyelitis. Venous ultrasound was negative for DVT. Osteomyelitis centered at the first MTP joint involving the first metatarsal and proximal phalanx with adjacent soft tissue wound/ulcer, patient has been on levaquin and vancomycin. She got Debridement of osteomyelitic bone of the first metatarsal and application of allograft of the first metatarsal on 11/17/2018 without complication. She is afebrile. She will be on antibiotics for 6 weeks and she will be followed by home health with wound care and iv antibiotics. She will follow up with PCP and podiatry in one week. Pateint was discharged on 11/18/2018 but outpatient iv vancomycin was not set up. yesterday. Home health is ready for today. Home Meds Active Scripts Levofloxacin* (Levaquin*) 500 Mg Tablet, 500 MG PO DAILY for 42 Days, TAB Prov:LUIZ WATSON MD 11/18/18 Atorvastatin (Atorvastatin) 10 Mg Tablet, 10 MG PO HS for 30 Days, TAB Prov:LUIZ WATSON MD 11/18/18 Vancomycin HCl in Dextrose 5 % (Vancomycin 750 mg/250 ml-D5w) 750 Mg/250 Ml Plast..bag, 750 MG IV BID for 42 Days Prov:LUIZ WATSON MD 11/18/18 Levofloxacin* (Levofloxacin*) 250 Mg Tablet, 250 MG PO DAILY@06, #38 TAB 6 weeks therapy (already received 4 days). Prov:LAMONT MARTINS NP 09/05/18 Pantoprazole* (Pantoprazole*) 40 Mg Tablet.dr, 40 MG PO DAILY@06 for 14 Days, #14 Prov:CASSIUS NEGRETE MD 08/26/18 Acetaminophen* (Tylenol*) 325 Mg Tablet, 650 MG PO Q6H PRN for FEVER GREATER THAN 100.6 for 1 Day, #1 TAB Prov:CASSIUS NEGRETE MD 08/26/18 Reported Medications Meclizine Hcl* (Meclizine Hcl*) 25 Mg Tablet, 25 MG PO TID PRN for DIZZINESS, TAB 10/29/18 Hydralazine Hcl* (Hydralazine Hcl*) 100 Mg Tablet, 100 MG PO BID PRN for ELEVATED BLOOD PRESSURE, #90 TAB 10/29/18 Ferrous Sulfate* (Ferrous Sulfate*) 325 Mg Tabec, 325 MG PO DAILY, TAB 10/29/18 Insulin Glargine,Hum.rec.anlog (Basaglar Kwikpen U-100) 100 Unit/1 Ml Insuln.pen, 40 UNIT SC QHS, EA 10/29/18 Insulin Lispro (Humalog Kwikpen) 200 Unit/1 Ml Insuln.pen, 20 UNIT SQ AC BREAKFAST DINNER, EA 10/29/18 Cholecalciferol (Vitamin D3) (Vitamin D-3) 2,000 Unit Tablet, 2000 UNIT PO DAILY, TAB 08/20/18 Glipizide* (Glipizide*) 10 Mg Tablet, 10 MG PO AC BREAKFAST DINNER, TAB 08/20/18 Sitagliptin Phos-Metformin Hcl (Janumet XR) 100-1,000 Mg Tbmp.24hr, 1 TAB PO WIT H DINNER, #30 TAB 08/20/18 Lisinopril* (Lisinopril*) 5 Mg Tablet, 5 MG PO BID, #30 TAB 08/20/18 Gabapentin* (Gabapentin*) 100 Mg Capsule, 100 MG PO BID, #90 CAP 08/20/18 Follow-up Plan PCP and podiatry in one week home health Primary Care Provider [facility] Pending Labs Laboratory Tests Test 11/18/18 17:51 11/18/18 20:21 11/19/18 01:06 11/19/18 08:12 Bedside 183 202 230 104 Glucose mg/dL (70-220) mg/dL (70-220) mg/dL (70-220) mg/dL (70-220) LUIZ WATSON MD Nov 19, 2018 12:33
[2018-11-19 14:00] VITALS: BP 149/74; PULSE 68; RESP 18
[2018-11-19] MEDS: LEVOFLOXACIN 750MG/D5W (PMX) 150 ML IVPB SCH (14:36)
--- NOTE | 2018-11-19 16:27 | CONS ---
Assessment/Plan Assessment/Plan Hospital Course (Demo Recall) Alert, feels good, no fevers Microbiology: Blood culture on admission grew coag negative staph species one set. Wound cultures growing Klebsiella oxytoca, enterococcus species, Enterobacter cloaca, KEVIN Antimicrobials: Vancomycin, Levaquin Physical examination: This is well-developed fragile elderly woman who is awake in no distress. Head atraumatic normocephalic sclera nonicteric vehicle mucosa dry neck is supple chest rise symmetrical breath sounds diminished bases. Heart: S1-S2. Abdomen soft bowel sounds present. Extremities with left foot dressing intact Assessment: 1. Left diabetic ulceration with osteomyelitis 2. Diabetes 3. Diarrhea, rule out C. difficile 4. Anemia 5. Peripheral arterial disease 6. Bacteremia, consistent with contaminant Plan: S/p debridement 11/17, doug dc on current abx to complete 6 weeks, pt to f/u with podiatry for further rec-s Consultation Date/Type/Reason Admit Date/Time Nov 11, 2018 at 06:24 Initial Consult Date Type of Consult id Date/Time of Note DATE: 11/19/18 TIME: 16:27 Exam/Review of Systems Exam Vitals Vital Signs Date Temp Pulse Resp B/P (MAP) Pulse Ox O2 O2 Flow FiO2 Time Delivery Rate 11/19/18 98.6 68 18 149/74 96 14:00 (99) 11/17/18 Room Air 17:14 Intake and Output 11/18/18 11/18/18 11/19/18 1515:00 23:00 07:00 IntakeIntake Total 600 ml 350 ml 250 ml BalanceBalance 600 ml 350 ml 250 ml Results Result Diagram: 11/17/18 0545 11/18/18 0429 Results 24hrs Laboratory Tests Test 11/18/18 17:51 11/18/18 20:21 11/19/18 01:06 11/19/18 08:12 Bedside Glucose 183 202 230 H 104 Test 11/19/18 11:47 Bedside Glucose 144 Medications Medication Current Medications IV Flush (NS 3 ml) 3 ml PER PROTOCOL IV ; Start 11/11/18 at 07:00 Ondansetron HCl (Zofran Inj) 4 mg Q6H PRN IV NAUSEA/VOMITING; Start 11/11/18 at 07:00 Acetaminophen (Tylenol Tab) 650 mg Q6H PRN PO .PAIN 1-3 OR TEMP Last administered on 11/19/18at 05:23; Admin Dose 650 MG; Start 11/11/18 at 07:00 Acetaminophen/ Hydrocodone Bitart (Dwight (5/325)) 1 tab Q6H PRN PO .MOD PAIN 4- 6 Last administered on 11/14/18at 04:49; Admin Dose 1 TAB; Start 11/11/18 at 07:00 Docusate Sodium (Colace) 100 mg Q12H PRN PO .CONSTIPATION; Start 11/11/18 at 07:00 Bisacodyl (Dulcolax) 5 mg DAILY PRN PO .CONSTIPATION; Start 11/11/18 at 07:00 Vancomycin HCl (Vanco Iv Per Pharmacy) VANCOMYCIN PER PHARMACY PER PROTOCOL XX ; Start 11/11/18 at 07:00 Pantoprazole (Protonix Tab) 40 mg DAILY@06 PO Last administered on 11/19/18at 05:23; Admin Dose 40 MG; Start 11/12/18 at 06:00 Miscellaneous Information 1 ea NOTE XX ; Start 11/11/18 at 08:00 Glucose (Glutose) 15 gm Q15M PRN PO DECREASED GLUCOSE; Start 11/11/18 at 08:00 Glucose (Glutose) 22.5 gm Q15M PRN PO DECREASED GLUCOSE; Start 11/11/18 at 08:00 Dextrose (D50w Syringe) 25 ml Q15M PRN IV DECREASED GLUCOSE; Start 11/11/18 at 08:00 Dextrose (D50w Syringe) 50 ml Q15M PRN IV DECREASED GLUCOSE; Start 11/11/18 at 08:00 Glucagon (Glucagen) 1 mg Q15M PRN IM DECREASED GLUCOSE; Start 11/11/18 at 08:00 Glucose (Glutose) 15 gm Q15M PRN BUCCAL DECREASED GLUCOSE; Start 11/11/18 at 08:00 Levofloxacin/ Dextrose 150 ml @ 100 mls/hr Q24H IVPB Last administered on 11/19/18at 14:36; Admin Dose 100 MLS/HR; Start 11/11/18 at 14:00 Simethicone (Mylicon) 80 mg Q6H PRN PO gas Last administered on 11/13/18at 03:06; Admin Dose 80 MG; Start 11/13/18 at 03:00 Enoxaparin Sodium (Lovenox) 30 mg DAILY SC Last administered on 11/19/18 08:58; Admin Dose 30 MG; Start 11/14/18 at 09:00 Insulin Aspart (Novolog Insulin Pen) 3 unit WITH MEALS SC Last administered on 11/19/18 11:53; Admin Dose 3 UNIT; Start 11/14/18 at 11:30 Insulin Glargine (Lantus) 30 units QHS SC Last administered on 11/18/18 20:25; Admin Dose 30 UNITS; Start 11/14/18 at 21:00 Vancomycin/Sodium Chloride 250 ml @ 125 mls/hr Q12H IVPB Last administered on 11/19/18 03:09; Admin Dose 125 MLS/HR; Start 11/14/18 at 16:00 IV Flush (NS 10 ml) 10 ml PRN PRN IV FLUSH LINE; Start 11/14/18 at 19:00 Hydralazine HCl (Apresoline) 25 mg BID PO Last administered on 11/19/18 08:59; Admin Dose 25 MG; Start 11/15/18 at 21:00 Lisinopril (Zestril) 20 mg BID PO Last administered on 11/19/18 09:00; Admin Dose 20 MG; Start 11/15/18 at 21:00 Atorvastatin Calcium (Lipitor) 10 mg HS PO Last administered on 11/18/18 20:23; Admin Dose 10 MG; Start 11/15/18 at 21:00 Fish Oil (Fish Oil) 2,000 mg BID PO Last administered on 11/19/18 09:00; Admin Dose 2,000 MG; Start 11/16/18 at 09:00 Terbinafine HCl (Lamisil) 250 mg BID PO Last administered on 11/19/18 09:00; Admin Dose 250 MG; Start 11/16/18 at 10:00; Stop 11/23/18 at 09:59 Acetaminophen/ Hydrocodone Bitart (Dwight (10/325)) 1 tab Q6H PRN PO PAIN LEVEL 4-7; Start 11/17/18 at 17:30 Ondansetron HCl (Zofran Odt) 8 mg Q6H PRN ODT NAUSEA AND/OR VOMITING; Start 11/17/18 at 17:30 Diagnostic Test (Pha) (Accu-Chek) 1 ea 02 XX ; Start 11/18/18 at 02:00 Insulin Aspart (Novolog Insulin Pen) NOVOLOG *MILD* ALGORITHM WITH MEALS BEDTIME SC Last administered on 11/19/18at 11:54; Admin Dose 1 UNIT; Start 11/17/18 at 21:00 VIVIENNE COOL NP Nov 19, 2018 16:27
[2018-11-19 20:13] VITALS: BP 134/75; PULSE 69; RESP 18
[2018-11-20] MEDS ORDERED: LEVOFLOXACIN 750 MG TABLET PO SCH (06:00)
== END 2018-11-19 21:41 | disposition home health service (06) | DRG 617 ==
LOC: E/R 03:35 → PP2 06:24
PROVIDERS: ADMIT Family Medicine; ATTEND Internal Medicine
PROC: 30233N1 Transfusion of Nonautologous Red Blood Cells into Peripheral Vein, Percutaneous Approach (ICD-10-PCS; 2018-11-12)
PROC: 02HV33Z Insertion of Infusion Device into Superior Vena Cava, Percutaneous Approach (ICD-10-PCS; 2018-11-14)
PROC: 0QBP0ZZ Excision of Left Metatarsal, Open Approach (ICD-10-PCS; 2018-11-17)
PROC: 0JU Subcutaneous Tissue and Fascia, Supplement (ICD-10-PCS; 2018-11-17)
PROC: 0Y6Q0Z0 Detachment at Left 1st Toe, Complete, Open Approach (ICD-10-PCS; principal; 2018-11-17 15:30)
DX: E11.621 Type 2 diabetes mellitus with foot ulcer (principal); M86.8X7 Other osteomyelitis, ankle and foot; B37.89 Other sites of candidiasis; R78.81 Bacteremia; E11.69 Type 2 diabetes mellitus with other specified complication; E11.65 Type 2 diabetes mellitus with hyperglycemia; N17.9 Acute kidney failure, unspecified; E87.5 Hyperkalemia; E53.8 Deficiency of other specified B group vitamins; E11.40 Type 2 diabetes mellitus with diabetic neuropathy, unspecified; R11.2 Nausea with vomiting, unspecified; B95.2 Enterococcus as the cause of diseases classified elsewhere; B95.61 Methicillin susceptible Staphylococcus aureus infection as the cause of diseases classified elsewhere; B96.1 Klebsiella pneumoniae [K. pneumoniae] as the cause of diseases classified elsewhere; R19.7 Diarrhea, unspecified; E78.5 Hyperlipidemia, unspecified; D50.9 Iron deficiency anemia, unspecified
CPT/HCPCS: 36415; 36430; 36569; 71045; 73718; 76775; 76937; 80048; 80053; 80061; 80202; 82270; 82565; 82962; 83036; 83540; 83735; 83880; 84484; 84520; 85025; 85651; 86850; 86900; 86901; 86920; 87070; 87075; 87081; 87102; 87116; 88304; 88311; 93005; 93971; 96374; 96375; C9363; J0360; J1650; J1815; J1956; J2250; J2270; J2405; J2543; J2916; J3370; J7040; L4386; P9016; Q4118

== ENCOUNTER 2018-12-01 14:21 | Emergency (ER) | payer OTHER ==
[~2018-12-01] VITALS: Wt 61.3 kg
[~2018-12-01 14:21] MED LIST changes: +ATOR10TA65 PO; +LEVO500T48 PO; +VANC750P8 IV
[2018-12-01] MEDS ORDERED: KETOROLAC 15 MG INJ IV STA (17:26)
--- NOTE | 2018-12-01 17:50 | PN ---
DATE: 12/01/2018 HISTORY OF PRESENT ILLNESS: This is a patient we are seeing in followups approximately 2 weeks post-surgical debridement of osteomyelitic bone of the right foot and calcaneal region. The patient comes in today with elevated blood pressure and not feeling well with a headache. Blood sugars were approximately 208. We are sending this patient to the ER for admission. PAST MEDICAL HISTORY: Osteomyelitis, foot infection, left foot. PHYSICAL EXAMINATION: The dressing is removed today and allograft appeared to remain intact. There is local erythema, but no odor and no ascending cellulitis noted. IMPRESSION: Osteomyelitis, diabetic with neuropathy. PLAN: Reapplication of Adaptic, 4 x 4's and roll gauze. A dressing was applied, not to be removed until I see her in house. Dictated By: MEENU SHEPHERD/KAMRYN Conf#: [id number] DID#: [id number] MTDD
[2018-12-01] MEDS ORDERED: ACETAMINOPHEN 325 MG TAB PO ONE (19:30)
[2018-12-01] MEDS ORDERED: ACET-141 PO (21:00)
[2018-12-01] MEDS ORDERED: IBUP-1561 PO (21:00)
[2018-12-01] MEDS ORDERED: AMLO5TAB4 PO (21:01)
[2018-12-01 21:14] VITALS: BP 174/76; PULSE 67; RESP 17
--- NOTE | 2018-12-01 21:14 | ERD ---
ER Documentation Chief Complaint Chief Complaint HTN at home: '210' systolic; took all rx's. LL foot w diabetic ulcer x5mo. HPI 58-year-old female past history of hypertension, diabetes, left foot diabetic ulcer currently on IV antibiotics at home presents for elevated blood pressure at home x2 days. She was at a wound care clinic for left foot wound and was found to have blood pressure systolic in the 200s. She states that she has a headache that is diffuse but has been ongoing since yesterday. She states that the pain is 5 out of 10. She has had prior similar headaches in the past. She has been taking her high blood pressure medication which is a low-dose lisinopril. Otherwise she denies fevers or chills. Denies abdominal pain, nausea, vomiting. Denies chest pain or shortness of breath. No other modifying factors noted. SHe states that she took some Tylenol with some relief however the headache returns. Otherwise no other treatments tried at home ROS All systems reviewed and are negative except as per history of present illness. Medications Home Meds Active Scripts Amlodipine Besylate* (Norvasc*) 5 Mg Tablet, 5 MG PO DAILY for htn, #30 TAB Prov:MICHELLE VILLARREAL DO 12/01/18 Ibuprofen* (Motrin*) 400 Mg Tab, 400 MG PO Q8H PRN for PAIN, #30 TAB Prov:MICHELLE VILLARREAL DO 12/01/18 Acetaminophen* (Acetaminophen*) 500 MG Extra Strength Tablet, 500 MG PO Q4H PRN for PAIN AND OR ELEVATED TEMP, #30 TAB Prov:MICHELLE VILLARREAL DO 12/01/18 Levofloxacin* (Levaquin*) 500 Mg Tablet, 500 MG PO DAILY for 42 Days, TAB Prov:LUIZ WATSON MD 11/18/18 Atorvastatin (Atorvastatin) 10 Mg Tablet, 10 MG PO HS for 30 Days, TAB Prov:LUIZ WATSON MD 11/18/18 Vancomycin HCl in Dextrose 5 % (Vancomycin 750 mg/250 ml-D5w) 750 Mg/250 Ml Plast..bag, 750 MG IV BID for 42 Days Prov:LUIZ WATSON MD 11/18/18 Levofloxacin* (Levofloxacin*) 250 Mg Tablet, 250 MG PO DAILY@06, #38 TAB 6 weeks therapy (already received 4 days). Prov:LAMONT MARTINS TUMBLING BARREL PAINTER 09/05/18 Pantoprazole* (Pantoprazole*) 40 Mg Tablet.dr, 40 MG PO DAILY@06 for 14 Days, #14 Prov:CASSIUS NEGRETE MD 08/26/18 Acetaminophen* (Tylenol*) 325 Mg Tablet, 650 MG PO Q6H PRN for FEVER GREATER THAN 100.6 for 1 Day, #1 TAB Prov:CASSIUS NEGRETE MD 08/26/18 Reported Medications Meclizine Hcl* (Meclizine Hcl*) 25 Mg Tablet, 25 MG PO TID PRN for DIZZINESS, TAB 10/29/18 Hydralazine Hcl* (Hydralazine Hcl*) 100 Mg Tablet, 100 MG PO BID PRN for ELEVATED BLOOD PRESSURE, #90 TAB 10/29/18 Ferrous Sulfate* (Ferrous Sulfate*) 325 Mg Tabec, 325 MG PO DAILY, TAB 10/29/18 Insulin Glargine,Hum.rec.anlog (Basaglar Kwikpen U-100) 100 Unit/1 Ml Insuln.pen, 40 UNIT SC QHS, EA 10/29/18 Insulin Lispro (Humalog Kwikpen) 200 Unit/1 Ml Insuln.pen, 20 UNIT SQ AC BREAKFAST DINNER, EA 10/29/18 Cholecalciferol (Vitamin D3) (Vitamin D-3) 2,000 Unit Tablet, 2000 UNIT PO DAILY, TAB 08/20/18 Glipizide* (Glipizide*) 10 Mg Tablet, 10 MG PO AC BREAKFAST DINNER, TAB 08/20/18 Sitagliptin Phos-Metformin Hcl (Janumet XR) 100-1,000 Mg Tbmp.24hr, 1 TAB PO WITH DINNER, #30 TAB 08/20/18 Lisinopril* (Lisinopril*) 5 Mg Tablet, 5 MG PO BID, #30 TAB 08/20/18 Gabapentin* (Gabapentin*) 100 Mg Capsule, 100 MG PO BID, #90 CAP 08/20/18 Allergies Allergies: Coded Allergies: aspirin (Verified Allergy, Unknown, itching, 11/11/18) PMhx/Soc History of Surgery: Yes (I&D of left foot) Anesthesia Reaction: No Hx Neurological Disorder: No Hx Respiratory Disorders: No Hx Cardiac Disorders: Yes (HTN, High cholesterol) Hx Psychiatric Problems: No Hx Miscellaneous Medical Probl: No Hx Alcohol Use: No Hx Substance Use: No Hx Tobacco Use: No Smoking Status: Never smoker FmHx Family History: No coronary disease Physical Exam Vitals Vital Signs Date Temp Pulse Resp B/P (MAP) Pulse Ox O2 O2 Flow FiO2 Time Delivery Rate 12/01/18 65 17 176/77 98 Room Air 20:56 (110) 12/01/18 76 208/87 20:07 (127) 12/01/18 68 20 205/93 99 Room Air 19:07 (130) 12/01/18 98.0 88 17 190/81 Room Air 18:44 (117) 12/01/18 98.4 82 16 193/79 100 14:42 (117) Physical Exam Const: No acute distress Head: Atraumatic Eyes: Normal Conjunctiva ENT: Normal External Ears, Nose and Mouth. Neck: Full range of motion. No meningismus. Resp: Clear to auscultation bilaterally Cardio: Regular rate and rhythm, no murmurs, peripheral pulses intact Abd: Soft, non tender, non distended. Normal bowel sounds Skin: No petechiae or rashes Back: No midline or flank tenderness Ext: Left foot with bandage clean dry and intact, right upper extremity PICC line noted, muscle strength 5 out of 5 upper and lower extremities Neur: Awake and alert, bilateral upper and lower extremity sensation intact Psych: Normal Mood and Affect Results 24 hrs Current Medications Medications Dose Sig/Jyothi Start Time Status Last (Trade) Ordered Route PRN Stop Time Admin Dose Reason Admin Ketorolac 15 mg ONCE STAT 12/01/18 DC 12/01/18 Tromethamine IV 17:26 12/01/18 17:44 (Toradol) 17:31 Clonidine 0.1 mg ONCE ONCE 12/01/18 DC 12/01/18 (Catapres) PO 19:00 12/01/18 19:06 19:01 650 mg ONCE ONCE 12/01/18 DC 12/01/18 Acetaminophen PO 19:30 12/01/18 19:13 (Tylenol 19:31 Tab) Clonidine 0.1 mg ONCE ONCE 12/01/18 DC 12/01/18 (Catapres) PO 20:30 12/01/18 20:23 20:31 Procedures/MDM Medical Decision Making: Patient presents with elevated blood pressure at home and in the clinic. Review of vital signs here shows a blood pressure of 193/79 on arrival to the ER. sHe does have a mild to moderate headache that she states that is similar to when she had in the past. Patient was given clonidine 0.1 mg in the ER twice. The blood pressure did improve. She also is also given Toradol and Tylenol with improvement in her headache. Given the patient appeared well, there is no history of fever, there is low suspicion for a new infection. Patient is currently on antibiotics for her left foot diabetic wound. Therefore was felt the patient's blood pressure can be managed as an outpatient. Prescription(s): Patient given prescription for supportive medication(s) and a new prescription for amlodipine.. Discussed with patient the importance of close follow-up with her primary care physician for further adjustment of her blood pressure medications. She agrees with plan. Patient advised to follow up with PCP in 1-2 days. Patient advised to return to ED for new or worsening symptoms. Patient stable on discharge from the ED. Disclaimer: Inadvertent spelling and grammatical errors are likely due to EHR/dictation software use and do not reflect on the overall quality of patient care. Also, please note that the electronic time recorded on this note does not necessarily reflect the actual time of the patient encounter. Departure Diagnosis: Primary Impression: Hypertensive urgency Additional Impression: Headache Headache type: unspecified Headache chronicity pattern: unspecified pattern Intractability: not intractable Qualified Codes: R51 - Headache Condition: Fair Patient Instructions: Self-Care for Headaches, Hypertension, Established, Out Of Control Additional Instructions: Llame al doctor MAMARKY y ashley jennifer APRIL PARA DENTRO DE 1-2 LOPEZ.Dgale a la secretaria que nosotros le instruimos hacer esta april.Avise o llame si kline condicin se empeora antes de la april. Regresa aqui si peor o no mejor. MICHELLE VILLARREAL DO December 01, 2018 21:14
== END 2018-12-01 21:14 | disposition home or self-care (01) ==
LOC: FTE 14:21
DX: I16.0 Hypertensive urgency (principal); I10 Essential (primary) hypertension; E11.9 Type 2 diabetes mellitus without complications; Z79.4 Long term (current) use of insulin
CPT/HCPCS: 96374; J1885; Z7502; Z7610

== ENCOUNTER 2019-04-24 10:52 | Emergency (ER) | payer OTHER ==
[~2019-04-24] VITALS: Ht 154.9 cm; Wt 59.4 kg
[~2019-04-24 10:52] MED LIST changes: +ACET-141 PO; +AMLO5TAB4 PO; +FLUT9.9S NASAL; +IBUP-1561 PO; +LORA-186 PO
[2019-04-24 10:55] VITALS: Ht 154.9 cm; Wt 59.4 kg
[2019-04-24] MEDS ORDERED: FLUTICASONE 0.05% 16 GM NAS SPRAY NASAL ONE (12:00)
[2019-04-24] MEDS ORDERED: LORATADINE 10 MG TAB PO ONE (12:00)
[2019-04-24 12:20] VITALS: BP 137/77; PULSE 81; RESP 18
== END 2019-04-24 12:28 | disposition home or self-care (01) ==
LOC: FTE 10:52
DX: J32.9 Chronic sinusitis, unspecified (principal); I10 Essential (primary) hypertension; E11.9 Type 2 diabetes mellitus without complications; Z79.4 Long term (current) use of insulin
CPT/HCPCS: Z7502; Z7610; 99283